=== PATIENT | male | born 1935 | race Caucasian/White ===

== ENCOUNTER → 2017-11-09 12:07 | Outpatient (CLI) | payer MEDICARE, OTHER, SELFPAY ==
[2017-11-09 13:39] LABS: Absolute Lymphocyte Count 1.45 X10^3/ul (0.83-4.51); Absolute Neutrophil Count 3.1 X10^3/uL (2.0-7.7); Basophil# 0.09 X10^3/uL; Basophil% 1.6 % (0-1); Eosinophil# 0.41 X10^3/uL; Eosinophils% 7.3 % (0-5); Hematocrit 37.6 % (40-54); Hemoglobin 11.5 g/dl (13.0-16.5); Lymphocyte # 1.45 X10^3/ul (4.0); Lymphocyte % 25.7 % (19-41); Mean Corp Hgb Conc 30.6 g/gl (32-36); Mean Corpuscular Hgb 25.8 pg (27.0-32.0); Mean Corpuscular Volume 84.5 fL (80-94); Mean Platelet Vol. 10.2 fl (6.2-12.0); Monocyte# 0.58 X10^3/uL; Monocyte% 10.3 % (0-10); Neutrophil % 54.9 % (47-70); Platelet Count 220 K/mm3 (150-450); RBC Distribution Width CV 13.7 % (11.6-14.6); RBC Distribution Width SD 42.2 fl (35.1-43.9); Red Blood Count 4.45 M/mm3 (4.6-6.2); White Blood Count 5.6 K/mm3 (4.4-11.0)
[2017-11-09 13:40] LABS: POSITIVE COUNT NO; POSITIVE DIFFERENTIAL NO; POSITIVE MORPHOLOGY NO
[2017-11-09 14:05] LABS: Hemoglobin A1c 6.4 % (4.2-6.3)
[2017-11-09 14:10] LABS: AST(SGOT) 19 U/L (15-37); Alanine Aminotransfer ALT/SGPT 25 U/L (16-61); Albumin, Serum 3.5 g/dL (3.2-5.0); Alkaline Phosphatase 42 U/L (45-117); Bilirubin, Direct 0.22 mg/dL (0.00-0.30); Cholesterol 164 mg/dL (200); Ferritin 14 ng/mL (26-388); Globulin 3.9 g/dL (2.2-4.2); High Density Lipoprotein 36 mg/dL; Protein, Total 7.4 g/dL (6.4-8.2); Triglycerides 113 mg/dL; Very Low Density Lipoprotein 23 mg/dL (5-40)
== END ==
PROVIDERS: Family Provider Family Medicine; PCP Family Medicine; Visit Provider Physician Assistant Medical
DX: E11.59 Type 2 diabetes mellitus with other circulatory complications (principal); D64.9 Anemia, unspecified; I10 Essential (primary) hypertension; E78.5 Hyperlipidemia, unspecified; Z79.899 Other long term (current) drug therapy
CPT/HCPCS: 80061; 80076; 82728; 83036; 85025

== ENCOUNTER 2017-12-15 15:30 | Outpatient (RCR) | payer MEDICARE, OTHER, SELFPAY ==
--- NOTE | 2017-11-29 19:17 | HP.PTEVAL_ITS ---
Patient's Visit Information AALIYAH HOLM is a 82 year old M referred to Physical Therapy by David Gustafson DO with a diagnosis of Spondylosis/R knee pain.. Date of Evaluation: 11/21/17 Physical Therapist: Dylan Mas DPT, OC - Visit Plan Frequency: 2x /Week Duration: 4 Weeks Plan: Cont w/POC. - Subjective Subjective: Sent over as he had the flu in June and was down for a long time. R knee hurts and limits him descending steps. Balance is not good anymore. No falls. No cane or walker needed. Very little LBP lately, not an issue. Hasn't had it in a week and it was 10. Sleep is OK except when nauseated on pill for that day. No dizzyness. Retired for 20 years. Basic ADLs are OK. He put in a garden and manages it himself without unsteadyiness. He enjoys playing musical instruments. Bedroom is upstairs which he climbs needing rail. He needs to be still when standing for balance. His goal is to get a HEP for balance and strength. - Pain R knee Pain Intensity (Out of 10): 5 Comment: w/ certain mvmts only LB Pain Intensity (Out of 10): 0 Pain Intensity Range: 0, 4 Comment: depends on the day - Objective Strength LE 4-/5, Knee aROM to 110 R and 115 L. LB AROM moderately limited in ext and SB, minimally limited in flexion.No pain. reflexes 2/3 patella and achilles. Sensation WNL to gross light touch in LE. Coordination to reciprocal tapping is OK. Kiki servin walks well but is hunched over in his posture. - Balance Scores Functional Gait Assessment Score: 24 % Disability: 20.0000 CATSIB Score (Max score 120 seconds): 105 - Goals Goal 1:: Up and down steps without R knee pain Goal Time Frame: 2-4 Weeks Goal 2:: abolish LBP Goal Time Frame: 2-4 Weeks Goal 3:: FGA 25/30 and feel 50% improved balance. Goal Time Frame: 2-4 Weeks Goal 4:: I approp HEP to minimize future problems. Goal Time Frame: 2-4 Weeks - Rehabilitation Potential Physical Therapy Diagnosis: R knee degeneration and gait abnormalities. Rehabilitation Potential: Fair - Anticipated Interventions Patient/Client Instruction: Educate patient on: Condition, Plan of Care For the Purpose of:: To decrease pain, To increase ROM, To improve ability of physical actions for home/community/work/leisure Therapeutic Exercise to Include: Strength training, Balance training, Passive ROM, Active ROM For the Purpose of:: To improve ability of physical actions for home/community/ work/leisure, To improve safety Thank you for the opportunity to evaluate your patient. For Medicare and Medicare HMO plans, please review the plan of care and approve it. It will need to be FAXED BACK to us at [phone] for Medicare purposes. Please let me know if there are questions or concerns regarding this plan of care. Physician Signature: Date:
--- NOTE | 2017-12-15 16:23 | HP.PTREVAL_ITS ---
David Gustafson, DO, It has been my pleasure to treat AALIYAH HOLM over the last 7 visits for Spondylosis/R knee pain.. Please see the progress note below for an update on the physical therapy plan of care! Subjective: Better. Then about the same LB is sore in am then it goes away. Knee doing OK but still doing one step neal time. Getting around better. Worked out in yard yesterday alot and stiff this morning. No f/u with doctor. On the right track, but will take a while. Has home ex sheet and doesn't do them as often as he should. Wants to continue at home. Wants to Objective/Function: Pt doing OK without much functional difference but wants to continue with HEP instead of more therapy. Plan Plan: f/u in 3 weeks to ensure progress and check balance and progress ex if needed. Goals Goal 1:: Up and down steps without R knee pain Goal Time Frame: 2-4 Weeks Goal Progress: Not Progressing Goal 2:: abolish LBP Goal Time Frame: 2-4 Weeks Goal Progress: hurts in am. Goal 3:: FGA 25/30 and feel 50% improved balance. Goal Time Frame: 2-4 Weeks Goal Progress: FGA met Goal 4:: I approp HEP to minimize future problems. Goal Time Frame: 2-4 Weeks Goal Progress: Goal Met Anticipated Interventions Patient/Client Instruction: Educate patient on: Condition, Plan of Care For the Purpose of:: To decrease pain, To increase ROM, To improve ability of physical actions for home/community/work/leisure Therapeutic Exercise to Include: Strength training, Balance training, Passive ROM, Active ROM For the Purpose of:: To improve ability of physical actions for home/community/ work/leisure, To improve safety Please do not hesitate to contact me at [phone] by phone or Fax: if you have questions or concerns regarding this new plan of care! Sincerely, Dylan Mas, JOANT, OC
--- NOTE | 2018-03-14 10:46 | HP.PT.NRP ---
HP - Discharge Summary (1) - Patient Information AALIYAH HOLM was seen in my office for initial evaluation on 11/21/17. The following Plan of Care was established for this patient: Initial Frequency: 2x /Week Initial Duration: 4 Weeks - Anticipated Interventions Patient/Client Instruction: Educate patient on: Condition, Plan of Care For the Purpose of:: To decrease pain, To increase ROM, To improve ability of physical actions for home/community/work/leisure Therapeutic Exercise to Include: Strength training, Balance training, Passive ROM, Active ROM For the Purpose of:: To improve ability of physical actions for home/community/work/leisure, To improve safety This patient was last seen in our office . Pertinent comments regarding their Physical therapy will appear below: Patient has not attended physical therapy in over 8 weeks. At this time patient is appropriate for d/c and return to MD as needed. At this point I will be discontinuing this patient from physical therapy. I would be happy to see this patient again in the future if found appropriate by the physician. Thank you! Areli Vogt
== END 2017-12-15 19:00 | disposition home or self-care (01) ==
LOC: PT 15:30
PROVIDERS: Family Provider Family Medicine; PCP Family Medicine; Visit Provider Family Medicine
DX: M25.561 Pain in right knee (principal); M47.896 Other spondylosis, lumbar region; R26.89 Other abnormalities of gait and mobility
CPT/HCPCS: 97110; 97162; 97530; G8978; G8979

== ENCOUNTER → 2018-05-02 12:15 | Outpatient (CLI) | payer MEDICARE, OTHER, SELFPAY ==
[2018-05-02 13:37] LABS: Absolute Lymphocyte Count 1.32 X10^3/ul (0.83-4.51); Absolute Neutrophil Count 2.6 X10^3/uL (2.0-7.7); Basophil# 0.07 X10^3/uL; Basophil% 1.5 % (0-1); Eosinophil# 0.29 X10^3/uL; Hematocrit 39.1 % (40-54); Hemoglobin 11.9 g/dl (13.0-16.5); Lymphocyte # 1.32 X10^3/ul (4.0); Lymphocyte % 27.5 % (19-41); Mean Corp Hgb Conc 30.4 g/gl (32-36); Mean Corpuscular Hgb 26.7 pg (27.0-32.0); Mean Corpuscular Volume 87.9 fL (80-94); Mean Platelet Vol. 10.7 fl (6.2-12.0); Monocyte# 0.51 X10^3/uL; Monocyte% 10.6 % (0-10); Neutrophil % 54.2 % (47-70); POSITIVE COUNT NO; POSITIVE DIFFERENTIAL NO; POSITIVE MORPHOLOGY NO; Platelet Count 209 K/mm3 (150-450); RBC Distribution Width CV 14.5 % (11.6-14.6); RBC Distribution Width SD 46.4 fl (35.1-43.9); Red Blood Count 4.45 M/mm3 (4.6-6.2); White Blood Count 4.8 K/mm3 (4.4-11.0)
[2018-05-02 13:55] LABS: Hemoglobin A1c 6.4 % (4.2-6.3)
[2018-05-02 14:12] LABS: Amylase 86 U/L (25-115); Anion Gap 8 (5-15); BUN 20 mg/dL (7-18); BUN/Creat Ratio 18.3 RATIO (10-20); Calcium,Total 8.8 mg/dL (8.5-10.1); Chloride 104 mmol/L (98-107); Creatinine, Serum 1.09 mg/dL (0.70-1.30); EST Glomerular Filtration Rate 69 mL/min (>60); Est Glom Filt Rate - Afr Amer 83 mL/min (>60); Ferritin 12 ng/mL (26-388); Glucose 110 mg/dL (74-106); Iron 71 ug/dL (65-175); Lipase 154 U/L (73-393); Potassium 3.9 mmol/L (3.5-5.1); Sodium Level 142 mmol/L (136-145)
== END ==
PROVIDERS: Family Provider Family Medicine; PCP Family Medicine; Referring Provider Family Medicine; Visit Provider Family Medicine
DX: R10.9 Unspecified abdominal pain (principal); E11.59 Type 2 diabetes mellitus with other circulatory complications; I10 Essential (primary) hypertension; D50.9 Iron deficiency anemia, unspecified
CPT/HCPCS: 36415; 80048; 82150; 82728; 83036; 83540; 83690; 85025

== ENCOUNTER 2018-08-24 12:23 | Emergency (ER) | payer MEDICARE, OTHER, SELFPAY ==
[2018-08-24 12:24] VITALS: BP 165/104; PULSE 60; RESP 16; TEMP 36.1; O2SAT 96; BMI 29.5
--- NOTE | 2018-08-24 13:50 | CT_ITS ---
STUDY: CT ABDOMEN AND PELVIS WITHOUT CONTRAST REASON FOR EXAM: Male, 83 years old. Bilateral upper abdominal pain. RADIATION DOSAGE (If Supplied By Facility): CTDIvol = ( 8.20 ) mGy, DLP = ( 368.74 ) mGycm TECHNIQUE: Transaxial images were obtained from the dome of the diaphragm to the symphysis pubis without oral contrast, and without intravenous contrast. Sagittal and coronal images were reconstructed. Individualized dose optimization techniques were used for this CT. COMPARISON: None. FINDINGS: Mild degree of increased linear markings in the posterior lateral aspect of the right lower lobe suggestive of scarring. Focal pleural thickening at that site. Mild degree of increased linear markings extending to the pleural surface in the lateral aspect of the lingular segment of the left upper lobe suggestive of scarring. Coronary artery calcification. Normal liver. Normal gallbladder and extrahepatic biliary system. Normal spleen. Normal pancreas. Normal bilateral adrenal glands. Normal right kidney. There is a 3.3 cm x 2.4 cm cyst in the anterior midportion of the left kidney. This extends into the parapelvic region. Normal visualized stomach. Normal small intestine. There are multiple colonic diverticula consistent with diverticulosis. The appendix is visualized and appears normal. There is diffuse atherosclerotic calcification of the abdominal aorta and the major visceral branches, without a demonstrated aneurysm. Normal inferior vena cava. Normal retroperitoneum. The bladder is empty. There is diffuse thickening of the bladder wall. There is enlargement of the prostate gland. It measures 4.6 cm x 4.6 cm. This causes indentation at the bladder base. Central prostatic calcification. Small bilateral inguinal hernias containing fat. There are degenerative changes of the visualized lumbar spine. CT/Abdomen/Pelvis without Cont IMPRESSION: Findings suggestive of scarring in the lower lobes bilaterally. Left renal cyst. Sigmoid diverticular disease. Bladder wall thickening. Electronically Signed: Scar Peña, at 15:39 EST , Service support ,
--- NOTE | 2018-08-24 13:50 | RAD_ITS ---
STUDY: X-RAY CHEST REASON FOR EXAM: Male, 83 years old. Chest pain. TECHNIQUE: Single AP portable view of the chest. COMPARISON: Comparison is made with prior study dated December 17, 2016. FINDINGS: Stable mild increased markings at the lung bases suggestive of bibasilar scarring. There is blunting of the right costophrenic angle. Sternal cerclage wires and vascular clips are present from a prior sternotomy and coronary artery bypass graft procedure (CABG). Normal mediastinum and sen. Normal visualized pulmonary arteries. There is atherosclerotic calcification of the aortic arch with tortuosity. There are diffuse degenerative changes of the visualized thoracic spine. Normal visualized ribs, clavicles, and shoulders. There is no demonstrated abnormality of the visualized soft tissue structures of the upper abdomen. RAD/Chest 1 View (Portable) IMPRESSION: Stable mild increased markings at the lung bases suggestive of scarring. Electronically Signed: Scar Peña, at 14:36 EST , Service support ,
--- NOTE | 2018-08-24 13:50 | EKG12_ITS ---
Test Reason : EPIGASTRIC PAIN Blood Pressure : / mmHG Vent. Rate : 057 BPM Atrial Rate : 057 BPM P-R Int : 234 ms QRS Dur : 096 ms QT Int : 416 ms P-R-T Axes : 108 005 022 degrees QTc Int : 404 ms Sinus bradycardia with 1st degree A-V block Otherwise normal ECG Confirmed by NILES PEARCE, OMAR ([id number]), department editor UVALDO MENDOSA ([id number]) on 08/29/2018 9:08:16 AM Referred By: BARTOLO Confirmed By:OMAR CAGE MD
[2018-08-24 14:18] VITALS: BP 176/76; PULSE 57; RESP 17; O2SAT 95
[2018-08-24 14:28] LABS: Absolute Lymphocyte Count 1.45 X10^3/ul (0.83-4.51); Absolute Neutrophil Count 3.3 X10^3/uL (2.0-7.7); Basophil# 0.05 X10^3/uL; Basophil% 0.9 % (0-1); Eosinophil# 0.26 X10^3/uL; Eosinophils% 4.8 % (0-5); Hematocrit 42.6 % (40-54); Lymphocyte # 1.45 X10^3/ul (4.0); Lymphocyte % 26.7 % (19-41); Mean Corp Hgb Conc 30.5 g/gl (32-36); Mean Corpuscular Hgb 26.6 pg (27.0-32.0); Mean Corpuscular Volume 87.1 fL (80-94); Mean Platelet Vol. 10.2 fl (6.2-12.0); Monocyte# 0.36 X10^3/uL; Monocyte% 6.6 % (0-10); Neutrophil # 3.31 X10^3/uL (2.7-7.7); Neutrophil % 60.8 % (47-70); Platelet Count 217 K/mm3 (150-450); RBC Distribution Width CV 14.8 % (11.6-14.6); RBC Distribution Width SD 47.4 fl (35.1-43.9); Red Blood Count 4.89 M/mm3 (4.6-6.2); White Blood Count 5.4 K/mm3 (4.4-11.0)
[2018-08-24 14:33] LABS: POSITIVE COUNT NO; POSITIVE DIFFERENTIAL NO; POSITIVE MORPHOLOGY NO
[2018-08-24 14:40] LABS: ALB/GLOB Ratio 0.9 RATIO (0.9-2.4); AST(SGOT) 22 U/L (15-37); Alanine Aminotransfer ALT/SGPT 34 U/L (16-61); Albumin, Serum 3.8 g/dL (3.2-5.0); Alkaline Phosphatase 50 U/L (45-117); Anion Gap 6 (5-15); BUN 19 mg/dL (7-18); BUN/Creat Ratio 18.6 RATIO (10-20); Calcium,Total 9.3 mg/dL (8.5-10.1); Chloride 100 mmol/L (98-107); Creatinine, Serum 1.02 mg/dL (0.70-1.30); EST Glomerular Filtration Rate 74 mL/min (>60); Est Glom Filt Rate - Afr Amer 89 mL/min (>60); Estimated Creatinine Clearance 43.39 ml/min; Globulin 4.1 g/dL (2.2-4.2); Glucose 112 mg/dL (74-106); Lipase 164 U/L (73-393); Potassium 3.9 mmol/L (3.5-5.1); Protein, Total 7.9 g/dL (6.4-8.2); Sodium Level 136 mmol/L (136-145)
[2018-08-24 16:04] VITALS: BP 136/72; PULSE 57; RESP 18; O2SAT 94
--- NOTE | 2018-08-24 16:04 | ED.VISSUMM ---
- ER Visit Summary Date of Service: 08/24/18 Chief Complaint: Abdominal pain History of Present Illness: The patient is a [address] Gustafson and Dr. Cardoso. He reports that he was pulling on his support hose last night when he got a cramp in the upper left abdomen. States that he continues to have that pain. He reports it was sharp at worst and is crampy now. 7 out of 10 worsened through 10 currently. Is worsened by nothing relieved by nothing. He had nausea without vomiting. No diarrhea. Last bowel was yesterday. No melena hematochezia. No dysuria frequency. Review of systems patient reports that he has chest pain just above this area. He describes this as a tightness. States that it comes and goes ever since last night. His last minute at a time. Is 2 out of 10 currently. Is 4-10 at worst. This is unchanged with exertion or ambulation. He does report that he feels mildly short of breath. Patient does report he has had similar abdominal pain in the past after eating cheese. He denies any specific fatty food intolerance however. Physical Examination: Vitals: Stable. Afebrile. General: Well-nourished and well-developed. Head: Normocephalic atraumatic. Neck: Supple, no lymphadenopathy. No JVD. Nontender. Cardiovascular: Regular rate and rhythm. 2 out of 6 systolic murmur. Respiratory: No respiratory distress. Clear to auscultation bilaterally. Abdominal: Soft, nontender, nondistended, normal bowel sounds. No guarding, rebound, or peritoneal signs. Back: Nontender. Extremities: Nontender, no edema. Skin: Normal color, no rash. Neurologic: Alert and oriented ?3. Cranial nerves II through XII are intact. Normal strength and sensation. Psych: Normal affect. Test Results: EKG sinus bradycardia with first-degree AV block rate of [address] changes. Unchanged from February 2015. CBC is normal. Chem-7 shows a glucose 112 and BUN of 19. LFTs normal. Lipase normal. Troponin is 0.023. Reviewed his prior labs. From 07/2014 his troponin was 0.02-0.05. Chest x-ray shows chronic changes. Clinical Impression(s) from Imaging Studies Abdomen/Pelvis CT 08/24/18 13:50 IMPRESSION: Findings suggestive of scarring in the lower lobes bilaterally. Left renal cyst. Sigmoid diverticular disease. Bladder wall thickening. Electronically Signed: Scar Peña, at 15:39 EST , Service support , Chest X-Ray 08/24/18 13:50 IMPRESSION: Stable mild increased markings at the lung bases suggestive of scarring. Electronically Signed: Scar Peña, at 14:36 EST , Service support , Emergency Department Course and Treatment: Patient refused pain or nausea medications. He is resting comfortably. I reviewed his records. He had a stress test in June 2017 that was normal. His ejection fraction was 74%. His chest pain is very atypical at this time. I do not feel that he needs to be hospitalized for this. Treatment Plan: Discussed the patient that I suspect that his abdominal pain is from a abdominal wall strain while putting on his support hose last night. However, I also discussed them that I cannot rule out that he has biliary disease. He is instructed to follow-up Dr. Gustafson in 1 day for another exam. Return to the emergency department for any worsening symptoms. Disposition: To home in improved and stable condition. Impression: 1. Abdominal pain, uncertain cause. This note was generated with [employer] dictation software. It may contain incorrect words, spelling, and punctuation that were not noted in review of the chart prior to signing ED Disposition - Plan for ED Patient: Disposition: Home or Assisted Living Instructions: ED Abdominal Pain Unkn Cause Prescriptions: Ondansetron [Zofran Odt] 4 mg PO Q8H PRN PRN #10 tablet PRN Reason: Nausea Referrals: David Gustafson DO [Primary Care Provider] - 1 Day for another exam
[2018-08-24 16:12] VITALS: BP 136/72; PULSE 57; O2SAT 95
== END 2018-08-24 16:17 | disposition home or self-care (01) ==
LOC: ED 14:40
PROVIDERS: Emergency Provider Emergency Medicine; Family Provider Family Medicine; PCP Family Medicine
DX: R10.9 Unspecified abdominal pain (principal); R07.89 Other chest pain; R11.0 Nausea; I25.10 Atherosclerotic heart disease of native coronary artery without angina pectoris; I44.0 Atrioventricular block, first degree; R00.1 Bradycardia, unspecified; I10 Essential (primary) hypertension; R73.03 Prediabetes; Z79.01 Long term (current) use of anticoagulants; Z86.711 Personal history of pulmonary embolism; Z86.73 Personal history of transient ischemic attack (TIA), and cerebral infarction without residual deficits; Z79.82 Long term (current) use of aspirin; Z79.899 Other long term (current) drug therapy
CPT/HCPCS: 71045; 74176; 80053; 83690; 84484; 85025; 93005; 99284; A4216

== ENCOUNTER → 2018-11-01 11:14 | Outpatient (CLI) | payer MEDICARE, OTHER, SELFPAY ==
[2018-11-01 12:48] LABS: Absolute Lymphocyte Count 1.65 X10^3/ul (0.83-4.51); Absolute Neutrophil Count 2.8 X10^3/uL (2.0-7.7); Basophil# 0.09 X10^3/uL; Basophil% 1.6 % (0-1); Eosinophil# 0.42 X10^3/uL; Eosinophils% 7.6 % (0-5); Hematocrit 40.4 % (40-54); Hemoglobin 12.8 g/dl (13.0-16.5); Lymphocyte # 1.65 X10^3/ul (4.0); Lymphocyte % 29.9 % (19-41); Mean Corp Hgb Conc 31.7 g/gl (32-36); Mean Corpuscular Hgb 27.6 pg (27.0-32.0); Mean Corpuscular Volume 87.1 fL (80-94); Mean Platelet Vol. 10.6 fl (6.2-12.0); Monocyte# 0.54 X10^3/uL; Monocyte% 9.8 % (0-10); Neutrophil % 50.7 % (47-70); Platelet Count 204 K/mm3 (150-450); RBC Distribution Width CV 14.3 % (11.6-14.6); RBC Distribution Width SD 44.8 fl (35.1-43.9); Red Blood Count 4.64 M/mm3 (4.6-6.2); White Blood Count 5.5 K/mm3 (4.4-11.0)
[2018-11-01 12:49] LABS: POSITIVE COUNT NO; POSITIVE DIFFERENTIAL NO; POSITIVE MORPHOLOGY NO
[2018-11-01 13:04] LABS: Hemoglobin A1c 6.5 % (4.2-6.3)
[2018-11-01 13:12] LABS: ALB/GLOB Ratio 0.9 RATIO (0.9-2.4); AST(SGOT) 22 U/L (15-37); Alanine Aminotransfer ALT/SGPT 33 U/L (16-61); Albumin, Serum 3.5 g/dL (3.2-5.0); Alkaline Phosphatase 40 U/L (45-117); Anion Gap 7 (5-15); BUN 25 mg/dL (7-18); BUN/Creat Ratio 23.1 RATIO (10-20); Bilirubin, Direct 0.17 mg/dL (0.00-0.30); Chloride 103 mmol/L (98-107); Cholesterol 182 mg/dL (200); Creatinine, Serum 1.08 mg/dL (0.70-1.30); EST Glomerular Filtration Rate 69 mL/min (>60); Est Glom Filt Rate - Afr Amer 84 mL/min (>60); Ferritin 26 ng/mL (26-388); Globulin 3.7 g/dL (2.2-4.2); Glucose 114 mg/dL (74-106); High Density Lipoprotein 38 mg/dL; Potassium 3.5 mmol/L (3.5-5.1); Protein, Total 7.2 g/dL (6.4-8.2); Sodium Level 142 mmol/L (136-145); Triglycerides 131 mg/dL; Uric Acid 7.7 mg/dL (3.5-7.2); Very Low Density Lipoprotein 26 mg/dL (5-40)
[2018-11-01 13:15] LABS: Microalbumin,Random Urine 11.5 mg/L (NO RANGE EST.)
== END ==
PROVIDERS: Physician Assistant Medical; Family Provider Family Medicine; PCP Family Medicine; Referring Provider Family Medicine; Visit Provider Family Medicine
DX: E11.59 Type 2 diabetes mellitus with other circulatory complications (principal); I10 Essential (primary) hypertension; D50.9 Iron deficiency anemia, unspecified; E78.5 Hyperlipidemia, unspecified; M10.9 Gout, unspecified
CPT/HCPCS: 36415; 80053; 80061; 82043; 82248; 82570; 82728; 83036; 84550; 85025

== ENCOUNTER → 2018-12-20 10:52 | Outpatient (CLI) | payer MEDICARE, OTHER, SELFPAY ==
[2018-12-11 14:30] VITALS: BMI 29.0
== END ==
PROVIDERS: Family Provider Family Medicine; PCP Family Medicine; Referring Provider Internal Medicine Cardiovascular Disease; Visit Provider Internal Medicine Cardiovascular Disease
DX: R00.2 Palpitations (principal)
CPT/HCPCS: 93225; 93226

== ENCOUNTER → 2018-12-22 12:40 | Outpatient (CLI) | payer MEDICARE, OTHER, SELFPAY ==
[2018-12-11 14:30] VITALS: BMI 29.0
--- NOTE | 2018-12-22 12:42 | ECHOD_ITS ---
Reason For Study: Valve Replacement Eval Procedure This was a 2D Doppler, Color Flow transthoracic echocardiogram. Exam performed in department. Left Ventricle Normal LV size. Left ventricular systolic function is normal. The estimated ejection fraction is 60 %. There is evidence of diastolic dysfunction. No regional wall motion abnormalities noted. Right Ventricle Normal RV size. Normal systolic function. Atria The left atrium is mildly enlarged. Normal right atrium. No doppler evidence for ASD. Bubble contrast study negative for right to left interatrial shunt. 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 Trivial transvalvular insufficiency of the mitral valve. Tricuspid Valve Normal tricuspid valve. Mild to moderate (1-2+) tricuspid valve insufficiency. Right ventricular systolic pressure estimated to be 39 mmHg. Aortic Valve Trisinus/trileaflet aortic valve. Mild diffuse aortic valve thickening. Mild focal aortic valve calcification. Aortic sclerosis, no stenosis. Trivial aortic valve insufficiency. Pulmonic Valve The pulmonic valve is not well visualized. Mild (1+) pulmonic valve insufficiency. Great Vessels Normal sized aortic root. Pericardium/Pleural No pericardial effusion. Medication Performed a rapid injection of agitated mix of 9 cc saline and 1cc air to assess for atrial septal defect. MMode/2D Measurements & Calculations LVIDd: 4.1 cm IVSd: 1.2 cm Ao root diam: 3.3 cm LVIDs: 2.9 cm LVPWd: 1.2 cm RVDd: 4.4 cm FS: 29.6 % LAV(MOD-bp): 51.6 ml LVAd ap4: 24.5 cm2 SV(MOD-sp4): 40.0 ml LAV(MOD-bp) Indexed: 29.0 ml/m2 EDV(MOD-sp4): 67.4 ml LAV(MOD-sp2): 39.9 ml EDV(sp4-el): 71.4 ml LAV(MOD-sp4): 61.1 ml LVAs ap4: 13.8 cm2 ESV(MOD-sp4): 27.5 ml ESV(sp4-el): 28.5 ml EF(MOD-sp4): 59.3 % EF(sp4-el): 60.0 % SV(sp4-el): 42.9 ml LA A4 area: 20.3 cm2 LA dimension(2D): 4.7 cm RA A4 area: 19.3 cm2 Time Measurements MV dec time: 0.10 sec Doppler Measurements & Calculations MV E max tan: 115.9 cm/sec Lat Peak E' Tan: 5.4 cm/sec Med Peak E' Tan: 6.3 cm/sec MV A max tan: 125.3 cm/sec E/E' lat: 21.4 E/E' med: 18.3 MV E/A: 0.92 MV V2 max: 144.1 cm/sec MV P1/2t max tan: 116.5 cm/sec Ao V2 max: 174.5 cm/sec MV max P.3 mmHg MV P1/2t: 77.4 msec Ao max P.2 mmHg MV V2 mean: 71.1 cm/sec MV dec slope: 440.8 cm/sec2 Ao V2 mean: 117.9 cm/sec MV mean P.5 mmHg MVA(P1/2t): 2.8 cm2 Ao mean P.2 mmHg MV V2 VTI: 40.7 cm Ao V2 VTI: 35.6 cm LV V1 max: 109.5 cm/sec PA V2 max: 111.7 cm/sec PI end-d tan: 114.6 cm/sec LV V1 max P.8 mmHg TR max tan: 301.2 cm/sec TR max P.3 mmHg Interpretation Summary Left ventricular systolic function is normal. The estimated ejection fraction is 60 %. The left atrium is mildly enlarged. 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 Trivial transvalvular insufficiency of the mitral valve. Mild to moderate (1-2+) tricuspid valve insufficiency. Aortic sclerosis, no stenosis. Trivial aortic valve insufficiency. Mild (1+) pulmonic valve insufficiency. Right ventricular systolic pressure estimated to be 39 mmHg. There is evidence of diastolic dysfunction. Ordering Physician: Pierre Cardoso Referring Physician: David Gustafson Performed By: Shaila Camacho, ELVISCS, RVT
== END ==
PROVIDERS: Family Provider Family Medicine; PCP Family Medicine; Referring Provider Internal Medicine Cardiovascular Disease; Visit Provider Internal Medicine Cardiovascular Disease
DX: Z98.890 Other specified postprocedural states (principal)
CPT/HCPCS: 93306; A4216

== ENCOUNTER 2019-04-06 13:34 | Emergency (ER) | payer MEDICARE, OTHER, SELFPAY ==
[2018-12-11 14:30] VITALS: BMI 29.0
[2019-04-06 13:36] VITALS: BP 156/88; PULSE 66; RESP 16; TEMP 36.7; O2SAT 98; BMI 28.8
--- NOTE | 2019-04-06 13:42 | VDLE_ITS ---
Reason For Study: PAIN RIGHT LEFT CFV is compressible, spontaneous, phasic, CFV is compressible, spontaneous, phasic, competent and demonstrates normal competent, and demonstrates normal augmentation. augmentation. FV is compressible, spontaneous, phasic, competent and demonstrates normal augmentation. POP V is compressible, spontaneous, phasic, competent and demonstrates normal augmentation. T/P Trunk is compressible. PTV is compressible. RT PerV is compressible. RT ASV is NONCOMPRESSIBLE from mid-thigh to just above knee. RT GSV is NONCOMPRESSIBLE from mid-calf to distal calf. Procedure Exam performed portable in ED. A preliminary report was called and/or faxed to ED. Interpretation Summary Deep veins of the right lower extremity are patent and compressible segmentally. There is no evidence of right lower extremity deep vein thrombosis. Valvular competence appears intact within the proximal deep venous system on the right . Acute superficial thrombophlebitis is noted in the right great saphenous vein from the mid- to distal calf, and in the right accessory saphenous vein from the mid-thigh to just above the knee. Ordering Physician: Anthony Hedrick Referring Physician: MONTY GREENE Performed By: Minerva Oropeza, BETH, RVT
--- NOTE | 2019-04-06 13:53 | ED.DCSUM_ITS ---
- ER Visit Summary Date of Service: 04/06/19 Chief Complaint: Right lower extremity pain History of Present Illness: The patient is a 83 M with a history of DVT. He stopped taking Xarelto about 10 days ago under his doctor's care secondary to multiple medication reactions. He was not having any bleeding. He is having increasing redness and pain to his right medial thigh and right medial richter. Denies any other associated symptoms. He does not have an IVC filter. Physical Examination: Afebrile and vital signs unremarkable. Heart regular. Lungs clear. Patient has erythema and mild tenderness to his right medial mid thigh and right medial richter with palpable cords. Otherwise compartments soft and exam unremarkable. He is neurovascular intact distally. Test Results: Duplex ultrasound pending. Emergency Department Course and Treatment: Patient requests Tylenol for pain. We will check an ultrasound. Ultrasound shows superficial clots, no deep venous clots. Patient was educated to use warm compresses, anti-inflammatories, and elevation. Follow-up with primary care. Treatment Plan: As above Disposition: Discharge Impression: 1. Superficial venous thrombophlebitis This note was generated with [employer] dictation software. It may contain incorrect words, spelling, and punctuation that were not noted in review of the chart prior to signing ED Disposition - Plan for ED Patient: Referrals: David Gustafson DO [Primary Care Provider] -
--- NOTE | 2019-04-06 14:42 | ED.DEP ---
ED Disposition - Plan for ED Patient: Instructions: THROMBOPHLEBITIS, Superficial Referrals: David Gustafson DO [Primary Care Provider] -
[2019-04-06 14:48] VITALS: BP 144/74; PULSE 77; RESP 18; O2SAT 96
== END 2019-04-06 14:49 | disposition home or self-care (01) ==
LOC: ED 13:52
PROVIDERS: Emergency Provider Emergency Medicine; Family Provider Family Medicine; PCP Family Medicine
DX: I80.01 Phlebitis and thrombophlebitis of superficial vessels of right lower extremity (principal); I25.10 Atherosclerotic heart disease of native coronary artery without angina pectoris; E11.9 Type 2 diabetes mellitus without complications; I10 Essential (primary) hypertension; Z79.01 Long term (current) use of anticoagulants; Z79.82 Long term (current) use of aspirin; Z79.899 Other long term (current) drug therapy; Z86.718 Personal history of other venous thrombosis and embolism; Z95.1 Presence of aortocoronary bypass graft; Z95.5 Presence of coronary angioplasty implant and graft
CPT/HCPCS: 93971; 99282

== ENCOUNTER 2019-04-14 06:43 | Observation (INO) | payer MEDICARE, OTHER, SELFPAY ==
[2019-04-14] VITALS (16 sets, daily range): BP systolic 114–181; BP diastolic 56–91; PULSE 63–76; RESP 14–22; TEMP 36.5–36.8; O2SAT 94–100; BMI 29.0; BMI 28.9
--- NOTE | 2019-04-14 06:56 | CT_ITS ---
STUDY: CT BRAIN WITHOUT CONTRAST REASON FOR EXAM: Male, 83 years old. Confusion. RADIATION DOSAGE (If Supplied By Facility): CTDIvol = ( 44.99 ) mGy, DLP = ( 779.24 ) mGycm TECHNIQUE: Transaxial CT imaging of the brain was performed without administration of intravenous contrast material. Individualized dose optimization techniques were used for this CT. COMPARISON: No relevant priors. FINDINGS: There is no scalp hematoma. There are no calvarial fractures. A cavum septum pellucidum at verge is in place. The ventricles are otherwise normal with no midline shift. The cortical sulci and basal cisterns are normal. There is no acute hemorrhage or acute infarction and no intra or extra-axial tumor mass. The orbits, paranasal sinuses and mastoid air cells are normal.. CT/Brain/Head without Contrast IMPRESSION: No acute findings in the brain Electronically Signed: Sha Whitt MD at 7:48 EDT Tel , Service support ,
--- NOTE | 2019-04-14 06:56 | EKG12_ITS ---
Test Reason : Blood Pressure : / mmHG Vent. Rate : 065 BPM Atrial Rate : 065 BPM P-R Int : 220 ms QRS Dur : 094 ms QT Int : 416 ms P-R-T Axes : 190 -06 019 degrees QTc Int : 432 ms Unusual P axis, possible ectopic atrial rhythm Abnormal ECG Confirmed by NILES PEARCE, OMAR ([id number]), non linear editor TYLER PEÑA ([id number]) on 04/17/2019 10:47:55 AM Referred By: Manohar Martin Confirmed By:OMAR CAGE MD
--- NOTE | 2019-04-14 06:57 | RAD_ITS ---
STUDY: X-RAY CHEST REASON FOR EXAM: Male, 83 years old. Cough. TECHNIQUE: Single AP portable view of the chest. COMPARISON: 08/24/2018. FINDINGS: The lungs are slightly underexpanded with mild vascular crowding. There is mild right basilar atelectasis, stable. Remainder of the lung torres are clear. There is no demonstrated pleural abnormality. Sternal cerclage wires are present from a prior sternotomy. Heart maintains normal size. Normal mediastinum and sen. Normal visualized pulmonary arteries. There is atherosclerotic tortuosity of the aortic arch and descending thoracic aorta. There are diffuse degenerative changes of the visualized thoracic spine. There is degenerative osteoarthritis of the bilateral shoulders. There is no demonstrated abnormality of the visualized soft tissue structures of the upper abdomen. RAD/Chest 1 View (Portable) IMPRESSION: Right lower lobe atelectasis, stable study in the interval. No acute process identified. Electronically Signed: Casandra Hernandez MD at 8:01 EDT , Service support ,
--- NOTE | 2019-04-14 06:58 | ED.VIS.GEN ---
History of Present Illness Chief Complaint: General Illness Narrative: Patient is an 83-year-old male who presents with altered mental status. He is unable to provide any clear history and unfortunately is a very poor informant. Patient states his called the ambulance due to nausea. The patient denies any pain. He was unable to provide any history beyond this. Initially had stated that symptoms have been going on for a couple of weeks and discusses that he had an ultrasound of his legs for clot and that he is seen a marketing reporting analyst for a rash. However she then goes on to explain that the patient was confused this morning. He seemed disoriented. He asked her to turn off the radio when he was wrapped raising the television which she states scared her so she called EMS. She states he has not had recent illness otherwise as far as fevers vomiting diarrhea. He is not mention any chest pain abdominal pain or difficulty breathing. On record review he does have a history of DVT and was previously anticoagulated and recently taken off of anticoagulation. Past Medical History - Allergies and Home Meds Allergies/Adverse Reactions: Allergies amlodipine Adverse Reaction (Severe, Verified 04/14/19 06:52) Swelling of feet isosorbide Adverse Reaction (Severe, Verified 04/14/19 06:52) Swelling of feet losartan Adverse Reaction (Severe, Verified 04/14/19 06:52) Loss of Appetite Wnxfolw-Alk-Ciz Reductase Inhibitor Adverse Reaction (Verified 04/14/19 06:52) Upset Stomach Primary Care Physician: David Gustafson DO [Primary Care Provider] - Past Medical History: - - Hypertension, coronary artery disease, history of stroke Surgical History: angioplasty, coronary bypass surgery, - Smoking Status: Unknown if ever smoked - Family History Maternal Family History: Family History (Last Reviewed 01/23/18 @ 14:18 by Renetta Caldera) Father CVA (cerebral vascular accident) Mother No problems noted. Family History: Reports: No pertinent history Paternal Family History: Family History (Last Reviewed 01/23/18 @ 14:18 by Renetta Caldera) Father CVA (cerebral vascular accident) Mother No problems noted. Family History: Reports: Stroke Sibling Family History: Family History (Last Reviewed 01/23/18 @ 14:18 by Renetta Caldera) Father CVA (cerebral vascular accident) Mother No problems noted. Family History: Reports: Heart Disease - Congenital heart abnormality believed to be a coarctation of the aorta Review of Systems ROS: Unable to Obtain Physical Exam Vital Signs/Narrative: Vital Signs Temp Pulse Resp BP Pulse Ox 04/14/19 06:52 65 20 H 180/84 H 95 04/14/19 06:45 97.9 F 65 22 H 181/91 H 95 Inital Vital Signs reviewed: Yes General: No Acute Distress Head: Normocephalic, Atraumatic Eyes: EOMI ENT: Moist mucous membranes Neck: Supple Cardiovascular: - - Heart is regular rate Respiratory: No distress, CTA bilaterally Abdomen: Soft, Nontender Neurological: - - Confused, slow to respond however he does answer month age place birthday all appropriately he is moving all 4 extremities no facial droop, NIHSS is two, 1 for LOC and 1 for dysarthria although I believe his dysarthria is more related to his altered mental status and drowsiness Diagnostic/Tx/Re-eval - Medical Decision Making Unfortunately the duration of the patient's symptoms is unclear from the patient and from family. Work-up has been ordered including EKG chest x-ray laboratory studies urinalysis CT of the head ABG. Workup is pending at the time of this dictation. Patient signed out to the oncoming physician for further management and to follow-up on results. ED Disposition - Plan for ED Patient: Diagnosis: Altered mental status Referrals: David Gustafson DO [Primary Care Provider] -
[2019-04-14 07:12] LABS: Absolute Lymphocyte Count 1.35 X10^3/uL (0.83-4.51); Absolute Neutrophil Count 5.3 X10^3/uL (2.0-7.7); Basophil# 0.06 X10^3/uL; Basophil% 0.8 % (0-1); Eosinophil# 0.21 X10^3/uL; Eosinophils% 2.7 % (0-5); Hematocrit 43.8 % (40-54); Lymphocyte # 1.35 X10^3/ul (4.0); Lymphocyte % 17.5 % (19-41); Mean Corpuscular Hgb 28.8 pg (27.0-32.0); Mean Corpuscular Volume 90.1 fL (80-94); Mean Platelet Vol. 10.5 fl (6.2-12.0); Monocyte# 0.79 X10^3/uL; Monocyte% 10.2 % (0-10); NRBC Flagged by Analyzer 0 % (0-5); Neutrophil # 5.27 X10^3/uL (2.7-7.7); Neutrophil % 68.2 % (47-70); Platelet Count 204 K/mm3 (150-450); RBC Distribution Width CV 12.8 % (11.6-14.6); RBC Distribution Width SD 42.3 fl (35.1-43.9); Red Blood Count 4.86 M/mm3 (4.6-6.2); White Blood Count 7.7 K/mm3 (4.4-11.0)
[2019-04-14 07:16] LABS: Prothrombin Time (Protime)PT. 12.9 SECONDS (11.7-14.9)
[2019-04-14 07:25] LABS: Allen Test POS; Base Excess 7 mmol/L (-2 to +2); Bicarbonate 31.1 mmol/L (22-26); Blood Gas Specimen Type ART; O2 Delivery Device Room Air; PO2 69 mmHG (75-100); SITE R Radial; SO2 94 % (95-99); Time Given 712; Total Carbon Dioxide 32 mmol/L; pCO2 45.4 mmHg (35-45); pH 7.44 (7.35-7.45)
[2019-04-14 07:32] LABS: Mucous, Urine 0 SEEN /hpf (<or=2+); Red Blood Cells-Urine 0 SEEN /hpf (0-5); Squamous Epithelial Cells - UA 0 SEEN /hpf (0-5); White Blood Cells 0 SEEN /hpf (0-5)
[2019-04-14 07:33] LABS: Anion Gap 6 (5-15); BUN 22 mg/dL (7-18); BUN/Creat Ratio 20.2 RATIO (10-20); Calcium,Total 9.1 mg/dL (8.5-10.1); Chloride 100 mmol/L (98-107); Creatinine, Serum 1.09 mg/dL (0.70-1.30); EST Glomerular Filtration Rate 68 mL/min (>60); Est Glom Filt Rate - Afr Amer 83 mL/min (>60); Glucose 139 mg/dL (74-106); Potassium 3.6 mmol/L (3.5-5.1); Sodium Level 137 mmol/L (136-145)
[2019-04-14 07:36] LABS: Color, Urine Yellow (Yellow); Glucose, Dipstick Normal (Normal); Ketone-Dipstick 5 mg/dl (Negative); Leukocyte Esterase-Dipstick Negative /ul (Negative); Nitrite-Dipstick Negative (Negative); Occult Blood-Urine Negative /ul (Negative); Protein-Dipstick 15 mg/dl (Negative); Urine Bilirubin Dipstick Negative (Negative); Urine Clarity Sl. Cloudy (Clear); Urine Urobilinogen Normal (Normal)
[2019-04-14 07:47] LABS: Bacteria RARE /hpf (None Seen)
[2019-04-14] MEDS: Ondansetron 4 MG/2 ML Vial IV ×2 (07:49→19:01)
--- NOTE | 2019-04-14 07:57 | CT_ITS ---
STUDY: CTA HEAD AND NECK WITH CONTRAST REASON FOR EXAM: Male, 83 years old. Confusion. Nausea. RADIATION DOSAGE (If Supplied By Facility): CTDIvol = ( 23.83 ) mGy, DLP = ( 677.06 ) mGycm TECHNIQUE: CT angiography was performed with a multi-detector CT scanner. Data acquisition was obtained from the skull base through the vertex following intravenous administration of IV Isovue 370 100CC. MIP images were reconstructed from the axial data set. Post-processing of the angiographic images was performed, with multiplanar reformation and 3D reconstruction. Individualized dose optimization techniques were used for this CT. COMPARISON: No relevant priors. FINDINGS: Normal bilateral petrous carotid arteries. There is calcified plaque formation of the right cavernous carotid artery, without a cross-sectional luminal stenosis. There is calcified plaque formation of the left cavernous carotid artery, without a cross-sectional luminal stenosis. Normal right A1 segments of the anterior cerebral artery. Normal left A1 segments of the anterior cerebral artery. Normal intact anterior communicating artery (ACOM). Normal bilateral A2 segments of the anterior cerebral arteries. Normal right M1 and M2 segments of the middle cerebral arteries, with a normal M1 bifurcation. Normal left M1 and M2 segments of the middle cerebral arteries, with a normal M1 bifurcation. Normal right posterior communicating artery (PCOM). Normal left posterior communicating artery (PCOM). Normal bilateral vertebral arteries. Normal basilar artery with a normal basilar bifurcation. The visualized bilateral superior cerebellar (SCA) arteries are normal. Normal bilateral P1, P2 and visualized P3 segments of the posterior cerebral arteries. There is no demonstrated aneurysm of the ig[place] of [place]. There is no demonstrated abnormality of the visualized brain. AORTIC ARCH: Normal visualized aortic arch. Normal origins of the brachiocephalic, left common carotid, and left subclavian arteries. RIGHT CAROTID ARTERIES: Normal right common carotid artery (CCA). There is mild atherosclerotic plaque formation with minimal narrowing of the right carotid bulb. There is mild atherosclerotic plaque formation of the origin of the right internal carotid artery with less than 50% cross sectional diameter stenosis. There is atherosclerotic tortuous elongation of the cervical portion of the right internal carotid artery. Normal origin of the right external carotid artery (ECA). LEFT CAROTID ARTERIES: Normal left common carotid artery (CCA). There is mild atherosclerotic plaque formation with minimal narrowing of the left carotid bulb. There is mild atherosclerotic plaque formation of the origin of the left internal carotid artery with less than 50% cross sectional diameter stenosis. Normal visualized cervical portion of the left internal carotid artery. Normal origin of the left external carotid artery (ECA). VERTEBRAL ARTERIES: Normal bilateral vertebral arteries. CT/CTA Head AND Neck W/ Contrast IMPRESSION: Atherosclerotic plaque. No high-grade stenosis or occlusion. Electronically Signed: Néstor Molina MD at 9:28 EDT , Service support ,
[2019-04-14] MEDS: Metoclopramide 10 MG/2 ML Vial 5 MG IV (09:12)
[2019-04-14] MEDS: Acetaminophen 325 MG Tablet 650 MG PO ×2 (09:14→17:35)
--- NOTE | 2019-04-14 10:01 | NURSING ---
DR EDSON NIX
--- NOTE | 2019-04-14 10:03 | NURSING ---
PCU OBS KITTOE DELIRIUM, ACCELERATED HTN
--- NOTE | 2019-04-14 10:08 | PCM.HP.STD ---
Problem List (1) Accelerated hypertension Status: Acute (2) Altered mental status Status: Acute (3) History of mitral valve repair Status: Chronic Comment: annuloplasty 31mm Mildred Austin ring 12/05/96 (4) Presence of stent in coronary artery Status: Chronic Comment: PTCA/JODY PDA and PTCA/JODY in distal RCA to prox Rt posterior atrioventricular artery 09/03/14 (5) Pure hypercholesterolemia Status: Chronic (6) Essential hypertension Status: Chronic (7) Non-rheumatic mitral regurgitation Status: Chronic (8) Atherosclerotic heart disease of [place] coronary artery without angina pectoris Status: Chronic Qualifiers: [place] vs. transplanted heart: [place] heart Qualified Code(s): I25.10 - Atherosclerotic heart disease of [place] coronary artery without angina pectoris (9) Encounter for long-term current use of high risk medication Status: Chronic (10) Carotid bruit Status: Chronic (11) Palpitations Status: Chronic (12) Chest pressure Status: Acute (13) S/P CABG x 1 Status: Chronic Comment: CABG X1- MELENDEZ graft to LAD and Mitral annuloplasty using #31 MM ring November 1996 (14) 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 (15) Chest pain Status: Resolved History of Present Illness Date of Admission: 04/14/19 Chief Complaint: Confusion and elevated blood pressure The patient is a 83 year old M with multiple comorbidities including CAD status post CABG with subsequent stent placement, hypertension, who presented with confusion. Much of the history was provided by the . Per patient's patient was apparently restless throughout the whole night. Patient finally reported not feeling right on the morning of his presentation. The EMS squad was called who found patient to have markedly elevated blood pressure. Patient was subsequently sent to the ED. Work-up in the ED was unremarkable for elevated systolic blood pressure of 184. Subsequently admitted to monitored bed for further evaluation and management. Past Medical History Past Medical History (Chronic Problems): Chronic Problems (Last Reviewed 04/14/19 @ 10:43 by Manohar Martin MD) History of mitral valve repair (Chronic ~12/05/96) annuloplasty 31mm Mildred Austin ring 12/05/96 Presence of stent in coronary artery (Chronic ~09/03/14) PTCA/JODY PDA and PTCA/JODY in distal RCA to prox Rt posterior atrioventricular artery 09/03/14 Pure hypercholesterolemia (Chronic) Essential hypertension (Chronic) Non-rheumatic mitral regurgitation (Chronic) Atherosclerotic heart disease of [place] coronary artery without angina pectoris (Chronic) Encounter for long-term current use of high risk medication (Chronic) Carotid bruit (Chronic) Palpitations (Chronic) S/P CABG x 1 (Chronic ~12/05/96) CABG X1- MELENDEZ graft to LAD and Mitral annuloplasty using #31 MM ring November 1996 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) Medical History: Medical History (Last Reviewed 04/14/19 @ 10:43 by Manohar Martin MD) Presence of stent in coronary artery (Chronic) Onset Date: ~09/03/14 Z95.5 PTCA/JODY PDA and PTCA/JODY in distal RCA to prox Rt posterior atrioventricular artery 09/03/14 Pure hypercholesterolemia (Chronic) E78.00 Essential hypertension (Chronic) I10 Non-rheumatic mitral regurgitation (Chronic) I34.0 Atherosclerotic heart disease of [place] coronary artery without angina pectoris (Chronic) I25.10 Palpitations (Chronic) R00.2 Arthritis M19.90 Bloody stool K92.1 Difficulty balancing R29.818 Knee pain M25.569 SOB (shortness of breath) R06.02 Stroke I63.9 CAD (coronary artery disease) (Inactive) I25.10 CABG MELENDEZ graft to LAD and Mitral annuloplasty using #31 MM ring November 1996, JODY to PDA 2014 Hyperlipidemia (Inactive) E78.5 Hypertension (Inactive) I10 Mitral valve regurgitation (Inactive) I34.0 annuloplasty ring #31 mm ring 1996 Allergies amlodipine Adverse Reaction (Severe, Verified 04/14/19 06:52) Swelling of feet isosorbide Adverse Reaction (Severe, Verified 04/14/19 06:52) Swelling of feet losartan Adverse Reaction (Severe, Verified 04/14/19 06:52) Loss of Appetite Lkqnefq-Hul-Cvx Reductase Inhibitor Adverse Reaction (Verified 04/14/19 06:52) Upset Stomach Home Medications: Ambulatory Orders Medication Instructions Recorded Aspirin [Aspirin, Baby] 81 mg PO DAILY 08/25/14 proMETHazine tablet [Phenergan] 25 mg PO Q6H PRN PRN 02/28/15 rivaroxaban 20 mg tablet 20 mg PO DAILY 11/15/17 Acetaminophen [Tylenol Extra 500 mg PO PRN PRN 08/24/18 Strength] Allopurinol 100 mg PO DAILY 08/24/18 Enalapril Maleate [Vasotec] 40 mg PO BID 08/24/18 Fexofenadine HCl [Martha Allergy] 180 mg PO DAILY 08/24/18 Fluticasone 0.05% [Flonase Nasal 2 spray NASAL DAILY 08/24/18 [place]] Hydrochlorothiazide [Hctz] 25 mg PO DAILY 08/24/18 Metoprolol Tartrate [Lopressor 12.5 mg PO BID 08/24/18 (beta jenni)] Pantoprazole Sodium [Protonix] 40 mg PO DAILY 08/24/18 nitroglycerin 0.4 mg sublingual 0.4 mg SUBLINGUAL Q5-15M 12/11/18 tablet Surgical History: Surgical History (Last Updated 12/05/18 @ 14:49 by Sherry Stanford) History of mitral valve repair (Chronic) Onset Date: ~12/05/96 Z98.890 annuloplasty 31mm Mildred Austin ring 12/05/96 S/P CABG x 1 (Chronic) Onset Date: ~12/05/96 Z95.1 CABG X1- MELENDEZ graft to LAD and Mitral annuloplasty using #31 MM ring November 1996 Presence of coronary angioplasty implant and graft Onset Date: ~09/03/14 Z95.5 PTCA/JODY PDA and PTCA/JODY in distal RCA to prox Rt posterior atrioventricular artery 09/03/14 S/P PTCA (percutaneous transluminal coronary angioplasty) (Inactive) Z98.61 PTCA with JODY to PDA 09/01 S/P mitral valve repair (Inactive) Z98.890 annuloplasty ring #31 mm ring 1996 Surgical History: angioplasty, coronary bypass surgery, - Psychiatric History: No pertinent psych hx Smoking Status: Unknown if ever smoked - *Family History Maternal Family History: Family History (Last Reviewed 04/14/19 @ 10:43 by Manohar Martin MD) Father CVA (cerebral vascular accident) Mother No problems noted. History Items: No pertinent history Paternal Family History: Family History (Last Reviewed 04/14/19 @ 10:43 by Manohar Martin MD) Father CVA (cerebral vascular accident) Mother No problems noted. History Items: Stroke Sibling Family History: Family History (Last Reviewed 04/14/19 @ 10:43 by Manohar Martin MD) Father CVA (cerebral vascular accident) Mother No problems noted. History Items: Heart Disease - Congenital heart abnormality believed to be a coarctation of the aorta Review of Systems Unable to obtain accurate/complete ROS d/t: Unreliability as a result of patient being confused VTE Information - Inpt Only VTE Present on Admission: No VTE Mechan Device Prophylaxis: None VTE Pharm Prophylaxis ordered?: Yes Patient Problems: Active and Suspected Problems (Last Reviewed 04/14/19 @ 10:43 by Manohar Martin MD) Altered mental status (Acute) Accelerated hypertension (Acute) Objective: GENERAL: Resting comfortably in no apparent distress HEENT: Atraumatic; EYES; Anicteric, Normal Conjunctiva NECK; supple, normal thyroid, RESPIRATORY: Diminished to auscultation CARDIOVASCULAR: Regular S1 S2, GI: soft, normoactive bowel sounds, : No Renal angle tenderness; EXTREMITIES: No edema, no clubbing, MUSCULOSKELETAL: no muscle waisting NEURO: Sleeping but easily arousable no lateralizing signs. SKIN: No Rash PSYCH; Flat affect - Physical Exam Vitals/I&O's: Vital Signs Temp Pulse Resp BP Pulse Ox 97.9 F 76 16 157/71 H 96 04/14/19 06:45 04/14/19 09:17 04/14/19 09:17 04/14/19 09:17 04/14/19 09:17 Oxygen Delivery Method Room Air Weight: 74.5 kg Body Mass Index (BMI) 29.0 Laboratory Results 04/14/19 06:50: WBC 7.7, RBC 4.86, Hgb 14.0, Hct 43.8, MCV 90.1, MCH 28.8, MCHC 32.0, RDW Std Deviation 42.3, RDW Coeff of Dinesh 12.8, Plt Count 204, MPV 10.5, Immature Gran % (Auto) 0.600, Neut % (Auto) 68.2, Lymph % (Auto) 17.5 L, [place] % (Auto) 10.2 H, Eos % (Auto) 2.7, Baso % (Auto) 0.8, Absolute Neuts (auto) 5.3, Absolute Lymphs (auto) 1.35, Nucleated RBC % 0 04/14/19 06:50: PT 12.9, INR 1.0 04/14/19 06:50: Sodium 137, Potassium 3.6, Chloride 100, Carbon Dioxide 31.0, Anion Gap 6, BUN 22 H, Creatinine 1.09, Estim Creat Clear Calc 40.60, Est GFR (MDRD) Af Amer 83, Est GFR (MDRD) Non-Af 68, BUN/Creatinine Ratio 20.2 H, Glucose 139 H, Calcium 9.1, Troponin I 0.025 04/14/19 07:18: Specimen Type ART, Sample Site R Radial, pH 7.44, Bicarbonate Actual 31.1 H, POC Total CO2 32, Base Excess 7 H, O2 Saturation 94 L, ABG pCO2 45.4 H, ABG pO2 69 L, Van Test POS, O2 Delivery Device Room Air, Blood Gas Notified Whom ED MD, Blood Gas Notified Time 712 04/14/19 07:24: Urine Color Yellow, Urine Clarity Sl. Cloudy, Urine pH 7.0, Ur Specific [place] 1.010, Urine Protein 15 H, Urine Glucose (UA) Normal, Urine Ketones 5 H, Urine Occult Blood Negative, Urine Nitrite Negative, Urine Bilirubin Negative, Urine Urobilinogen Normal, Ur Leukocyte Esterase Negative, Urine RBC 0 SEEN, Urine WBC 0 SEEN, Ur Squamous Epith Cells 0 SEEN, Urine Bacteria RARE, Urine Mucus 0 SEEN Current Medications Sodium Chloride 1,000 ml/ N/A 1,000 mls @ 74.5 mls/hr IV .[id number] [facility] Stop: 04/15/19 08:01 Last Admin: 04/14/19 09:11 Dose: 1 ml/kg/hr, 74.5 mls/hr Documented by: Assessment/Plan All Active Problems (Last Reviewed 04/14/19 @ 10:43 by Manohar Martin MD) Altered mental status (Acute) Accelerated hypertension (Acute) Chest pressure (Acute) Chest pain (Resolved) Patient is an 83-year-old gentleman who presented with markedly elevated blood pressure and confusion 1. Acute encephalopathy do suspect hypertensive encephalopathy ~Admitted to monitored bed, plan is to treat patient medically elevated blood pressure. Also did order MRI of the brain to rule out acute CVA 2. Accelerated hypertension ~ Possibly contributing to above plan is to treat systolic blood pressure to keep SBP less than 150 3. Coronary artery disease ~ status post CABG and subsequent PTCA/JODY PDA and PTCA/JODY in distal RCA to prox Rt posterior atrioventricular artery 09/03/14 4. History of mitral valve repair ~ annuloplasty 31mm Mildred Austin ring 12/05/96 5. History of previous DVT ~patient was on rivaroxaban which was discontinued 2 weeks prior to his admission as a result of reported side effect 6. 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 DVT prophylaxis SC Lovenox Advance planning; did discuss with the patient and family regarding advanced directives as well as CODE STATUS. Did explain the various scenarios involved ( FULL CODE, DNR CCA, DNR CCA with no intubation, and DNR CC and what each meant) patient elected to be DNR CCA no intubation. Order was placed. Time spent on discussion 18 minutes. Code Visit OBSV E&M: 38564 Initial observation care L3 Procedures: 58280 Advncd Care Plan 30 Min
--- NOTE | 2019-04-14 10:12 | NURSING ---
DR SANDHU IN ROOM
--- NOTE | 2019-04-14 10:54 | MRI_ITS ---
STUDY: MRI BRAIN WITHOUT CONTRAST REASON FOR EXAM: Male, 83 years old. Nausea. Vomiting. Altered mental status. TECHNIQUE: Standardized multiplanar fat and water weighted pulse sequences were obtained. COMPARISON: CT FINDINGS: There is mild cerebral atrophy with widening of the extra-axial spaces and ventricular dilatation. There is cavum septum pellucidum. There are multiple white matter hyperintensities, distributed throughout the deep white matter tracts of the cerebral hemispheres, consistent with moderate chronic white matter ischemic changes. There is no evidence for recent intracranial ischemia or other cause of cytotoxic edema on diffusion weighted imaging (DWI). Normal T2* images of the brain without demonstrated susceptibility artifact. There is no demonstrated hemosiderin stain. Normal bilateral basal ganglia. Normal thalami. There is no extra-axial fluid accumulation. Normal flow voids within the major intracranial circulation suggesting patency by spin echo criteria. Normal sella turcica, pituitary gland, infundibular stalk, optic chiasm and hypothalamus. Normal tectal plate and pineal gland. Normal midbrain, lauryn and medulla. Normal cerebellum. Normal basal cisterns. Normal bilateral temporal bones. Normal bilateral internal auditory canals. No demonstrated orbital abnormality, within the constraints of a routine brain study. Normal visualized paranasal sinuses. Normal calvarium and skull base. Normal visualized soft tissue structures. Normal visualized upper cervical spine. MRI/Brain without Contrast IMPRESSION: Involutional changes of the brain, as described above. Electronically Signed: Néstor Molina MD at 12:39 EDT , Service support ,
[2019-04-14] MEDS: Loratadine 10 MG Tablet PO (12:44)
[2019-04-14] MEDS: Lisinopril 20 MG Tablet PO (12:44)
[2019-04-14] MEDS: Aspirin 81 MG TAB.CHEW PO (12:44)
[2019-04-14] MEDS: Pantoprazole Sodium 40 MG Tablet PO (12:44)
[2019-04-14] MEDS: hydroCHLOROthiazide 25 MG Tablet PO (12:44)
[2019-04-14] MEDS: Metoprolol Tartrate 25 MG Tablet 12.5 MG PO ×2 (12:44→22:30)
[2019-04-14] MEDS: Fluticasone 0.05% 1 SPRAY NASAL.SRY 2 SPRAY NASAL (12:45)
[2019-04-14] MEDS: Enoxaparin 40 MG/0.4 ML Syringe SC (12:45)
[2019-04-14] MEDS: Allopurinol 100 MG Tablet PO (12:45)
--- NOTE | 2019-04-14 17:58 | CPS ---
Pts. home CPAP unit setup at bedside. Water chamber filled and machine checked for proper function. Pt. understands to let RN know when he would like to go,so [employer] can help him. No oxygen is bled in at home per family.
[2019-04-15] VITALS (8 sets, daily range): BP systolic 115–138; BP diastolic 61–65; PULSE 67–74; RESP 16–18; TEMP 36.6–37; O2SAT 94–95
[2019-04-15] MEDS: Acetaminophen 325 MG Tablet 650 MG PO (02:39)
[2019-04-15] MEDS: Enoxaparin 40 MG/0.4 ML Syringe SC (05:32)
[2019-04-15 07:32] LABS: Absolute Lymphocyte Count 1.83 X10^3/uL (0.83-4.51); Absolute Neutrophil Count 4.6 X10^3/uL (2.0-7.7); Basophil# 0.05 X10^3/uL; Basophil% 0.7 % (0-1); Eosinophils% 2.7 % (0-5); Hemoglobin 12.9 g/dL (13.0-16.5); Lymphocyte # 1.83 X10^3/ul (4.0); Lymphocyte % 24.5 % (19-41); Mean Corp Hgb Conc 31.5 g/dL (32-36); Mean Corpuscular Hgb 28.2 pg (27.0-32.0); Mean Corpuscular Volume 89.7 fL (80-94); Mean Platelet Vol. 10.1 fl (6.2-12.0); Monocyte% 10.7 % (0-10); NRBC Flagged by Analyzer 0 % (0-5); Neutrophil # 4.57 X10^3/uL (2.7-7.7); Neutrophil % 61.1 % (47-70); Platelet Count 196 K/mm3 (150-450); RBC Distribution Width SD 42.6 fl (35.1-43.9); Red Blood Count 4.57 M/mm3 (4.6-6.2); White Blood Count 7.5 K/mm3 (4.4-11.0)
[2019-04-15 07:57] LABS: Anion Gap 5 (5-15); BUN 18 mg/dL (7-18); BUN/Creat Ratio 16.1 RATIO (10-20); Calcium,Total 8.9 mg/dL (8.5-10.1); Chloride 99 mmol/L (98-107); Cholesterol 159 mg/dL (200); Creatinine, Serum 1.12 mg/dL (0.70-1.30); EST Glomerular Filtration Rate 66 mL/min (>60); Est Glom Filt Rate - Afr Amer 80 mL/min (>60); Estimated Creatinine Clearance 37.92 ml/min; Glucose 118 mg/dL (74-106); High Density Lipoprotein 38 mg/dL; Potassium 3.5 mmol/L (3.5-5.1); Sodium Level 135 mmol/L (136-145); Triglycerides 82 mg/dL; Very Low Density Lipoprotein 16 mg/dL (5-40)
[2019-04-15] MEDS: Fluticasone 0.05% 1 SPRAY NASAL.SRY 2 SPRAY NASAL (09:13)
[2019-04-15] MEDS: Loratadine 10 MG Tablet PO (09:13)
[2019-04-15] MEDS: Aspirin 81 MG TAB.CHEW PO (09:13)
[2019-04-15] MEDS: Allopurinol 100 MG Tablet PO (09:13)
[2019-04-15] MEDS: hydroCHLOROthiazide 25 MG Tablet PO (09:14)
[2019-04-15] MEDS: Metoprolol Tartrate 25 MG Tablet 12.5 MG PO (09:14)
[2019-04-15] MEDS: Pantoprazole Sodium 40 MG Tablet PO (09:17)
[2019-04-15] MEDS: Lisinopril 20 MG Tablet PO (09:17)
--- NOTE | 2019-04-15 09:55 | PCM.DC ---
- Discharge Diagnoses Current Active Problems: Current Active and Chronic Problems (Last Reviewed 04/14/19 @ 10:43 by Manohar Martin MD) Altered mental status (Acute) Accelerated hypertension (Acute) You will use the following diet at home:: No restrictions Discharge Activity: Return to Normal Activity Allergies/Adverse Reactions: Allergies amlodipine Adverse Reaction (Severe, Verified 04/14/19 06:52) Swelling of feet isosorbide Adverse Reaction (Severe, Verified 04/14/19 06:52) Swelling of feet losartan Adverse Reaction (Severe, Verified 04/14/19 06:52) Loss of Appetite Ywjqphl-Emi-Qpi Reductase Inhibitor Adverse Reaction (Verified 04/14/19 06:52) Upset Stomach Medications to take at Discharge Aspirin [Aspirin, Baby] 81 mg PO QHS 08/25/14 proMETHazine tablet [Phenergan tablet] 25 mg PO Q6H PRN PRN 02/28/15 Acetaminophen [Tylenol] 500 mg PO PRN PRN 08/24/18 Allopurinol 100 mg PO DAILY 08/24/18 Enalapril Maleate [Vasotec] 20 mg PO DAILY 08/24/18 Fexofenadine HCl [Martha Allergy] 180 mg PO DAILY 08/24/18 Fluticasone 0.05% [Flonase Nasal [place]] 2 spray NASAL DAILY 08/24/18 Hydrochlorothiazide [Hctz] 25 mg PO DAILY 08/24/18 Metoprolol Tartrate [Lopressor (beta jenni)] 12.5 mg PO BID 08/24/18 Pantoprazole Sodium [Protonix] 40 mg PO DAILY 08/24/18 nitroglycerin 0.4 mg sublingual tablet 0.4 mg SUBLINGUAL Q5-15M 12/11/18 Diazepam [Valium] 5 mg PO DAILY PRN 04/14/19 Primary Care Physician: David Gustafson DO [Primary Care Provider] - Please follow up with your Primary Care Physician in: in 3-5 days Test Results: Test results from this visit will be discussed in further detail at your follow-up appointment, if applicable. Proposed Discharge Date: 04/15/19
--- NOTE | 2019-04-15 09:57 | DS.PCM_ITS ---
Discharge Date and Diagnosis - Problem List Patient Problems: Active and Suspected Problems (Last Reviewed 04/14/19 @ 10:43 by Manohar Martin MD) Altered mental status (Acute) Accelerated hypertension (Acute) Date of Admission: 04/14/19 Date of Discharge: 04/15/19 - Primary Discharge Diagnosis Active and Suspected Problems (Last Reviewed 04/14/19 @ 10:43 by Manohar Martin MD) Altered mental status (Acute) Accelerated hypertension (Acute) - Secondary Discharge Diagnosis Chronic Problems (Last Reviewed 04/14/19 @ 10:43 by Manohar Martin MD) History of mitral valve repair (Chronic ~12/05/96) annuloplasty 31mm Mildred Austin ring 12/05/96 Presence of stent in coronary artery (Chronic ~09/03/14) PTCA/JODY PDA and PTCA/JODY in distal RCA to prox Rt posterior atrioventricular artery 09/03/14 Pure hypercholesterolemia (Chronic) Essential hypertension (Chronic) Non-rheumatic mitral regurgitation (Chronic) 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) Encounter for long-term current use of high risk medication (Chronic) Carotid bruit (Chronic) Palpitations (Chronic) S/P CABG x 1 (Chronic ~12/05/96) CABG X1- MELENDEZ graft to LAD and Mitral annuloplasty using #31 MM ring November 1996 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 No acute process identified. Electronically Signed: Casandra Hernandez MD at 8:01 EDT , Service support , Head/Neck CTA 04/14/19 07:57 IMPRESSION: Atherosclerotic plaque. No high-grade stenosis or occlusion. Electronically Signed: Néstor Molina MD at 9:28 EDT , Service support , Brain MRI 04/14/19 10:54 IMPRESSION: Involutional changes of the brain, as described above. Electronically Signed: Néstor Molina MD at 12:39 EDT , Service support , Operations: None Summary of Care Provided: Patient is an 83-year-old gentleman who presented with markedly elevated blood pressure and confusion 1. Acute encephalopathy do suspect hypertensive encephalopathy ~Admitted to monitored bed, plan is to treat patient medically elevated blood pressure. Also did order MRI of the brain to rule out acute CVA MRI came back negative. 2. Accelerated hypertension ~ Possibly contributing to above plan is to treat systolic blood pressure to keep SBP less than 150 Patient blood pressure had stabilized at the time of discharge. 3. Coronary artery disease ~ status post CABG and subsequent PTCA/JODY PDA and PTCA/JODY in distal RCA to prox Rt posterior atrioventricular artery 09/03/14 4. History of mitral valve repair ~ annuloplasty 31mm Mildred Austin ring 12/05/96 5. History of previous DVT ~patient was on rivaroxaban which was discontinued 2 weeks prior to his admission as a result of reported side effect 6. 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 DVT prophylaxis SC Lovenox Patient Problems: Active and Suspected Problems (Last Reviewed 04/14/19 @ 10:43 by Manohar Martin MD) Altered mental status (Acute) Accelerated hypertension (Acute) Objective: GENERAL: cooperative HEENT: Atraumatic; EYES; Anicteric, Normal Conjunctiva NECK; supple, normal thyroid, RESPIRATORY: Diminished to auscultation CARDIOVASCULAR: Regular S1 S2, GI: soft, normoactive bowel sounds, : No Renal angle tenderness; EXTREMITIES: No edema, no clubbing, MUSCULOSKELETAL: no muscle waisting NEURO: Sleeping but easily arousable no lateralizing signs. SKIN: oily PSYCH; Flat affect - Physical Exam Vitals/I&O's: Vital Signs Temp Pulse Resp BP Pulse Ox 98.6 F 72 16 115/61 94 04/15/19 09:02 04/15/19 09:14 04/15/19 09:02 04/15/19 09:02 04/15/19 09:37 Oxygen Delivery Method Room Air Weight: 71.8 kg Body Mass Index (BMI) 28.9 Intake and Output for Last 24 Hours 04/13/19 04/14/19 04/15/19 23:59 23:59 23:59 Intake Total 375.34 / 375.34 Output Total 150 / 150 Balance 375.34 / 375.34 -150 / -150 Laboratory Results 04/14/19 11:14: Troponin I 0.034 04/14/19 14:08: Troponin I 0.035 04/15/19 07:20: WBC 7.5, RBC 4.57 L, Hgb 12.9 L, Hct 41.0, MCV 89.7, MCH 28.2, MCHC 31.5 L, RDW Std Deviation 42.6, RDW Coeff of Dinesh 13.0, Plt Count 196, MPV 10.1, Immature Gran % (Auto) 0.300, Neut % (Auto) 61.1, Lymph % (Auto) 24.5, Saline % (Auto) 10.7 H, Eos % (Auto) 2.7, Baso % (Auto) 0.7, Absolute Neuts (auto) 4.6, Absolute Lymphs (auto) 1.83, Nucleated RBC % 0 04/15/19 07:20: Sodium 135 L, Potassium 3.5, Chloride 99, Carbon Dioxide 31.0, Anion Gap 5, BUN 18, Creatinine 1.12, Estim Creat Clear Calc 37.92, Est GFR (MDRD) Af Amer 80, Est GFR (MDRD) Non-Af 66, BUN/Creatinine Ratio 16.1, Glucose 118 H, Calcium 8.9, Triglycerides 82, Cholesterol 159, LDL Cholesterol 105, VLDL Cholesterol 16, HDL Cholesterol 38 L Current Medications Acetaminophen (Tylenol) 650 mg PO Q6H PRN PRN PRN Reason: Pain Score 1-3/Temp > 100.7 F Last Admin: 04/15/19 02:39 Dose: 650 mg Documented by: Al Hydroxide/Mg Hydroxide (Mylanta Ii) 30 ml PO Q6H PRN PRN PRN Reason: Gastric Burning Albuterol Sulfate (Ventolin Aerosols) 2.5 mg INHALATION Q2H PRN PRN PRN Reason: SOB/Wheezing [facility]oprim) [facility] Last Admin: 04/15/19 09:13 Dose: 100 mg Documented by: Aspirin (Aspirin, Baby) [facility] Last Admin: 04/15/19 09:13 Dose: 81 mg Documented by: Enoxaparin Sodium (Lovenox) 40 mg SC DAILY@0600 [facility] Last Admin: 04/15/19 05:32 Dose: 40 mg Documented by: Fluticasone Propionate (Flonase Nasal [place]) 2 spray NASAL DAILY [facility] Last Admin: 04/15/19 09:13 Dose: 2 spray Documented by: Hydrochlorothiazide (Hctz) 25 mg PO DAILY [facility] Last Admin: 04/15/19 09:14 Dose: 25 mg Documented by: Lisinopril (Zestril) 20 mg PO DAILY [facility] Last Admin: 04/15/19 09:17 Dose: 20 mg Documented by: Loratadine (Claritin) 10 mg PO DAILY [facility] Last Admin: 04/15/19 09:13 Dose: 10 mg Documented by: Magnesium Hydroxide (Milk Of Magnesia) 30 ml PO DAILY PRN PRN PRN Reason: Constipation Melatonin (Melatonin) 3 mg PO QHS PRN PRN PRN Reason: INSOMNIA Metoprolol Tartrate (Lopressor (Beta Leonid)) 12.5 mg PO BID [facility] Last Admin: 04/15/19 09:14 Dose: 12.5 mg Documented by: Morphine Sulfate () 4 mg IV Q3H PRN PRN PRN Reason: Pain Score 6-10/10 Nitroglycerin (Nitrostat) 0.4 mg SUBLINGUAL Q5M PRN PRN Reason: .CHEST PAIN Ondansetron HCl (Zofran) 4 mg IV Q8H PRN PRN PRN Reason: NAUSEA/VOMITING Last Admin: 04/14/19 19:01 Dose: 4 mg Documented by: Oxycodone HCl (Oxyir) 5 mg PO Q4H PRN PRN PRN Reason: Pain Score 4-5/10 Pantoprazole Sodium (Protonix) 40 mg PO DAILY [facility] Last Admin: 04/15/19 09:17 Dose: 40 mg Documented by: Promethazine HCl (Phenergan Tablet) 25 mg PO Q6H PRN PRN PRN Reason: NAUSEA Sodium Chloride () 10 - 40 ml IV UD PRN PRN Reason: SALINE FLUSH Discharge Diet: No Restrictions Discharge Activity: Return to Normal Activity Home Medications: Medications to take at Discharge Aspirin [Aspirin, Baby] 81 mg PO QHS 08/25/14 proMETHazine tablet [Phenergan tablet] 25 mg PO Q6H PRN PRN 02/28/15 Acetaminophen [Tylenol] 500 mg PO PRN PRN 08/24/18 Allopurinol 100 mg PO DAILY 08/24/18 Enalapril Maleate [Vasotec] 20 mg PO DAILY 08/24/18 Fexofenadine HCl [Amrtha Allergy] 180 mg PO DAILY 08/24/18 Fluticasone 0.05% [Flonase Nasal [place]] 2 spray NASAL DAILY 08/24/18 Hydrochlorothiazide [Hctz] 25 mg PO DAILY 08/24/18 Metoprolol Tartrate [Lopressor (beta leonid)] 12.5 mg PO BID 08/24/18 Pantoprazole Sodium [Protonix] 40 mg PO DAILY 08/24/18 nitroglycerin 0.4 mg sublingual tablet 0.4 mg SUBLINGUAL Q5-15M 12/11/18 Diazepam [Valium] 5 mg PO DAILY PRN 04/14/19 Primary Care Physician: David Gustafson DO [Primary Care Provider] - Please follow up with your Primary Care Physician in: in 3-5 days Disposition: Home Minutes spent on discharge:: 35 Patient Condition:: Stable Medical Necessity - Tobacco Use Smoking Status: Never smoker Meaningful Use Info Meaningful Use Diagnoses (Choose all that apply): None applicable Code Visit OBSV E&M: 43225 Observation care discharge
[2019-04-15] MEDS: proMETHazine 25 MG Tablet PO (12:26)
== END 2019-04-15 09:56 | disposition home or self-care (01) ==
LOC: ED 07:22 → PCU 10:13
PROVIDERS: Admitting Provider Internal Medicine; Emergency Provider Emergency Medicine; Family Provider Family Medicine; PCP Family Medicine; Referring Provider Internal Medicine; Visit Provider Internal Medicine
DX: G93.40 Encephalopathy, unspecified (principal); I10 Essential (primary) hypertension; E11.9 Type 2 diabetes mellitus without complications; I25.10 Atherosclerotic heart disease of native coronary artery without angina pectoris; R21 Rash and other nonspecific skin eruption; R11.2 Nausea with vomiting, unspecified; E78.00 Pure hypercholesterolemia, unspecified; M19.90 Unspecified osteoarthritis, unspecified site; R94.31 Abnormal electrocardiogram [ECG] [EKG]; Z79.899 Other long term (current) drug therapy; Z79.82 Long term (current) use of aspirin; Z86.718 Personal history of other venous thrombosis and embolism; Z95.1 Presence of aortocoronary bypass graft; Z86.73 Personal history of transient ischemic attack (TIA), and cerebral infarction without residual deficits; Z79.51 Long term (current) use of inhaled steroids
CPT/HCPCS: 36415; 36600; 70450; 70496; 70498; 70551; 71045; 80048; 80061; 81001; 82803; 84484; 85025; 85610; 93005; 94762; 96372; 96374; 96375; 96376; 97161; 97165; 99218; 99285; J7030; Q9967; A4216; G0378; J2405

== ENCOUNTER → 2019-05-09 13:36 | Outpatient (CLI) | payer MEDICARE, OTHER, SELFPAY ==
[2019-04-14 13:13] VITALS: BMI 28.9
[2019-05-09 14:30] LABS: Absolute Lymphocyte Count 1.38 X10^3/uL (0.83-4.51); Absolute Neutrophil Count 2.9 X10^3/uL (2.0-7.7); Basophil# 0.07 X10^3/uL; Basophil% 1.4 % (0-1); Eosinophil# 0.19 X10^3/uL; Eosinophils% 3.7 % (0-5); Hematocrit 40.8 % (40-54); Hemoglobin 12.9 g/dL (13.0-16.5); Lymphocyte # 1.38 X10^3/ul (4.0); Lymphocyte % 26.9 % (19-41); Mean Corp Hgb Conc 31.6 g/dL (32-36); Mean Corpuscular Hgb 28.9 pg (27.0-32.0); Mean Corpuscular Volume 91.3 fL (80-94); Mean Platelet Vol. 10.4 fl (6.2-12.0); Monocyte# 0.59 X10^3/uL; Monocyte% 11.5 % (0-10); NRBC Flagged by Analyzer 0 % (0-5); Neutrophil # 2.88 X10^3/uL (2.7-7.7); Neutrophil % 56.1 % (47-70); Platelet Count 192 K/mm3 (150-450); RBC Distribution Width CV 13.2 % (11.6-14.6); RBC Distribution Width SD 43.7 fl (35.1-43.9); Red Blood Count 4.47 M/mm3 (4.6-6.2); White Blood Count 5.1 K/mm3 (4.4-11.0)
[2019-05-09 14:46] LABS: Hemoglobin A1c 6.1 % (4.2-6.3)
[2019-05-09 14:55] LABS: ALB/GLOB Ratio 0.9 RATIO (0.9-2.4); AST(SGOT) 21 U/L (15-37); Alanine Aminotransfer ALT/SGPT 29 U/L (16-61); Albumin, Serum 3.5 g/dL (3.2-5.0); Alkaline Phosphatase 40 U/L (45-117); Anion Gap 5 (5-15); BUN 26 mg/dL (7-18); BUN/Creat Ratio 24.1 RATIO (10-20); Calcium,Total 9.3 mg/dL (8.5-10.1); Chloride 104 mmol/L (98-107); Cholesterol 178 mg/dL (200); Creatinine, Serum 1.08 mg/dL (0.70-1.30); EST Glomerular Filtration Rate 69 mL/min (>60); Est Glom Filt Rate - Afr Amer 84 mL/min (>60); Ferritin 57 ng/mL (26-388); Globulin 3.7 g/dL (2.2-4.2); Glucose 110 mg/dL (74-106); High Density Lipoprotein 40 mg/dL; Iron 101 ug/dL (65-175); Potassium 3.8 mmol/L (3.5-5.1); Protein, Total 7.2 g/dL (6.4-8.2); Sodium Level 140 mmol/L (136-145); Triglycerides 92 mg/dL; Uric Acid 7.2 mg/dL (3.5-7.2); Very Low Density Lipoprotein 18 mg/dL (5-40)
== END ==
PROVIDERS: Family Provider Family Medicine; PCP Family Medicine; Referring Provider Family Medicine; Visit Provider Family Medicine
DX: E11.59 Type 2 diabetes mellitus with other circulatory complications (principal); I10 Essential (primary) hypertension; D64.9 Anemia, unspecified; I25.10 Atherosclerotic heart disease of native coronary artery without angina pectoris; M10.9 Gout, unspecified
CPT/HCPCS: 36415; 80053; 80061; 82728; 83036; 83540; 84550; 85025

== ENCOUNTER → 2019-05-11 13:33 | Outpatient (CLI) | payer MEDICARE, OTHER, SELFPAY ==
[2019-04-14 13:13] VITALS: BMI 28.9
[2019-05-11 15:53] LABS: Insulin 12.5 mU/L (2.6-37.6)
== END ==
PROVIDERS: Family Provider Family Medicine; PCP Family Medicine; Referring Provider Family Medicine; Visit Provider Family Medicine
DX: E11.59 Type 2 diabetes mellitus with other circulatory complications (principal); R21 Rash and other nonspecific skin eruption
CPT/HCPCS: 36415; 83525

== ENCOUNTER → 2019-05-25 13:28 | Outpatient (CLI) | payer MEDICARE, OTHER, SELFPAY ==
[2019-04-14 13:13] VITALS: BMI 28.9
== END ==
LOC: LAB.FUTURE 06-06 09:43 → BFHLAB 12-04 13:05
PROVIDERS: Family Provider Family Medicine; PCP Family Medicine; Referring Provider Family Medicine; Visit Provider Family Medicine
DX: E11.59 Type 2 diabetes mellitus with other circulatory complications (principal); R21 Rash and other nonspecific skin eruption

== ENCOUNTER → 2019-12-20 16:07 | Outpatient (CLI) | payer MEDICARE, OTHER, SELFPAY ==
[2019-05-31 14:40] VITALS: BMI 28.0
[2019-12-20 17:55] LABS: Absolute Lymphocyte Count 1.15 X10^3/uL (0.83-4.51); Absolute Neutrophil Count 4.2 X10^3/uL (2.0-7.7); Basophil# 0.06 X10^3/uL; Basophil% 0.9 % (0-1); Eosinophil# 0.31 X10^3/uL; Eosinophils% 4.8 % (0-5); Hematocrit 41.2 % (40-54); Hemoglobin 12.7 g/dL (13.0-16.5); Lymphocyte # 1.15 X10^3/ul (4.0); Lymphocyte % 17.9 % (19-41); Mean Corp Hgb Conc 30.8 g/dL (32-36); Mean Corpuscular Hgb 27.3 pg (27.0-32.0); Mean Corpuscular Volume 88.6 fL (80-94); Monocyte% 10.9 % (0-10); NRBC Flagged by Analyzer 0 % (0-5); Neutrophil # 4.17 X10^3/uL (2.7-7.7); Platelet Count 210 K/mm3 (150-450); RBC Distribution Width CV 13.7 % (11.6-14.6); RBC Distribution Width SD 44.1 fl (35.1-43.9); Red Blood Count 4.65 M/mm3 (4.6-6.2); White Blood Count 6.4 K/mm3 (4.4-11.0)
[2019-12-20 18:54] LABS: Vitamin D,25 Hydroxy 20.5 ng/mL
[2019-12-20 19:02] LABS: ALB/GLOB Ratio 0.8 RATIO (0.9-2.4); AST(SGOT) 15 U/L (15-37); Alanine Aminotransfer ALT/SGPT 22 U/L (16-61); Albumin, Serum 3.3 g/dL (3.2-5.0); Alkaline Phosphatase 47 U/L (45-117); Anion Gap 7 (5-15); BUN 18 mg/dL (7-18); BUN/Creat Ratio 19.7 RATIO (10-20); Chloride 98 mmol/L (98-107); Cholesterol 182 mg/dL (200); Creatinine, Serum 0.91 mg/dL (0.70-1.30); EST Glomerular Filtration Rate 84 mL/min (>60); Est Glom Filt Rate - Afr Amer 101 mL/min (>60); Globulin 3.9 g/dL (2.2-4.2); Glucose 94 mg/dL (74-106); High Density Lipoprotein 38 mg/dL; Potassium 3.4 mmol/L (3.5-5.1); Protein, Total 7.2 g/dL (6.4-8.2); Sodium Level 138 mmol/L (136-145); Thyroid Stim Hormone (TSH) 1.35 uIU/mL (0.358-3.74); Triglycerides 155 mg/dL; Very Low Density Lipoprotein 31 mg/dL (5-40)
== END ==
PROVIDERS: Visit Provider Family Medicine Geriatric Medicine
DX: E55.9 Vitamin D deficiency, unspecified (principal); E78.5 Hyperlipidemia, unspecified; I10 Essential (primary) hypertension
CPT/HCPCS: 36415; 80053; 80061; 82306; 84443; 85025

== ENCOUNTER → 2020-01-07 14:26 | Outpatient (CLI) | payer MEDICARE, OTHER, SELFPAY ==
[2019-05-31 14:40] VITALS: BMI 28.0
[2020-01-07 17:18] LABS: Anion Gap 5 (5-15); BUN 20 mg/dL (7-18); BUN/Creat Ratio 22.7 RATIO (10-20); Chloride 105 mmol/L (98-107); Creatinine, Serum 0.88 mg/dL (0.70-1.30); EST Glomerular Filtration Rate 87 mL/min (>60); Est Glom Filt Rate - Afr Amer 105 mL/min (>60); Glucose 126 mg/dL (74-106); Potassium 3.8 mmol/L (3.5-5.1); Sodium Level 142 mmol/L (136-145)
== END ==
PROVIDERS: Visit Provider Family Medicine Geriatric Medicine
DX: E87.6 Hypokalemia (principal)
CPT/HCPCS: 36415; 80048

== ENCOUNTER → 2020-03-25 15:54 | Outpatient (CLI) | payer MEDICARE, OTHER, SELFPAY ==
[2020-03-03 15:06] VITALS: BMI 27.5
[2020-03-25 16:37] LABS: Absolute Lymphocyte Count 1.33 X10^3/uL (0.83-4.51); Absolute Neutrophil Count 5.6 X10^3/uL (2.0-7.7); Basophil# 0.08 X10^3/uL; Basophil% 0.9 % (0-1); Eosinophil# 0.63 X10^3/uL; Eosinophils% 7.3 % (0-5); Hematocrit 43.7 % (40-54); Hemoglobin 13.9 g/dL (13.0-16.5); Lymphocyte # 1.33 X10^3/ul (4.0); Lymphocyte % 15.4 % (19-41); Mean Corp Hgb Conc 31.8 g/dL (32-36); Mean Corpuscular Hgb 27.7 pg (27.0-32.0); Mean Corpuscular Volume 87.2 fL (80-94); Mean Platelet Vol. 10.1 fl (6.2-12.0); Monocyte# 0.88 X10^3/uL; Monocyte% 10.2 % (0-10); NRBC Flagged by Analyzer 0 % (0-5); Neutrophil # 5.61 X10^3/uL (2.7-7.7); Neutrophil % 65.2 % (47-70); Platelet Count 217 K/mm3 (150-450); RBC Distribution Width CV 13.3 % (11.6-14.6); RBC Distribution Width SD 42.3 fl (35.1-43.9); Red Blood Count 5.01 M/mm3 (4.6-6.2); White Blood Count 8.6 K/mm3 (4.4-11.0)
[2020-03-25 17:03] LABS: ALB/GLOB Ratio 0.8 RATIO (0.9-2.4); AST(SGOT) 17 U/L (15-37); Alanine Aminotransfer ALT/SGPT 17 U/L (16-61); Albumin, Serum 3.5 g/dL (3.2-5.0); Alkaline Phosphatase 48 U/L (45-117); Anion Gap 5 (5-15); BUN 14 mg/dL (7-18); BUN/Creat Ratio 15.1 RATIO (10-20); Calcium,Total 9.1 mg/dL (8.5-10.1); Chloride 92 mmol/L (98-107); Creatinine, Serum 0.93 mg/dL (0.70-1.30); EST Glomerular Filtration Rate 82 mL/min (>60); Est Glom Filt Rate - Afr Amer 99 mL/min (>60); Globulin 4.3 g/dL (2.2-4.2); Glucose 142 mg/dL (74-106); Potassium 3.4 mmol/L (3.5-5.1); Protein, Total 7.8 g/dL (6.4-8.2); Sodium Level 129 mmol/L (136-145)
[2020-03-26 08:22] LABS: Vitamin D,25 Hydroxy 16.3 ng/mL
== END ==
PROVIDERS: Visit Provider Family Medicine Geriatric Medicine
DX: E55.9 Vitamin D deficiency, unspecified (principal); I10 Essential (primary) hypertension
CPT/HCPCS: 36415; 80053; 82306; 84443; 85025

== ENCOUNTER → 2020-04-02 10:30 | Outpatient (CLI) | payer MEDICARE, OTHER, SELFPAY ==
[2020-03-03 15:06] VITALS: BMI 27.5
--- NOTE | 2020-04-02 10:33 | US_ITS ---
STUDY: ABDOMINAL ULTRASOUND - RIGHT UPPER QUADRANT REASON FOR VISIT: Male, 84 years old ABD PAIN TECHNIQUE: Ultrasound evaluation of the right upper quadrant was performed with real-time and static valencia-scale imaging. TECHNICAL QUALITY: Adequate. COMPARISON: 07/09/2015 FINDINGS: Liver: The liver measures 14.8 cm. There is increased echogenicity consistent with fatty infiltration. The bile ducts are within normal limits. There is hepatic color flow. The direction of portal flow is hepatopetal. There is no demonstrated mass lesion. Gallbladder: Normal distended gallbladder. The gallbladder wall measures 2 mm. There is a negative sonographic Potter''s sign. There is no pericholecystic fluid. There are gallbladder polyps. Common Bile Duct (C.B.D.): The common bile duct measures 5 mm. Pancreas: There is nonvisualization of the pancreas.. Right Kidney: Normal size of the right kidney. The right kidney measures 10.6 cm. Normal renal cortex. The right cortex measures 1.6 cm. There is no demonstrated renal mass or cyst. There is no right hydronephrosis. US/Abdomen Limited IMPRESSION: 1. Cholesterolosis. 2. Fatty infiltration liver. Electronically Signed: Ivan Hu MD at 15:02 EDT Tel , Service support ,
[2020-04-02 15:14] LABS: Urine Sodium 73 mmol/L (Not Establ.)
[2020-04-02 15:31] LABS: Anion Gap 6 (5-15); BUN 19 mg/dL (7-18); BUN/Creat Ratio 19.3 RATIO (10-20); Chloride 94 mmol/L (98-107); Creatinine, Serum 0.99 mg/dL (0.70-1.30); EST Glomerular Filtration Rate 77 mL/min (>60); Est Glom Filt Rate - Afr Amer 93 mL/min (>60); Glucose 177 mg/dL (74-106); Potassium 3.9 mmol/L (3.5-5.1); Sodium Level 130 mmol/L (136-145)
[2020-04-02 20:53] LABS: Osmolality, Serum 290 mOsm/KG (280-301)
[2020-04-02 20:54] LABS: Osmolality, Urine 298 mOsm/KG
== END ==
PROVIDERS: PCP Family Medicine Geriatric Medicine; Referring Provider Family Medicine Geriatric Medicine; Visit Provider Family Medicine Geriatric Medicine
DX: R10.9 Unspecified abdominal pain (principal)
CPT/HCPCS: 36415; 76705; 80048; 83930; 83935; 84300

== ENCOUNTER → 2020-04-21 07:52 | Outpatient (CLI) | payer MEDICARE, OTHER, SELFPAY ==
[2020-03-03 15:06] VITALS: BMI 27.5
--- NOTE | 2020-04-21 07:55 | US_ITS ---
INDICATION: Fatty infiltration of the liver. COMPARISON: None. TECHNIQUE: Grayscale imaging was performed of the right upper abdominal quadrant. Hepatic elastography was then performed. Liver stiffness was sampled and shear wave measurements were obtained utilizing a [employer] RS 85 ultrasound machine using a CA 1-7 probe following the U guidelines. 3000 measurements were obtained. The IQR/M. was 8% suggesting a quality data set. METAVIR score was calculated. FINDINGS: ELASTOGRAPHY: Mean: 1.5 m/s Median: 1.5 m/s Standard Deviation: kPa: 6.3 US/Elastography Parenchyma/Organ IMPRESSION: 1. Increased hepatic echotexture in keeping with steatosis vs diffuse liver disease. 2. METAVIR score is 6.3, in keeping with liver fibrosis stage of F2-F 3. Electronically Signed: Scar Peña, at 12:33 EST , Service support ,
== END ==
PROVIDERS: PCP Family Medicine Geriatric Medicine; Referring Provider Family Medicine Geriatric Medicine; Visit Provider Family Medicine Geriatric Medicine
DX: K76.0 Fatty (change of) liver, not elsewhere classified (principal)
CPT/HCPCS: 76981

== ENCOUNTER → 2020-06-06 12:40 | Outpatient (CLI) | payer MEDICARE, OTHER, SELFPAY ==
[2020-03-03 15:06] VITALS: BMI 27.5
--- NOTE | 2020-06-06 13:00 | RAD_ITS ---
STUDY: X-RAY - LEFT FOOT CLINICAL: Male, 84 years old. left foot pain, edema TECHNIQUE: 3 view(s) of the foot. COMPARISON: None. FINDINGS: Normal talus, calcaneus, and tarsal bones. 1 cm type II accessory navicular bone. Small plantar posterior calcaneal enthesophytes. Normal visualized subtalar, talonavicular, calcaneocuboid, tarsal and tarsometatarsal articulations. Normal metatarsi. Normal metatarsophalangeal joint of the great toe. Normal tibial and fibular sesamoid bones. Normal interphalangeal joint of the great toe. Normal phalanges of the great toe. Normal second through fifth metatarsophalangeal joints. Normal interphalangeal joints and phalanges of the lesser toes. The soft tissue structures are unremarkable. RAD/Foot min 3 Views IMPRESSION: Normal x-ray examination of the foot. Electronically Signed: Ivan Hu MD at 16:55 EST Tel , Service support ,
--- NOTE | 2020-06-06 13:00 | VDLE_ITS ---
Reason For Study: Edema Procedure LEFT This is a venous duplex using B-mode, color GSV is normal. flow and spectral Doppler. CFV is compressible, spontaneous, phasic, Exam performed in department. competent, and demonstrates normal A preliminary report was called and/or faxed augmentation. to [place]. FV is compressible, spontaneous, phasic, competent and demonstrates normal augmentation. POP V is compressible, spontaneous, phasic, competent and demonstrates normal augmentation. T/P Trunk is compressible. PTV is compressible. LT PerV is compressible. Interpretation Summary Deep veins of the left lower extremity are patent and compressible segmentally. There is no evidence of left lower extremity deep vein thrombosis. Valvular competence appears intact within the proximal deep venous system on the left . The left great saphenous vein appears patent and compressible segmentally. Ordering Physician: Johnson Tavarez Referring Physician: Johnson Tavarez Chi Performed By: Pattie Oreilly RVT and Student
[2020-06-06 13:22] LABS: Absolute Lymphocyte Count 1.29 X10^3/uL (0.83-4.51); Absolute Neutrophil Count 4.9 X10^3/uL (2.0-7.7); Basophil% 1.3 % (0-1); Hematocrit 43.4 % (40-54); Hemoglobin 13.2 g/dL (13.0-16.5); Lymphocyte # 1.29 X10^3/ul (4.0); Lymphocyte % 16.1 % (19-41); Mean Corp Hgb Conc 30.4 g/dL (32-36); Mean Corpuscular Hgb 26.8 pg (27.0-32.0); Mean Corpuscular Volume 88.2 fL (80-94); Mean Platelet Vol. 9.7 fl (6.2-12.0); Monocyte# 0.87 X10^3/uL; Monocyte% 10.9 % (0-10); NRBC Flagged by Analyzer 0 % (0-5); Neutrophil # 4.88 X10^3/uL (2.7-7.7); Neutrophil % 60.9 % (47-70); Platelet Count 244 K/mm3 (150-450); RBC Distribution Width CV 12.8 % (11.6-14.6); RBC Distribution Width SD 41.9 fl (35.1-43.9); Red Blood Count 4.92 M/mm3 (4.6-6.2)
[2020-06-06 13:27] LABS: Erythrocyte Sedimentation Rate 55 mm/hr (0-20)
[2020-06-06 13:37] LABS: Anion Gap 4 (5-15); BUN 16 mg/dL (7-18); BUN/Creat Ratio 16.3 RATIO (10-20); Calcium,Total 9.3 mg/dL (8.5-10.1); Chloride 99 mmol/L (98-107); Creatinine, Serum 0.98 mg/dL (0.70-1.30); EST Glomerular Filtration Rate 77 mL/min (>60); Est Glom Filt Rate - Afr Amer 93 mL/min (>60); Glucose 145 mg/dL (74-106); Potassium 3.3 mmol/L (3.5-5.1); Sodium Level 135 mmol/L (136-145); Uric Acid 8.4 mg/dL (3.5-7.2)
== END ==
PROVIDERS: PCP Family Medicine Geriatric Medicine; Referring Provider Family Medicine Geriatric Medicine; Visit Provider Family Medicine Geriatric Medicine
DX: M10.9 Gout, unspecified (principal); R60.0 Localized edema; M79.672 Pain in left foot
CPT/HCPCS: 36415; 73630; 80048; 84550; 85025; 85652; 86140; 93971

== ENCOUNTER → 2020-06-18 14:28 | Outpatient (CLI) | payer MEDICARE, OTHER, SELFPAY ==
[2020-03-03 15:06] VITALS: BMI 27.5
[2020-06-18 15:45] LABS: Anion Gap 4 (5-15); BUN 24 mg/dL (7-18); BUN/Creat Ratio 22.4 RATIO (10-20); Calcium,Total 9.1 mg/dL (8.5-10.1); Chloride 101 mmol/L (98-107); Creatinine, Serum 1.07 mg/dL (0.70-1.30); EST Glomerular Filtration Rate 70 mL/min (>60); Est Glom Filt Rate - Afr Amer 84 mL/min (>60); Glucose 210 mg/dL (74-106); Potassium 3.7 mmol/L (3.5-5.1); Sodium Level 136 mmol/L (136-145)
== END ==
PROVIDERS: PCP Family Medicine Geriatric Medicine; Visit Provider Family Medicine Geriatric Medicine
DX: E87.6 Hypokalemia (principal)
CPT/HCPCS: 36415; 80048

== ENCOUNTER → 2020-06-23 13:46 | Outpatient (CLI) | payer MEDICARE, OTHER, SELFPAY ==
[2020-03-03 15:06] VITALS: BMI 27.5
--- NOTE | 2020-06-23 14:35 | RAD_ITS ---
STUDY: X-RAY - RIGHT KNEE REASON FOR EXAM: Male, 85 years old. PAIN, NO INJURY TECHNIQUE: 4 view(s) of the knee. COMPARISON: None. FINDINGS: Normal visualized distal femur. Normal visualized proximal tibia and fibula. Normal proximal tibiofibular articulation. There is severe degenerative arthrosis of the medial femorotibial compartment with severe joint space narrowing. There is mild degenerative arthrosis of the lateral femorotibial compartment. There is mild degenerative arthrosis of the patellofemoral articulation. 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 The soft tissue structures are unremarkable. RAD/Knee 4 or More Views IMPRESSION: CPPD with severe arthrosis. Electronically Signed: Ivan Hu MD at 15:02 EST Tel , Service support ,
[2020-06-23 16:38] LABS: Absolute Lymphocyte Count 2.01 X10^3/uL (0.83-4.51); Absolute Neutrophil Count 8.3 X10^3/uL (2.0-7.7); Basophil# 0.11 X10^3/uL; Basophil% 0.9 % (0-1); Eosinophil# 0.83 X10^3/uL; Eosinophils% 6.7 % (0-5); Hematocrit 42.3 % (40-54); Hemoglobin 13.5 g/dL (13.0-16.5); Lymphocyte # 2.01 X10^3/ul (4.0); Lymphocyte % 16.2 % (19-41); Mean Corp Hgb Conc 31.9 g/dL (32-36); Mean Corpuscular Volume 90.8 fL (80-94); Mean Platelet Vol. 11.2 fl (6.2-12.0); Monocyte# 1.01 X10^3/uL; Monocyte% 8.1 % (0-10); NRBC Flagged by Analyzer 0 % (0-5); Platelet Count 161 K/mm3 (150-450); RBC Distribution Width CV 14.6 % (11.6-14.6); RBC Distribution Width SD 45.1 fl (35.1-43.9); Red Blood Count 4.66 M/mm3 (4.6-6.2); White Blood Count 12.4 K/mm3 (4.4-11.0)
[2020-06-23 16:56] LABS: Vitamin D,25 Hydroxy 11.5 ng/mL
[2020-06-23 17:04] LABS: ALB/GLOB Ratio 0.9 RATIO (0.9-2.4); AST(SGOT) 9 U/L (15-37); Alanine Aminotransfer ALT/SGPT 14 U/L (16-61); Albumin, Serum 3.4 g/dL (3.2-5.0); Alkaline Phosphatase 49 U/L (45-117); Anion Gap 5 (5-15); BUN 24 mg/dL (7-18); BUN/Creat Ratio 20.7 RATIO (10-20); Chloride 101 mmol/L (98-107); Creatinine, Serum 1.16 mg/dL (0.70-1.30); EST Glomerular Filtration Rate 63 mL/min (>60); Est Glom Filt Rate - Afr Amer 77 mL/min (>60); Globulin 3.8 g/dL (2.2-4.2); Glucose 161 mg/dL (74-106); Protein, Total 7.2 g/dL (6.4-8.2); Sodium Level 138 mmol/L (136-145); Thyroid Stim Hormone (TSH) 1.45 uIU/mL (0.358-3.74)
== END ==
LOC: POLAB3 13:49 → RAD 14:34
PROVIDERS: PCP Family Medicine Geriatric Medicine; Referring Provider Family Medicine Geriatric Medicine; Visit Provider Family Medicine Geriatric Medicine
DX: M17.11 Unilateral primary osteoarthritis, right knee (principal); I10 Essential (primary) hypertension; M10.9 Gout, unspecified; E55.9 Vitamin D deficiency, unspecified
CPT/HCPCS: 36415; 73564; 80053; 82306; 84443; 84550; 85025

== ENCOUNTER 2020-08-03 17:33 | Inpatient (IN) | payer MEDICARE, OTHER, SELFPAY ==
[2020-03-03 15:06] VITALS: BMI 27.5
[2020-08-03] VITALS (9 sets, daily range): BP systolic 120–141; BP diastolic 59–71; PULSE 69–89; RESP 16–28; TEMP 36.3–36.8; O2SAT 91–100; BMI 28.3; BMI 27.5
--- NOTE | 2020-08-03 17:44 | EKG12_ITS ---
Test Reason : CP Blood Pressure : / mmHG Vent. Rate : 074 BPM Atrial Rate : 074 BPM P-R Int : 194 ms QRS Dur : 094 ms QT Int : 410 ms P-R-T Axes : 064 -12 015 degrees QTc Int : 455 ms Sinus rhythm with occasional Premature ventricular complexes Inferior infarct , age undetermined Abnormal ECG When compared with ECG of 03-AUG-2020 17:36, MANUAL COMPARISON REQUIRED, DATA IS UNCONFIRMED Confirmed by NILES PEARCE, OMAR ([id number]), associate editor TYLER PEÑA ([id number]) on 08/05/2020 10:57:01 AM Referred By: LEONILA Confirmed By:OMAR CAGE MD
--- NOTE | 2020-08-03 17:45 | ED.VIS.GEN ---
History of Present Illness Chief Complaint: Chest Pain Informant: Patient Onset: Days Context: Gradual Onset Timing: Intermittent Current Severity: Mild Maximum Severity: Moderate Narrative: Patient presents secondary to shortness of breath and chest pain. He states symptoms been ongoing for the last week or so. He describes shortness of breath with any exertion for the past week and will also get some chest pressure with exertion for the past couple of days. He does note that when he noted the shortness of breath he noted increased swelling in his legs. He has been able to lay down flat to sleep without difficulty. He states he does have a water pill that he takes every day but does not know of a history of CHF. - Past Medical History (1) 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 (2) Essential hypertension Status: Chronic (3) History of mitral valve repair Status: Chronic Comment: annuloplasty 31mm Mildred Austin ring 12/05/96 (4) Presence of stent in coronary artery Status: Chronic Comment: PTCA/JODY PDA and PTCA/JODY in distal RCA to prox Rt posterior atrioventricular artery 09/03/14 (5) Pure hypercholesterolemia Status: Chronic (6) S/P CABG x 1 Status: Chronic Comment: CABG X1- MELENDEZ graft to LAD and Mitral annuloplasty using #31 MM ring November 1996 Past Medical History - Allergies and Home Meds Allergies/Adverse Reactions: Allergies amlodipine Adverse Reaction (Severe, Verified 08/03/20 17:38) Swelling of feet isosorbide Adverse Reaction (Severe, Verified 08/03/20 17:38) Swelling of feet losartan Adverse Reaction (Severe, Verified 08/03/20 17:38) Loss of Appetite Pqfexto-Pnn-Jdx Reductase Inhibitor Adverse Reaction (Verified 08/03/20 17:38) Upset Stomach Prior records reviewed: Yes Surgical History: angioplasty, coronary bypass surgery, - Smoking Status: Never smoker - Family History Maternal Family History: Family History (Last Reviewed 03/03/20 @ 15:13 by Sherry Stanford) Father CVA (cerebral vascular accident) Mother No problems noted. Family History: Reports: No pertinent history Paternal Family History: Family History (Last Reviewed 03/03/20 @ 15:13 by Sherry Stanford) Father CVA (cerebral vascular accident) Mother No problems noted. Family History: Reports: Stroke Sibling Family History: Family History (Last Reviewed 03/03/20 @ 15:13 by Sherry Stanford) Father CVA (cerebral vascular accident) Mother No problems noted. Family History: Reports: Heart Disease - Congenital heart abnormality believed to be a coarctation of the aorta Review of Systems General: Denies: Chills, Fever Eyes: Denies: Visual changes - bilaterally ENT: Denies: Bilateral ear pain Cardiovascular: Reports: Chest pain Respiratory: Reports: Dyspnea. Denies: Cough Gastrointestinal: Denies: Abdominal pain, Vomiting, Diarrhea Genitourinary: Denies: Dysuria Musculoskeletal: Reports: Swelling Skin: Denies: Rash Neurological: Denies: Headache Hematologic: Denies: Easy bruising, Easy bleeding Allergy: Denies: Uticaria Physical Exam Vital Signs/Narrative: Vital Signs Temp Pulse Resp BP Pulse Ox 08/03/20 17:33 97.7 F L 89 25 H 138/65 H 91 Inital Vital Signs reviewed: Yes General: Well nourished, Well developed Head: Normocephalic Neck: Supple Cardiovascular: Regular rate, Regular rhythm, Murmur Respiratory: No distress, CTA bilaterally Abdomen: Soft, Nontender Extremities: Edema - 3+ pitting edema bilateral lower extremities. Skin: Normal color Neurological: Alert, Oriented x3 Psychological: - - Flat affect Diagnostic/Tx/Re-eval Chest X-Ray - ED: 1 View, Read by ED Physician, Chronic Changes, - - Right lung mass Impressions Chest X-Ray 08/03/20 17:55 IMPRESSION: Right lung 3 cm masslike lesion. Unclear etiology refer to CT chest with IV contrast for more definitive evaluation. Chest wall or pleural disease is also in the differential diagnosis. Electronically Signed: Timothy Desai MD at 18:11 EST Tel , Service support , Chest CTA 08/03/20 18:54 IMPRESSION: 1. Acute moderate extent pulmonary embolism. 2. Acute right heart strain. 3. Occlusive index at 45%. 4. 5 cm right lower lobe lesion, probably lung cancer. However, an unusual appearing pneumonia is possible and short-term reevaluation with CT chest with IV contrast is advised. N.B. : The above information has been verbally conveyed by Timothy Desai MD to Crystal Brooks MD, on 08/03/2020 19:35:44 (ET). Electronically Signed: Timothy Desai MD at 19:41 EST Tel , Service support , 08/03/20 17:55 Chest 1 View (Portable) [RAD] Stat 08/03/20 18:54 CTA Chest W/WO Contrast [CT] Stat 08/03/20 17:49 Mucosa - Nose SARS-CoV-2 Antigen (Rapid) - Final Laboratory Results 08/03/20 08/03/20 08/03/20 17:38 17:38 17:38 WBC 13.9 H RBC 4.61 Hgb 12.5 L Hct 40.1 MCV 87.0 MCH 27.1 MCHC 31.2 L RDW Std Deviation 43.4 RDW Coeff of Dinesh 13.7 Plt Count 263 MPV 9.6 Immature Gran % (Auto) 1.700 H Neut % (Auto) 71.7 H Lymph % (Auto) 9.2 L [place] % (Auto) 6.8 Eos % (Auto) 10.0 H Baso % (Auto) 0.6 Absolute Neuts (auto) 10.0 H Absolute Lymphs (auto) 1.28 Nucleated RBC % 0 D-Dimer Quant (PE/DVT) > 20.00 H* Sodium 134 L Potassium 3.3 L Chloride 98 Carbon Dioxide 29.0 Anion Gap 7 BUN 23 H Creatinine 1.24 Estim Creat Clear Calc 34.42 Est GFR (MDRD) Af Amer 71 Est GFR (MDRD) Non-Af 59 L BUN/Creatinine Ratio 18.5 Glucose 227 H Calcium 9.0 Troponin I 0.076 H B-Natriuretic Peptide 08/03/20 17:38 WBC RBC Hgb Hct MCV MCH MCHC RDW Std Deviation RDW Coeff of Dinesh Plt Count MPV Immature Gran % (Auto) Neut % (Auto) Lymph % (Auto) [place] % (Auto) Eos % (Auto) Baso % (Auto) Absolute Neuts (auto) Absolute Lymphs (auto) Nucleated RBC % D-Dimer Quant (PE/DVT) Sodium Potassium Chloride Carbon Dioxide Anion Gap BUN Creatinine Estim Creat Clear Calc Est GFR (MDRD) Af Amer Est GFR (MDRD) Non-Af BUN/Creatinine Ratio Glucose Calcium Troponin I B-Natriuretic Peptide 322.2 H - EKG Initial EKG Interpretation: Sinus Rhythm - Sinus [address] change. - Medical Decision Making Patient was placed on nasal cannulae nursing staff for comfort. Oxygen saturations are in the high 90s on 2 L. Patient has been hemodynamically stable while in the emergency room. Test results are discussed with patient and at bedside. Portable chest x-ray does show a new right lung mass. Troponin is slightly elevated but not consistent with UT. CTA of the chest reveals bilateral pulmonary emboli as well as a new right lower lobe lung mass. In light of these findings patient will be started on a heparin bolus and drip. I will speak with hospitalist regarding admission and further evaluation. - Critical Care Time Critical care time (excluding procedures): 30-74 minutes ED Disposition - Plan for ED Patient: Disposition: Acute Care Hospital [facility] Diagnosis: Bilateral pulmonary embolism, Right lower lobe lung mass
[2020-08-03] MEDS: Aspirin 81 MG TAB.CHEW 324 MG PO (17:53)
--- NOTE | 2020-08-03 17:55 | RAD_ITS ---
STUDY: X-RAY CHEST REASON FOR EXAM: Male, 85 years old. chest pain and sob on and off for 1 week. left sided chest pain radiates to left arm. worst with exertion TECHNIQUE: Frontal portable view of the chest COMPARISON: None. FINDINGS: Right lower lung contains a rounded 3 cm lesion. Remainder the lungs are clear. There is no pneumothorax, pulmonary edema or pleural effusions. Cardiac silhouette is mildly enlarged with prior sternotomy. RAD/Chest 1 View (Portable) IMPRESSION: Right lung 3 cm masslike lesion. Unclear etiology refer to CT chest with IV contrast for more definitive evaluation. Chest wall or pleural disease is also in the differential diagnosis. Electronically Signed: Timothy Desai MD at 18:11 EST Tel , Service support ,
[2020-08-03 18:02] LABS: Absolute Lymphocyte Count 1.28 X10^3/uL (0.83-4.51); Basophil# 0.09 X10^3/uL; Basophil% 0.6 % (0-1); Eosinophil# 1.39 X10^3/uL; Hematocrit 40.1 % (40-54); Hemoglobin 12.5 g/dL (13.0-16.5); Lymphocyte # 1.28 X10^3/ul (4.0); Lymphocyte % 9.2 % (19-41); Mean Corp Hgb Conc 31.2 g/dL (32-36); Mean Corpuscular Hgb 27.1 pg (27.0-32.0); Mean Platelet Vol. 9.6 fl (6.2-12.0); Monocyte# 0.95 X10^3/uL; Monocyte% 6.8 % (0-10); NRBC Flagged by Analyzer 0 % (0-5); Neutrophil # 9.96 X10^3/uL (2.7-7.7); Neutrophil % 71.7 % (47-70); Platelet Count 263 K/mm3 (150-450); RBC Distribution Width CV 13.7 % (11.6-14.6); RBC Distribution Width SD 43.4 fl (35.1-43.9); Red Blood Count 4.61 M/mm3 (4.6-6.2); White Blood Count 13.9 K/mm3 (4.4-11.0)
[2020-08-03 18:21] LABS: Anion Gap 7 (5-15); BUN 23 mg/dL (7-18); BUN/Creat Ratio 18.5 RATIO (10-20); Chloride 98 mmol/L (98-107); Creatinine, Serum 1.24 mg/dL (0.70-1.30); EST Glomerular Filtration Rate 59 mL/min (>60); Est Glom Filt Rate - Afr Amer 71 mL/min (>60); Estimated Creatinine Clearance 34.42 ml/min; Glucose 227 mg/dL (74-106); Potassium 3.3 mmol/L (3.5-5.1); Sodium Level 134 mmol/L (136-145)
[2020-08-03 18:26] LABS: BNP,B-Type NATRIURETIC PEPTIDE 322.2 pg/mL (0-100)
[2020-08-03 18:49] LABS: D-Dimer Quantitative (DVT/PE) > 20.00 FEU/ug/m (0.27-0.49)
--- NOTE | 2020-08-03 18:54 | CT_ITS ---
STUDY: CTA CHEST REASON FOR EXAM: Male, 85 years old. Chest pain shortness of breath one week left-sided chest pain with radiation to the left arm RADIATION DOSAGE (If Supplied By Facility): CTDIvol = ( 12.13 ) mGy, DLP = ( 415.21 ) mGycm TECHNIQUE: The examination was performed with the intravenous administration of IV 75mL Isovue-370. Post-processing of the angiographic images was performed, with multiplanar reformation and 3D reconstruction. Individualized dose optimization techniques were used for this CT. COMPARISON: None. FINDINGS: There is moderately extensive bilateral acute pulmonary embolism in the lower and upper lobes bilaterally. Occlusive index is visually estimated at 45%. Main pulmonary artery is normal. Right ventricle is mildly dilated with acute strain. There is a 5 cm right lower lobe superior segment rounded density, presumed mass. There is adjacent right perihilar density extending to the hilum with contact with mediastinum. However, this is imperfectly evaluated due to angiographic nature of the exam. There are mildly enlarged intestinal lymph nodes measuring up to 1.3 cm in the subcarinal and pretracheal stations. Aorta is normal. Coronary arteries are severely diseased. There is no pneumothorax, pulmonary edema or pleural effusions. Adrenal glands are normal. Osseous structures are intact. CT/CTA Chest W/WO Contrast IMPRESSION: 1. Acute moderate extent pulmonary embolism. 2. Acute right heart strain. 3. Occlusive index at 45%. 4. 5 cm right lower lobe lesion, probably lung cancer. However, an unusual appearing pneumonia is possible and short-term reevaluation with CT chest with IV contrast is advised. N.B. : The above information has been verbally conveyed by Timothy Desai MD to Crystal Brooks MD, on 08/03/2020 19:35:44 (ET). Electronically Signed: Timothy Desai MD at 19:41 EST Tel , Service support ,
[2020-08-03] MEDS: HEPARIN/D5w 25,000 UNITS 25,000 UNITS/250 ML IV.SOLN. 11 UNITS IV (19:47)
[2020-08-03] MEDS: Heparin Injection (Vial) 5,000 UNIT/ML VIAL 5000 UNIT IV (19:47)
[2020-08-03 19:54] LABS: Partial Thromboplast Time 33.7 Seconds (24.1-36.2)
--- NOTE | 2020-08-03 20:06 | HP.PCM_ITS ---
History of Present Illness Date of Admission: 08/03/20 Chief Complaint: shortness of breath The patient is a 85 year old M with a past medical history as outlined was admitted through the ED on 08/03/2020 with a complaint of shortness of breath. Shortness of breath had been going for several days and exacerbated by exertion and relieved by rest. He also has some chest pressure which was retrosternal, with no aggravating or relieving factors though he did try taking Tylenol for it but it did not help much. Symptoms were not improving so he decided coming to the ED today. He denied any weight loss, cough, fever or chills, nausea vomiting or diarrhea. Review systems otherwise negative. Denies any history of weight loss or any history of cancer. Vitals show temperature of 97.4 Fahrenheit with blood pressure of 120/60, pulse rate of 76 and respiratory rate of 28. He was saturating at 95% on 2 L of oxygen. Chemistry showed sodium of 134 and potassium of 3.3 as well as creatinine of 1.24. BNP was 322 and troponin was 0.076. CBC showed hemoglobin of 12.5 and WBC of 13.9 as well as platelets of 263. Chest x-ray showed a right lung 3 cm masslike lesion. Chest CT done showed moderately extensive bilateral acute pulmonary embolism in the lower and upper lobes bilaterally with right ventricle mildly dilated with acute strain and a 5 cm right lower lobe rounded density which is a presumed mass with adjacent right perihilar density extending to the hilum with contact with mediastinum and mildly enlarged intestinal lymph nodes measuring up to 1.3 cm in the subcarinal and pretracheal stations. He has been admitted to be managed for acute hypoxic respiratory insufficiency due to submassive bilateral PE and a right lung mass presumed to be cancer. 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) Encounter for long-term current use of high risk medication (Chronic) Carotid bruit (Chronic) Palpitations (Chronic) S/P CABG x 1 (Chronic ~12/05/96) CABG X1- MELENDEZ graft to LAD and Mitral annuloplasty using #31 MM ring November 1996 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) Medical History: Medical History (Last Updated 03/03/20 @ 15:13 by Sherry Stanford) Presence of stent in coronary artery (Chronic) Onset Date: ~09/03/14 Z95.5 PTCA/JODY PDA and PTCA/JODY in distal RCA to prox Rt posterior atrioventricular artery 09/03/14 Pure hypercholesterolemia (Chronic) E78.00 Essential hypertension (Chronic) I10 Non-rheumatic mitral regurgitation (Chronic) I34.0 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) I25.10 Palpitations (Chronic) R00.2 Arthritis M19.90 Bloody stool K92.1 Difficulty balancing R29.818 Knee pain M25.569 SOB (shortness of breath) R06.02 Stroke I63.9 Parkinsons disease G20 CAD (coronary artery disease) (Inactive) I25.10 CABG MELENDEZ graft to LAD and Mitral annuloplasty using #31 MM ring November 1996, JODY to PDA 2014 Hyperlipidemia (Inactive) E78.5 Hypertension (Inactive) I10 Mitral valve regurgitation (Inactive) I34.0 annuloplasty ring #31 mm ring 1996 Allergies amlodipine Adverse Reaction (Severe, Verified 08/03/20 17:38) Swelling of feet isosorbide Adverse Reaction (Severe, Verified 08/03/20 17:38) Swelling of feet losartan Adverse Reaction (Severe, Verified 08/03/20 17:38) Loss of Appetite [id number] Reductase Inhibitor Adverse Reaction (Verified 08/03/20 17:38) Upset Stomach Home Medications: Ambulatory Orders Medication Instructions Recorded Aspirin [Aspirin, Baby] 81 mg PO QHS 08/25/14 Acetaminophen [Tylenol] 500 mg PO PRN PRN 08/24/18 Fluticasone 0.05% [Flonase Nasal 2 spray NASAL DAILY 08/24/18 [place]] Hydrochlorothiazide [Hctz] 25 mg PO DAILY 08/24/18 Metoprolol Tartrate [Lopressor 12.5 mg PO BID 08/24/18 (beta jenni)] fexofenadine 180 mg tablet 180 mg PO DAILY 05/31/19 carbidopa 25 mg-levodopa 100 mg 1 tab PO TID 03/03/20 tablet enalapril maleate 20 mg tablet 10 mg PO DAILY tab 03/03/20 ketoconazole 2 % shampoo 1 applic TOPICAL 2XW 03/03/20 nitroglycerin 0.4 mg sublingual 0.4 mg SUBLINGUAL Q5-15M #25 tab 03/03/20 tablet triamcinolone acetonide 0.1 % 1 applic TOPICAL DAILY PRN 03/03/20 topical cream Amoxicillin [Amoxil] 500 mg PO DAILY PRN 08/03/20 Pantoprazole Sodium [Protonix] 40 mg PO DAILY 08/03/20 Potassium Chloride 20 meq PO DAILY 08/03/20 Surgical History: Surgical History (Last Reviewed 03/03/20 @ 15:13 by Sherry Stanford) History of mitral valve repair (Chronic) Onset Date: ~12/05/96 Z98.890 annuloplasty 31mm Mildred Austin ring 12/05/96 S/P CABG x 1 (Chronic) Onset Date: ~12/05/96 Z95.1 CABG X1- MELENDEZ graft to LAD and Mitral annuloplasty using #31 MM ring November 1996 Presence of coronary angioplasty implant and graft Onset Date: ~09/03/14 Z95.5 PTCA/JODY PDA and PTCA/JODY in distal RCA to prox Rt posterior atrioventricular artery 09/03/14 S/P PTCA (percutaneous transluminal coronary angioplasty) (Inactive) Z98.61 PTCA with JODY to PDA 09/01 S/P mitral valve repair (Inactive) Z98.890 annuloplasty ring #31 mm ring 1996 Surgical History: angioplasty, coronary bypass surgery, - Psychiatric History: No pertinent psych hx Smoking Status: Never smoker Tobacco Use: Non-smoker - *Family History Maternal Family History: Family History (Last Reviewed 03/03/20 @ 15:13 by Sherry Stanford) Father CVA (cerebral vascular accident) Mother No problems noted. History Items: No pertinent history Paternal Family History: Family History (Last Reviewed 03/03/20 @ 15:13 by Sherry Stanford) Father CVA (cerebral vascular accident) Mother No problems noted. History Items: Stroke Sibling Family History: Family History (Last Reviewed 03/03/20 @ 15:13 by Sherry Stanford) Father CVA (cerebral vascular accident) Mother No problems noted. History Items: Heart Disease - Congenital heart abnormality believed to be a coarctation of the aorta Review of Systems Constitutional: Denies: Chills, Fever, Malaise, Weakness, Weight Change HEENT: Denies: Head Aches, Sinus Congestion, Sinus Drainage Cardiovascular: Reports: Chest Pain, Chest Pressure. Denies: Heaviness, Light Headedness, Orthopnea, Palpitations Respiratory: Reports: Shortness of Breath, Shortness of breath upon exertion. Denies: Cough, Shortness of breath at rest, Sputum production Gastrointestinal: Denies: Abdominal Pain, Nausea, Vomiting Genitourinary: Denies: Dysuria Musculoskeletal: Denies: Joint Pain, Joint Tenderness Skin: Denies: Rash, Wounds Neurological: Denies: Numbness, Tingling, Focal weakness Psychiatric: Denies: Anxiety, Depression, Homicidal Ideations, Suicidal Ideations Hematologic/ Lymphatic: Denies: Easy Bruising, Easy Bleeding VTE Information - Inpt Only VTE Present on Admission: Yes Patient Problems: Active and Suspected Problems (Last Updated 03/03/20 @ 15:13 by Sherry Stanford) Bilateral pulmonary embolism (Acute) Right lower lobe lung mass (Acute) - Physical Exam Vitals/I&O's: Vital Signs Temp Pulse Resp BP Pulse Ox 97.7 F L 74 26 H 139/70 H 94 08/03/20 17:33 08/03/20 19:00 08/03/20 19:00 08/03/20 19:00 08/03/20 19:00 Oxygen Flow Rate (L/min) 2 Oxygen Delivery Method Nasal Cannula Weight: 160 lb 0.889 oz Body Mass Index (BMI) 28.3 General: Alert, Oriented x3, Cooperative, No apparent distress HEENT: Atraumatic, PERRLA, EOMI, Normocephalic Oral: Dry Mucosa Neck: Supple, No JVD, Negative Carotid Bruits Lungs: Tachypneic, - - mildly diminished breath sounds bibasally, no wheezes or crackles. on 2L of oxygen by nasal canula Cardiovascular: Regular rate, Regular Rhythm, Normal S1, Normal S2, No murmurs Abdomen: Bowel Sounds Present, Soft, Non Tender Extremities: No clubbing, No cyanosis, No edema, Capillary Refill Less than 3 Seconds Skin: No rashes, No breakdown Musculoskeletal: No Tenderness to Palpation of Joints or Extremities Lymphatic: No Cervical, Supraclavicular, or Inguinal Adenopathy Neurological: Cranial nerves II-XII grossly intact, Neuro grossly intact, Motor Exam 5/5 strength throughout Psych/Mental Status: Normal Affect, Appropriate, Alert and oriented to time, place, person, mood and affect Microbiology Past 72 Hours 08/03/20 17:49 Mucosa - Nose SARS-CoV-2 Antigen (Rapid) - Final Laboratory Results 08/03/20 17:38: WBC 13.9 H, RBC 4.61, Hgb 12.5 L, Hct 40.1, MCV 87.0, MCH 27.1, MCHC 31.2 L, RDW Std Deviation 43.4, RDW Coeff of Dinesh 13.7, Plt Count 263, MPV 9.6, Immature Gran % (Auto) 1.700 H, Neut % (Auto) 71.7 H, Lymph % (Auto) 9.2 L, Sunflower % (Auto) 6.8, Eos % (Auto) 10.0 H, Baso % (Auto) 0.6, Absolute Neuts (auto) 10.0 H, Absolute Lymphs (auto) 1.28, Nucleated RBC % 0 08/03/20 17:38: D-Dimer Quant (PE/DVT) > 20.00 H* 08/03/20 17:38: Sodium 134 L, Potassium 3.3 L, Chloride 98, Carbon Dioxide 29.0, Anion Gap 7, BUN 23 H, Creatinine 1.24, Estim Creat Clear Calc 34.42, Est GFR (MDRD) Af Amer 71, Est GFR (MDRD) Non-Af 59 L, BUN/Creatinine Ratio 18.5, Glucose 227 H, Calcium 9.0, Troponin I 0.076 H 08/03/20 17:38: B-Natriuretic Peptide 322.2 H 08/03/20 17:38: APTT 33.7 Diagnostic Data Chest X-Ray 08/03/20 17:55 IMPRESSION: Right lung 3 cm masslike lesion. Unclear etiology refer to CT chest with IV contrast for more definitive evaluation. Chest wall or pleural disease is also in the differential diagnosis. Electronically Signed: Timothy Desai MD at 18:11 EST Tel , Service support , Chest CTA 08/03/20 18:54 IMPRESSION: 1. Acute moderate extent pulmonary embolism. 2. Acute right heart strain. 3. Occlusive index at 45%. 4. 5 cm right lower lobe lesion, probably lung cancer. However, an unusual appearing pneumonia is possible and short-term reevaluation with CT chest with IV contrast is advised. N.B. : The above information has been verbally conveyed by Timothy Desai MD to Crystal Brooks MD, on 08/03/2020 19:35:44 (ET). Electronically Signed: Timothy Desai MD at 19:41 EST Tel , Service support , ADDENDUM: 08/03/20 194 IMPRESSION: 1. Acute moderate extent pulmonary embolism. 2. Acute right heart strain. 3. Occlusive index at 45%. 4. 5 cm right lower lobe lesion, probably lung cancer. However, an unusual appearing pneumonia is possible and short-term reevaluation with CT chest with IV contrast is advised. N.B. : The above information has been verbally conveyed by Timothy Desai MD to Crystal Brooks MD, on 08/03/2020 19:35:44 (ET). Electronically Signed: Timothy Desai MD at 19:41 EST Tel , Service support , Current Medications Heparin Sodium (Porcine) (Heparin Injection (Vial) 5,000 Unit/Ml Vial) 0 unit IV UD PRN; Protocol PRN Reason: dose adjustment Heparin Sodium/Dextrose () 25,000 units in 250 mls @ 11 mls/hr IV .[id number] MANI; Protocol Last Admin: 08/03/20 19:47 Dose: 1,100 units/hr, 11 mls/hr Documented by: Assessment/Plan All Active Problems (Last Updated 03/03/20 @ 15:13 by Sherry Stanford) Bilateral pulmonary embolism (Acute) Right lower lobe lung mass (Acute) Altered mental status (Acute) Accelerated hypertension (Acute) Chest pressure (Acute) Chest pain (Resolved) 85-year-old male admitted with a complaint of shortness of breath and chest pressure #Acute bilateral submassive PE * admit to PCU * likely precipitated by right lung mass which is presumed malignant * initial troponin is 0.076, and BNP was 322 * Chest CT showed bilateral lower lobe PE with mild right ventricular strain * on heparin drip, will continue * breathing treatment with bronchodilators * titrate oxygen to maintain sats .90% * consult pulmonology * 2D echo * cycle troponins * #Acute hypoxic respiratory insufficiency due to PE: as above #Right lung mass * CT shows a right lung ~ 5cm mass * this is presumed to be cancer * consult pulmonology * will need lung biopsy to confirm results, then oncology can be consulted. * #Hypokalemia: K is 3.3. Will replace adn monitor Tach elevated troponin: Initial troponin 0 0.076. This can explain by right ventricular strain. Will trend troponins. #History of CAD s/p CABG and stents #Hypertension: On enalapril and hydrochlorothiazide as well as metoprolol #Hyperlipidemia: stable. Not on statins due to allergy #Mitral valve regurgitation: S/p ring annuloplasty in 1996. Stable #Parkinson's disease: Stable. On carbidopa levodopa Code status: full code * Patient and counseled extensively about different types of CODE STATUS including full code, DNR CCA and DNR CCA. Patient elects to be full code. Total [id number] time 18 minutes. Inpatient E&M: 16003 Init Hosp L3 Procedures: 81811 Advncd Care Plan 30 Min
[2020-08-03] MEDS: Metoprolol Tartrate 25 MG Tablet 12.5 MG PO (22:51)
[2020-08-03] MEDS: Aspirin 81 MG TAB.CHEW PO (22:51)
[2020-08-03] MEDS: CARBIDOPA/LEVODOPA CR 50/200 Tablet PO (23:42)
[2020-08-03] MEDS: CLARIFY ORDER 1 EACH NOTE (23:49)
[2020-08-04] VITALS (18 sets, daily range): BP systolic 101–129; BP diastolic 52–79; PULSE 62–84; RESP 16–18; TEMP 36.7–37; O2SAT 92–100
[2020-08-04 02:10] LABS: Partial Thromboplast Time 120.9 Seconds (24.1-36.2)
[2020-08-04 04:56] LABS: Absolute Lymphocyte Count 1.62 X10^3/uL (0.83-4.51); Absolute Neutrophil Count 7.5 X10^3/uL (2.0-7.7); Basophil# 0.12 X10^3/uL; Eosinophil# 1.41 X10^3/uL; Eosinophils% 11.8 % (0-5); Hemoglobin 10.9 g/dL (13.0-16.5); Lymphocyte # 1.62 X10^3/ul (4.0); Lymphocyte % 13.6 % (19-41); Mean Corp Hgb Conc 31.1 g/dL (32-36); Mean Corpuscular Hgb 27.2 pg (27.0-32.0); Mean Corpuscular Volume 87.3 fL (80-94); Mean Platelet Vol. 9.3 fl (6.2-12.0); Monocyte# 1.08 X10^3/uL; Monocyte% 9.1 % (0-10); NRBC Flagged by Analyzer 0 % (0-5); Neutrophil # 7.49 X10^3/uL (2.7-7.7); Neutrophil % 62.7 % (47-70); Platelet Count 215 K/mm3 (150-450); RBC Distribution Width CV 13.6 % (11.6-14.6); RBC Distribution Width SD 43.8 fl (35.1-43.9); Red Blood Count 4.01 M/mm3 (4.6-6.2); White Blood Count 11.9 K/mm3 (4.4-11.0)
[2020-08-04 05:23] LABS: Anion Gap 5 (5-15); BUN 20 mg/dL (7-18); BUN/Creat Ratio 21.5 RATIO (10-20); Calcium,Total 8.8 mg/dL (8.5-10.1); Chloride 102 mmol/L (98-107); Creatinine, Serum 0.93 mg/dL (0.70-1.30); EST Glomerular Filtration Rate 82 mL/min (>60); Est Glom Filt Rate - Afr Amer 99 mL/min (>60); Estimated Creatinine Clearance 45.89 ml/min; Glucose 138 mg/dL (74-106); Potassium 3.6 mmol/L (3.5-5.1); Sodium Level 136 mmol/L (136-145)
--- NOTE | 2020-08-04 05:55 | ECHOD_ITS ---
Reason For Study: Dyspnea, SOB, Bilateral PEs Procedure This was a 2D Doppler, Color Flow transthoracic echocardiogram. Exam performed portable in patient room. Left Ventricle Normal LV size. Moderate concentric left ventricular hypertrophy. Left ventricular systolic function is normal. The estimated ejection fraction is 65 %. Stage 1 diastolic dysfunction. No regional wall motion abnormalities noted. Right Ventricle Normal RV size. Normal systolic function. Atria Normal left atrium. Normal right atrium. Mitral Valve Bileaflet diffuse mitral valve thickening. Bioprosthetic mitral valve. Tricuspid Valve Normal tricuspid valve. Moderate (2+) tricuspid valve insufficiency. Pulmonary artery systolic pressure is 68 mmHg. Moderate pulmonary hypertension. Aortic Valve Trisinus/trileaflet aortic valve. Mild focal aortic valve calcification. Mild (1+) aortic valve insufficiency. Pulmonic Valve Normal pulmonic valve. Mild (1+) pulmonic valve insufficiency. Great Vessels Normal aortic root. The pulmonary artery is normal size. Normal inferior vena cava. Pericardium/Pleural No pericardial effusion. MMode/2D Measurements & Calculations LVIDd: 4.1 cm IVSd: 1.5 cm LVOT diam: 2.1 cm LVIDs: 3.1 cm LVPWd: 1.3 cm LVOT area: 3.3 cm2 RVDd: 4.2 cm FS: 24.9 % Ao root diam: 3.0 cm LAV(MOD-bp): 40.5 ml LVAd ap4: 20.6 cm2 LAV(MOD-bp) Indexed: 23.4 ml/m2 EDV(MOD-sp4): 48.6 ml LAV(MOD-sp2): 34.5 ml EDV(sp4-el): 49.8 ml LAV(MOD-sp4): 46.3 ml LVAs ap4: 10.3 cm2 ESV(MOD-sp4): 15.4 ml ESV(sp4-el): 16.1 ml EF(MOD-sp4): 68.3 % EF(sp4-el): 67.6 % SV(MOD-sp4): 33.2 ml SV(sp4-el): 33.7 ml LA A4 area: 17.6 cm2 LA dimension(2D): 4.3 cm RA A4 area: 22.1 cm2 Time Measurements MV dec time: 0.25 sec Doppler Measurements & Calculations MV E max tan: 104.9 cm/sec Lat Peak E' Tan: 7.9 cm/sec Med Peak E' Tan: 5.5 cm/sec MV A max tan: 138.9 cm/sec E/E' lat: 13.3 E/E' med: 19.1 MV E/A: 0.76 MV V2 max: 153.6 cm/sec MV P1/2t max tan: 118.5 cm/sec Ao V2 max: 214.5 cm/sec MV max P.4 mmHg MV P1/2t: 111.3 msec Ao max P.4 mmHg MV V2 mean: 89.0 cm/sec Ao V2 mean: 138.9 cm/sec MV mean P.6 mmHg MV dec slope: 311.9 cm/sec2 Ao mean P.8 mmHg MV V2 VTI: 48.1 cm MVA(P1/2t): 2.0 cm2 Ao V2 VTI: 37.3 cm MVA(VTI): 1.8 cm2 KATHY(I,D): 2.4 cm2 KATHY(V,D): 2.1 cm2 LV V1 max: 136.6 cm/sec SV(LVOT): 88.2 ml PA V2 max: 107.9 cm/sec LV V1 max P.5 mmHg LV V1 mean P.6 mmHg LV V1 mean: 89.2 cm/sec LV V1 VTI: 26.6 cm PI end-d tan: 110.4 cm/sec TR max tan: 402.6 cm/sec TR max P.8 mmHg Interpretation Summary Normal LV size. Moderate concentric left ventricular hypertrophy. Left ventricular systolic function is normal. The estimated ejection fraction is 65 %. Pulmonary artery systolic pressure is 68 mmHg. Moderate pulmonary hypertension. Stage 1 diastolic dysfunction. Mild focal aortic valve calcification. Ordering Physician: Willow Buenrostro Referring Physician: Johnson Tavarez Chi Performed By: Shaila Camacho, BETH, RVT
[2020-08-04] MEDS: Carbidopa/Levodopa 25/100 Tablet PO ×3 (06:01→18:25)
--- NOTE | 2020-08-04 07:45 | CON.PCM_ITS ---
Problem List (1) Bilateral pulmonary embolism Status: Acute (2) Right lower lobe lung mass Status: Acute (3) Accelerated hypertension Status: Acute (4) History of mitral valve repair Status: Chronic Comment: annuloplasty 31mm Mildred Austin ring 12/05/96 (5) Presence of stent in coronary artery Status: Chronic Comment: PTCA/JODY PDA and PTCA/JODY in distal RCA to prox Rt posterior atrioventricular artery 09/03/14 (6) Pure hypercholesterolemia Status: Chronic (7) Essential hypertension Status: Chronic (8) 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 Reason for Consult Date of Consultation: 08/04/20 Reason for Consultation: PE and lung mass History of Present Illness: The patient is an 85 year old M, with past medical history listed below, who presented to [facility] on 08/03/2020 with a 1 week history of ongoing shortness of breath on exertion and chest pressure. Patient had initially noticed problems with walking up steps, but got to the point where he was short of breath at rest. Patient reportedly had also developed lower extremity swelling, but had no problems lying flat to sleep at night. Patient is on Lasix, but does not report any history of congestive heart failure. In the ER, patient was noted to require 2 L nasal cannula to maintain saturations. Laboratory work-up did show an elevated BNP of 322, creatinine of 1.2 and a leukocytosis of 13.9. Patient had a chest x-ray showing a possible lung mass, so a CTA was obtained. This showed a moderate bilateral PE with evidence of right heart strain and a 5 cm right lower lobe mass, so the patient was placed on anticoagulation and admitted to PCU for further evaluation. Patient reports she has started DVT and PE previously when he was 39 years old following a leg fracture. Patient also reports being placed on Xarelto more recent past, but is unclear on its indication or why it was discontinued. Patient has not reported any problems with GI bleed or extensive hematoma previously. Patient overall feels slightly improved compared to admission, but still feels vague left-sided chest pressure. No diaphoresis has been noted. Patient does have an extensive cardiac history, but denies any pulmonary history. Patient is reportedly a non-smoker. Patient does report a colonoscopy about 5 years ago that had polyps, but no cancer. Patient believes his routine screening for cancer is up-to-date. Patient did mention that he would want to pursue lung mass for possible cancer diagnosis as he is older, but still independent. Review of systems otherwise negative from a constitutional, HEENT, respiratory, cardiovascular, GI, genitourinary, musculoskeletal, skin, neurologic, psychiatric and hematologic system unless stated above. Past Medical History Past Medical History (Chronic Problems): Chronic Problems (Last Updated 03/03/20 @ 15:13 by Sherry Stanford) History of mitral valve repair (Chronic ~12/05/96) annuloplasty 31mm Mildred Austin ring 12/05/96 Presence of stent in coronary artery (Chronic ~09/03/14) PTCA/JODY PDA and PTCA/JODY in distal RCA to prox Rt posterior atrioventricular artery 09/03/14 Pure hypercholesterolemia (Chronic) Essential hypertension (Chronic) Non-rheumatic mitral regurgitation (Chronic) Atherosclerotic heart disease of [place] coronary artery without angina pectoris (Chronic) Encounter for long-term current use of high risk medication (Chronic) Carotid bruit (Chronic) Palpitations (Chronic) S/P CABG x 1 (Chronic ~12/05/96) CABG X1- MELENDEZ graft to LAD and Mitral annuloplasty using #31 MM ring November 1996 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) Medical History: Medical History (Last Updated 03/03/20 @ 15:13 by Sherry Stanford) Presence of stent in coronary artery (Chronic) Onset Date: ~09/03/14 Z95.5 PTCA/JODY PDA and PTCA/JODY in distal RCA to prox Rt posterior atrioventricular artery 09/03/14 Pure hypercholesterolemia (Chronic) E78.00 Essential hypertension (Chronic) I10 Non-rheumatic mitral regurgitation (Chronic) I34.0 Atherosclerotic heart disease of [place] coronary artery without angina pectoris (Chronic) I25.10 Palpitations (Chronic) R00.2 Arthritis M19.90 Bloody stool K92.1 Difficulty balancing R29.818 Knee pain M25.569 SOB (shortness of breath) R06.02 Stroke I63.9 Parkinsons disease G20 CAD (coronary artery disease) (Inactive) I25.10 CABG MELENDEZ graft to LAD and Mitral annuloplasty using #31 MM ring November 1996, JODY to PDA 2014 Hyperlipidemia (Inactive) E78.5 Hypertension (Inactive) I10 Mitral valve regurgitation (Inactive) I34.0 annuloplasty ring #31 mm ring 1996 Allergies amlodipine Adverse Reaction (Severe, Verified 08/03/20 17:38) Swelling of feet isosorbide Adverse Reaction (Severe, Verified 08/03/20 17:38) Swelling of feet losartan Adverse Reaction (Severe, Verified 08/03/20 17:38) Loss of Appetite Zybibmu-Pzm-Obs Reductase Inhibitor Adverse Reaction (Verified 08/03/20 17:38) Upset Stomach Home Medications: Ambulatory Orders Medication Instructions Recorded Aspirin [Aspirin, Baby] 81 mg PO QHS 08/25/14 Acetaminophen [Tylenol] 500 mg PO PRN PRN 08/24/18 Fluticasone 0.05% [Flonase Nasal 2 spray NASAL DAILY 08/24/18 [place]] Hydrochlorothiazide [Hctz] 25 mg PO DAILY 08/24/18 Metoprolol Tartrate [Lopressor 12.5 mg PO BID 08/24/18 (beta jenni)] fexofenadine 180 mg tablet 180 mg PO BID 05/31/19 carbidopa 25 mg-levodopa 100 mg 1 tab PO TID 03/03/20 tablet enalapril maleate 20 mg tablet 10 mg PO DAILY tab 03/03/20 ketoconazole 2 % shampoo 1 applic TOPICAL 2XW 03/03/20 nitroglycerin 0.4 mg sublingual 0.4 mg SUBLINGUAL Q5-15M #25 tab 03/03/20 tablet triamcinolone acetonide 0.1 % 1 applic TOPICAL DAILY PRN 03/03/20 topical cream Amoxicillin [Amoxil] 500 mg PO DAILY PRN 08/03/20 Carbidopa/Levodopa [Carbidopa-Levo 50 - 200 tab PO QHS 08/03/20 ER 50-200 Tab] Pantoprazole Sodium [Protonix] 40 mg PO DAILY 08/03/20 Potassium Chloride 20 meq PO DAILY 08/03/20 Surgical History: Surgical History (Last Reviewed 03/03/20 @ 15:13 by Sherry Stanford) History of mitral valve repair (Chronic) Onset Date: ~12/05/96 Z98.890 annuloplasty 31mm Mildred Austin ring 12/05/96 S/P CABG x 1 (Chronic) Onset Date: ~12/05/96 Z95.1 CABG X1- MELENDEZ graft to LAD and Mitral annuloplasty using #31 MM ring November 1996 Presence of coronary angioplasty implant and graft Onset Date: ~09/03/14 Z95.5 PTCA/JODY PDA and PTCA/JODY in distal RCA to prox Rt posterior atrioventricular artery 09/03/14 S/P PTCA (percutaneous transluminal coronary angioplasty) (Inactive) Z98.61 PTCA with JODY to PDA 09/01 S/P mitral valve repair (Inactive) Z98.890 annuloplasty ring #31 mm ring 1996 Surgical History: angioplasty, coronary bypass surgery, - Psychiatric History: No pertinent psych hx Smoking Status: Never smoker Tobacco Use: Non-smoker - *Family History Maternal Family History: Family History (Last Reviewed 03/03/20 @ 15:13 by Sherry Stanford) Father CVA (cerebral vascular accident) Mother No problems noted. History Items: No pertinent history Paternal Family History: Family History (Last Reviewed 03/03/20 @ 15:13 by Sherry Stanford) Father CVA (cerebral vascular accident) Mother No problems noted. History Items: Stroke Sibling Family History: Family History (Last Reviewed 03/03/20 @ 15:13 by Sherry Stanford) Father CVA (cerebral vascular accident) Mother No problems noted. 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 CTA of the chest does not show any emphysematous changes, but bilateral PEs are noted. Patient does have a right lower lobe peripherally based 5 cm mass with a positive airway sign in the posterior subsegment of the right lower lobe. There is some mild hilar adenopathy noted. Patient's last echocardiogram was in December 2018 showing an EF of 60% pulmonary artery pressure was elevated at 39 mmHg. Patient did have some aortic valve calcification and an annuloplasty ring. - Physical Exam Vitals/I&O's: Vital Signs Temp Pulse Resp BP Pulse Ox 36.9 C 74 18 129/56 H 97 08/04/20 04:15 08/04/20 04:15 08/04/20 04:15 08/04/20 04:15 08/04/20 04:15 Oxygen Flow Rate (L/min) 2 Oxygen Delivery Method Nasal Cannula Weight: 70.5 kg Body Mass Index (BMI) 27.5 Intake and Output for Last 24 Hours 08/02/20 08/03/20 08/04/20 23:59 23:59 23:59 Intake Total 555 / 555 550.95 / 550.95 Output Total 450 / 450 Balance 105 / 105 550.95 / 550.95 General: Alert, Oriented x3, Cooperative, No apparent distress, Well developed, Well nourished, - - No conversational dyspnea. HEENT: Atraumatic, PERRLA, EOMI, Normocephalic, - - No scleral icterus or injection noted Oral: Moist Mucosa, No Gingival or Mucosal Lesions/ Ulcerations Neck: Supple, No Nodes, Trachea Midline, JVD, Right Lungs: No rhonchi, No wheeze, No rales, Diminished, - - Symmetric expansion Cardiovascular: Regular rate, Regular Rhythm, Normal S1, Murmur - Grade 2 out of 6 systolic ejection murmur at the right sternal border., - - Accentuated S2 Abdomen: Bowel Sounds Present, Soft, Non Tender, Non-Distended Extremities: No clubbing, No cyanosis, Edema - Bilateral lower extremities Skin: No rashes, No breakdown Musculoskeletal: No Tenderness to Palpation of Joints or Extremities Lymphatic: No Cervical, Supraclavicular, or Inguinal Adenopathy Neurological: Cranial nerves II-XII grossly intact, Neuro grossly intact, Motor Exam 5/5 strength throughout Psych/Mental Status: Alert and oriented to time, place, person, mood and affect Microbiology Past 72 Hours 08/03/20 17:49 Mucosa - Nose SARS-CoV-2 Antigen (Rapid) - Final Laboratory Results 08/03/20 17:38: WBC 13.9 H, RBC 4.61, Hgb 12.5 L, Hct 40.1, MCV 87.0, MCH 27.1, MCHC 31.2 L, RDW Std Deviation 43.4, RDW Coeff of Dinesh 13.7, Plt Count 263, MPV 9.6, Immature Gran % (Auto) 1.700 H, Neut % (Auto) 71.7 H, Lymph % (Auto) 9.2 L, Drew % (Auto) 6.8, Eos % (Auto) 10.0 H, Baso % (Auto) 0.6, Absolute Neuts (auto) 10.0 H, Absolute Lymphs (auto) 1.28, Nucleated RBC % 0 08/03/20 17:38: D-Dimer Quant (PE/DVT) > 20.00 H* 08/03/20 17:38: Sodium 134 L, Potassium 3.3 L, Chloride 98, Carbon Dioxide 29.0, Anion Gap 7, BUN 23 H, Creatinine 1.24, Estim Creat Clear Calc 34.42, Est GFR (MDRD) Af Amer 71, Est GFR (MDRD) Non-Af 59 L, BUN/Creatinine Ratio 18.5, Glucose 227 H, Calcium 9.0, Troponin I 0.076 H 08/03/20 17:38: B-Natriuretic Peptide 322.2 H 08/03/20 17:38: APTT 33.7 08/03/20 22:09: Troponin I 0.075 H 08/04/20 01:40: Troponin I 0.064 H 08/04/20 01:40: APTT 120.9 H* 08/04/20 04:46: WBC 11.9 H, RBC 4.01 L, Hgb 10.9 L, Hct 35.0 L, MCV 87.3, MCH 27.2, MCHC 31.1 L, RDW Std Deviation 43.8, RDW Coeff of Dinesh 13.6, Plt Count 215, MPV 9.3, Immature Gran % (Auto) 1.800 H, Neut % (Auto) 62.7, Lymph % (Auto) 13.6 L, Drew % (Auto) 9.1, Eos % (Auto) 11.8 H, Baso % (Auto) 1.0, Absolute Neuts (auto) 7.5, Absolute Lymphs (auto) 1.62, Nucleated RBC % 0 08/04/20 04:46: Sodium 136, Potassium 3.6, Chloride 102, Carbon Dioxide 29.0, Anion Gap 5, BUN 20 H, Creatinine 0.93, Estim Creat Clear Calc 45.89, Est GFR (MDRD) Af Amer 99, Est GFR (MDRD) Non-Af 82, BUN/Creatinine Ratio 21.5 H, Glucose 138 H, Calcium 8.8 08/04/20 04:46: Troponin I 0.058 H Current Medications Acetaminophen (Acetaminophen 325 Mg Tablet) 650 mg PO Q6H PRN PRN PRN Reason: Pain 1-10 or Fever Aspirin (Aspirin 81 Mg Tab.Chew) 81 mg PO QHS [facility] Last Admin: 08/03/20 22:51 Dose: 81 mg Documented by: Carbidopa/Levodopa (Carbidopa/Levodopa 25/100 Tablet) 1 tablet PO TIDAC [facility] Last Admin: 08/04/20 06:01 Dose: 1 tablet Documented by: Carbidopa/Levodopa (Carbidopa/Levodopa Cr 50/200 Tablet) 1 tablet PO QHS [facility] Last Admin: 08/03/20 23:42 Dose: 1 tablet Documented by: Fluticasone Propionate (Fluticasone 0.05% 1 [place] Nasal.Sry) 2 spray NASAL DAILY [facility] Heparin Sodium (Porcine) (Heparin Injection (Vial) 5,000 Unit/Ml Vial) 0 unit IV UD PRN; Protocol PRN Reason: dose adjustment Hydrochlorothiazide (Hydrochlorothiazide 25 Mg Tablet) 25 mg PO DAILY [facility] Hydrocortisone (Hydrocortisone 2.5% Crm) 1 applic TOPICAL DAILY PRN PRN Reason: inflammation Heparin Sodium/Dextrose () 25,000 units in 250 mls @ 11 mls/hr IV .[id number] [facility]; Protocol Last Titration: 08/04/20 04:16 Dose: 800 units/hr, 8 mls/hr Documented by: Lisinopril (Lisinopril 10 Mg Tablet) 10 mg PO DAILY [facility] Loratadine (Loratadine 10 Mg Tablet) 10 mg PO DAILY [facility] Metoprolol Tartrate (Metoprolol Tartrate 25 Mg Tablet) 12.5 mg PO BID [facility] Last Admin: 08/03/20 22:51 Dose: 12.5 mg Documented by: Nitroglycerin (Nitroglycerin (Inpatient Use) 0.4 Mg Tab.Subl) 0.4 mg SUBLINGUAL Q5M PRN PRN Reason: CARDIAC/CHEST PAIN Non-Formulary Medication (Ketoconazole) 1 applic TOPICAL 2XW [facility] Nutritional Formula (Lactose Free) (Ensure Enlive 120 Ml Liquid) 120 ml PO 4X/DAY [facility] Ondansetron HCl (Ondansetron 4 Mg/2 Ml Vial) 4 mg IV Q8H PRN PRN PRN Reason: NAUSEA/VOMITING Oxycodone HCl (Oxycodone 5 Mg Tablet) 5 mg PO Q4H PRN PRN PRN Reason: Pain Score 4-10 Pantoprazole Sodium (Pantoprazole Sodium 40 Mg Tablet) 40 mg PO DAILY [facility]I Potassium Chloride (Potassium Chloride Oral Tablet 20 Meq) 20 meq PO DAILY [facility]I Sodium Chloride (0.9% Saline Lock 10 Ml Syringe) 10 - 40 ml IV UD PRN PRN Reason: SALINE FLUSH Clinical Impression(s) from Imaging Studies Chest X-Ray 08/03/20 17:55 IMPRESSION: Right lung 3 cm masslike lesion. Unclear etiology refer to CT chest with IV contrast for more definitive evaluation. Chest wall or pleural disease is also in the differential diagnosis. Electronically Signed: Timothy Desai MD at 18:11 EST Tel , Service support , Chest CTA 08/03/20 18:54 IMPRESSION: 1. Acute moderate extent pulmonary embolism. 2. Acute right heart strain. 3. Occlusive index at 45%. 4. 5 cm right lower lobe lesion, probably lung cancer. However, an unusual appearing pneumonia is possible and short-term reevaluation with CT chest with IV contrast is advised. N.B. : The above information has been verbally conveyed by Timothy Desai MD to Crystal Brooks MD, on 08/03/2020 19:35:44 (ET). Electronically Signed: Timothy Desai MD at 19:41 EST Tel , Service support , ADDENDUM: 08/03/20 194 IMPRESSION: 1. Acute moderate extent pulmonary embolism. 2. Acute right heart strain. 3. Occlusive index at 45%. 4. 5 cm right lower lobe lesion, probably lung cancer. However, an unusual appearing pneumonia is possible and short-term reevaluation with CT chest with IV contrast is advised. N.B. : The above information has been verbally conveyed by Timothy Desai MD to Crystal Brooks MD, on 08/03/2020 19:35:44 (ET). Electronically Signed: Timothy Desai MD at 19:41 EST Tel , Service support , Assessment/Plan All Active Problems (Last Updated 03/03/20 @ 15:13 by Sherry Stanford) Bilateral pulmonary embolism (Acute) Right lower lobe lung mass (Acute) Altered mental status (Acute) Accelerated hypertension (Acute) Chest pressure (Acute) Chest pain (Resolved) RECOMMENDATIONS: 1. Continue anticoagulation. Okay to transition to a 10 a inhibitor 2. Obtain echocardiogram. No indication for lower extremity Dopplers 3. Walking oximetry prior to discharge 4. Anticipate follow-up CT scan in 1 month with possible work-up as an outpatient 5. Okay to continue with baseline medications. IMPRESSIONS: 1. Acute hypoxic respiratory insufficiency secondary to submassive PE Patient with bilateral obstructive lesions in the setting of elevated chronic pulmonary artery pressures. Patient would qualify as a submassive PE secondary to elevated BNP with bilateral findings. Unclear if right lower lobe lesion is secondary to blood clots versus malignancy. Malignancy would increase the risk of PE. 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 Patient should have an echocardiogram. Wean oxygen as tolerated. Patient will need a walking oximetry prior to discharge. Anticipate discharge once patient can tolerate ambulation without supplemental oxygen. 2. Right lower lobe lung mass Patient with relatively low risk factors excluding age. Patient is a non- smoker. Positioning could be consistent with a metastatic lesion, but routine screening has been completed. Anticipate treatment of PE while in the hospital. Follow-up with a CT scan in a month. If still present, patient does have good functional status and is willing to be evaluated for advanced measures such as chemotherapy, surgery or radiation if indicated. 3. CAD status post CABG/hypertension/hyperlipidemia/history of mitral valve replacement/Parkinson's Complicates care, management, recovery and prognosis. Okay to continue with baseline medications from my perspective. Continue Parkinson's medications to avoid falls. Patient may benefit from PT/OT evaluation for falls as he will require anticoagulation on discharge and will be prone to falls. Inpatient E&M: 30349 Init Hosp L3
[2020-08-04] MEDS: Metoprolol Tartrate 25 MG Tablet 12.5 MG PO ×2 (10:18→22:55)
[2020-08-04] MEDS: Acetaminophen 325 MG Tablet 650 MG PO ×2 (10:18→22:57)
[2020-08-04] MEDS: Loratadine 10 MG Tablet PO (10:18)
[2020-08-04] MEDS: Pantoprazole Sodium 40 MG Tablet PO (10:19)
[2020-08-04] MEDS: Lisinopril 10 MG Tablet PO (10:19)
[2020-08-04] MEDS: hydroCHLOROthiazide 25 MG Tablet PO (10:19)
[2020-08-04] MEDS: Potassium Chloride Oral Tablet 20 MEQ PO (10:19)
[2020-08-04] MEDS: Fluticasone 0.05% 1 SPRAY NASAL.SRY 2 SPRAY NASAL (10:19)
[2020-08-04 10:38] LABS: Partial Thromboplast Time 56.5 Seconds (24.1-36.2)
--- NOTE | 2020-08-04 10:38 | EKG12_ITS ---
Test Reason : CP Blood Pressure : / mmHG Vent. Rate : 088 BPM Atrial Rate : 088 BPM P-R Int : 186 ms QRS Dur : 094 ms QT Int : 362 ms P-R-T Axes : 045 -14 013 degrees QTc Int : 438 ms Normal sinus rhythm Inferior infarct , age undetermined , cannot be excluded Abnormal ECG Confirmed by AARON PEARCE, DEVON ([id number]), news copy editor ROCKY PICHARDO ([id number]) on 08/07/2020 1:29:12 PM Referred By: ASHLEY Confirmed By:DEVON WALKER MD
[2020-08-04] MEDS: Nitroglycerin (INPATIENT USE) 0.4 MG TAB.SUBL SUBLINGUAL ×2 (10:45→10:54)
[2020-08-04] MEDS: 0.9% Saline Lock 10 ML Syringe IV ×2 (11:18→18:25)
[2020-08-04] MEDS: Ondansetron 4 MG/2 ML Vial IV (11:18)
[2020-08-04] MEDS: Calcium Carbonate 500 MG Tablet 1000 MG PO (11:40)
--- NOTE | 2020-08-04 12:03 | CASEMGMT ---
BRITANY MERCHANT assessment: Face to Face with patient for initial transition planning/care coordination assessment. BRITANY MERCHANT introduced self and role at [facility], pt voices understanding and consents to assessment at this time. Pt is sitting up in chair in no distress on 2L nc at this time. Pt is A/Ox4 at this time and answers questions appropriately at this time. Pt's is at bedside and assists with assessment as well. Care providers, pharmacy, and demographics verified at this time. Presentation: CP, SOB on and off for 1 week. Left sided CP radiates to left arm. Worse w/ exertion Admitting dx: Bilat PE PCP: Corby Specialists: Moodnikolai, cardio; Ralph, derm Preferred Pharmacy: [facility] Insurance: [facility] A/B, [employer] Prescription Benefit: [facility] D, pt to be placed on Xarelto at discharge. Pt states has been on this in the past and has a bottle at home but states it's . This BRITANY MERCHANT advised pt/ not to use those meds and provided with a Xarelto 30 day free coupon at this time, voice understanding. Living Will/HPOA: Pt states has LW/HPOA and is aware that they are on file at [facility] at this time. Pt states his , María Elena Dill, is HPOA. LNOK: María Elena Dill, /HPOA Living Arrangements: Pt states lives with in 2 story home with a couple steps in and states no concerns at home at this time. Pt states is independent with ADL's. Transportation: Pt states drives self and states no transportation concerns at this time. DME/HHC: Pt states has the following DME: cane, walker, and grab bars in tub and by toilet. Pt states no need for any further DME at this time. Pt provided with a list of local DME companies at this time. Pt states no hx of HHC or SNF in the past. Pt states no concerns with going home at time of discharge. Pt states is retired. Pt states does not smoke cigarettes or drink ETOH. Pt states no further concerns/needs at this time. CM to follow for any further discharge planning/needs. Advised pt to ask for CM if any further questions/concerns/needs arise, voices understanding. Pt Goal: Home Plan: [place] BRITANY MERCHANT
[2020-08-04] MEDS: Rivaroxaban 15 MG Tablet PO (18:25)
[2020-08-04] MEDS: Glucerna Shake 120 ML LIQUID PO (18:29)
--- NOTE | 2020-08-04 19:11 | PN_ITS ---
Patient Problems: Active and Suspected Problems (Last Updated 03/03/20 @ 15:13 by Sherry Stanford) Bilateral pulmonary embolism (Acute) Right lower lobe lung mass (Acute) Accelerated hypertension (Acute) Subjective: Patient was seen and examined today, I discussed his care with pulmonary medicine today, I stop the patient's IV heparin and placed him on Xarelto which she has been on before in the past. Patient remains on low-flow nasal cannula oxygen, patient's echocardiogram showed moderate pulmonary hypertension with a normal EF. - Physical Exam Vitals/I&O's: Vital Signs Temp Pulse Resp BP Pulse Ox 98.0 F 63 18 101/52 L 96 08/04/20 14:25 08/04/20 16:00 08/04/20 14:25 08/04/20 14:25 08/04/20 14:25 Oxygen Flow Rate (L/min) 2 Oxygen Delivery Method Nasal Cannula Weight: 70.5 kg Body Mass Index (BMI) 27.5 Intake and Output for Last 24 Hours 08/02/20 08/03/20 08/04/20 23:59 23:59 23:59 Intake Total 555 / 555 1144.28 / 1144.28 Output Total 450 / 450 Balance 105 / 105 1144.28 / 1144.28 General: Alert, Oriented x3, Cooperative, Well developed, Well nourished HEENT: Atraumatic, PERRLA, EOMI, Normocephalic Neck: Supple, No JVD, Trachea Midline, Thyroid Normal Size and Texture Lungs: Clear to auscultation, Normal air movement, No rhonchi, No wheeze, No rales Cardiovascular: Regular rate, Regular Rhythm, Normal S1, Normal S2, No murmurs, PMI Normal, No rub noted, No Gallop Abdomen: Bowel Sounds Present, Soft, Non Tender, Non-Distended Extremities: No clubbing, No cyanosis, No edema, Capillary Refill Less than 3 Seconds Skin: No rashes, No breakdown Musculoskeletal: No Tenderness to Palpation of Joints or Extremities Neurological: Cranial nerves II-XII grossly intact, Neuro grossly intact, Sensory exam intact to light touch and pain, Coordination normal Psych/Mental Status: Normal Affect, Appropriate, Alert and oriented to time, place, person, mood and affect Microbiology Past 72 Hours 08/03/20 17:49 Mucosa - Nose SARS-CoV-2 Antigen (Rapid) - Final Laboratory Results 08/03/20 17:38: APTT 33.7 08/03/20 22:09: Troponin I 0.075 H 08/04/20 01:40: Troponin I 0.064 H 08/04/20 01:40: APTT 120.9 H* 08/04/20 04:46: WBC 11.9 H, RBC 4.01 L, Hgb 10.9 L, Hct 35.0 L, MCV 87.3, MCH 27.2, MCHC 31.1 L, RDW Std Deviation 43.8, RDW Coeff of Dinesh 13.6, Plt Count 215, MPV 9.3, Immature Gran % (Auto) 1.800 H, Neut % (Auto) 62.7, Lymph % (Auto) 13.6 L, [place] % (Auto) 9.1, Eos % (Auto) 11.8 H, Baso % (Auto) 1.0, Absolute Neuts (auto) 7.5, Absolute Lymphs (auto) 1.62, Nucleated RBC % 0 08/04/20 04:46: Sodium 136, Potassium 3.6, Chloride 102, Carbon Dioxide 29.0, Anion Gap 5, BUN 20 H, Creatinine 0.93, Estim Creat Clear Calc 45.89, Est GFR (MDRD) Af Amer 99, Est GFR (MDRD) Non-Af 82, BUN/Creatinine Ratio 21.5 H, Glucose 138 H, Calcium 8.8 08/04/20 04:46: Troponin I 0.058 H 08/04/20 10:16: APTT 56.5 H Current Medications Acetaminophen (Acetaminophen 325 Mg Tablet) 650 mg PO Q6H PRN PRN PRN Reason: Pain 1-10 or Fever Last Admin: 08/04/20 10:18 Dose: 650 mg Documented by: Allopurinol (Allopurinol 100 Mg Tablet) 100 mg PO DAILYCM [facility] Aspirin (Aspirin 81 Mg Tab.Chew) 81 mg PO QHS [facility] Last Admin: 08/03/20 22:51 Dose: 81 mg Documented by: Calcium Carbonate (Calcium Carbonate 500 Mg Tablet) 1,000 mg PO Q4H PRN PRN PRN Reason: gas pressure/bloating Last Admin: 08/04/20 11:40 Dose: 1,000 mg Documented by: Carbidopa/Levodopa (Carbidopa/Levodopa 25/100 Tablet) 1 tablet PO TIDAC [facility] Last Admin: 08/04/20 18:25 Dose: 1 tablet Documented by: Carbidopa/Levodopa (Carbidopa/Levodopa Cr 50/200 Tablet) 1 tablet PO QHS [facility] Last Admin: 08/03/20 23:42 Dose: 1 tablet Documented by: Fluticasone Propionate (Fluticasone 0.05% 1 [place] Nasal.Sry) 2 spray NASAL DAILY [facility] Last Admin: 08/04/20 10:19 Dose: 2 spray Documented by: Hydrochlorothiazide (Hydrochlorothiazide 25 Mg Tablet) 25 mg PO DAILY [facility] Last Admin: 08/04/20 10:19 Dose: 25 mg Documented by: Hydrocortisone (Hydrocortisone 2.5% Crm) 1 applic TOPICAL DAILY PRN PRN Reason: inflammation Lisinopril (Lisinopril 10 Mg Tablet) 10 mg PO DAILY [facility] Last Admin: 08/04/20 10:19 Dose: 10 mg Documented by: Loratadine (Loratadine 10 Mg Tablet) 10 mg PO DAILY [facility] Last Admin: 08/04/20 10:18 Dose: 10 mg Documented by: Metoprolol Tartrate (Metoprolol Tartrate 25 Mg Tablet) 12.5 mg PO BID [facility] Last Admin: 08/04/20 10:18 Dose: 12.5 mg Documented by: Nitroglycerin (Nitroglycerin (Inpatient Use) 0.4 Mg Tab.Subl) 0.4 mg SUBLINGUAL Q5M PRN PRN Reason: CARDIAC/CHEST PAIN Last Admin: 08/04/20 10:54 Dose: 1 tab Documented by: Nutritional Formula (Lactose Free) (Glucerna Shake 120 Ml Liquid) 120 ml PO TIDCM [facility] Last Admin: 08/04/20 18:29 Dose: 120 ml Documented by: Ondansetron HCl (Ondansetron 4 Mg/2 Ml Vial) 4 mg IV Q8H PRN PRN PRN Reason: NAUSEA/VOMITING Last Admin: 08/04/20 11:18 Dose: 4 mg Documented by: Oxycodone HCl (Oxycodone 5 Mg Tablet) 5 mg PO Q4H PRN PRN PRN Reason: Pain Score 4-10 Pantoprazole Sodium (Pantoprazole Sodium 40 Mg Tablet) 40 mg PO DAILY [facility] Last Admin: 08/04/20 10:19 Dose: 40 mg Documented by: Potassium Chloride (Potassium Chloride Oral Tablet 20 Meq) 20 meq PO DAILY [facility] Last Admin: 08/04/20 10:19 Dose: 20 meq Documented by: Rivaroxaban (R[facility]aban 15 Mg Tablet) [facility] Last Admin: 08/04/20 18:25 Dose: 15 mg Documented by: Sodium Chloride (0.9% Saline Lock 10 Ml Syringe) 10 - 40 ml IV UD PRN PRN Reason: SALINE FLUSH Last Admin: 08/04/20 18:25 Dose: 10 ml Documented by: Medical Necessity - Tobacco Use Smoking Status: Never smoker Tobacco Use: Non-smoker Assessment/Plan All Active Problems (Last Updated 03/03/20 @ 15:13 by Sherry Stanford) Bilateral pulmonary embolism (Acute) Right lower lobe lung mass (Acute) Altered mental status (Acute) Accelerated hypertension (Acute) Chest pressure (Acute) Chest pain (Resolved) #1 bilateral pulmonary embolism-continue Xarelto #2 hypoxia secondary to #1 #3 5 cm right lower lobe rounded density presumed to be a mass-this will be worked up as an outpatient by pulmonary medicine. #4 moderate pulmonary hypertension #5 coronary artery disease #6 essential hypertension #7 Parkinson's disease Inpatient E&M: 39476 Subs Hosp L2
[2020-08-04] MEDS: Aspirin 81 MG TAB.CHEW PO (22:56)
[2020-08-04] MEDS: CARBIDOPA/LEVODOPA CR 50/200 Tablet PO (22:56)
[2020-08-05] VITALS (10 sets, daily range): BP systolic 104–123; BP diastolic 50–67; PULSE 59–72; RESP 16–18; TEMP 36.1–36.6; O2SAT 87–98
[2020-08-05] MEDS: Carbidopa/Levodopa 25/100 Tablet PO ×3 (06:36→16:41)
[2020-08-05 07:06] LABS: Hematocrit 35.8 % (40-54); Hemoglobin 10.9 g/dL (13.0-16.5); Mean Corp Hgb Conc 30.4 g/dL (32-36); Mean Corpuscular Volume 88.6 fL (80-94); Mean Platelet Vol. 9.3 fl (6.2-12.0); Platelet Count 251 K/mm3 (150-450); RBC Distribution Width CV 13.8 % (11.6-14.6); RBC Distribution Width SD 44.1 fl (35.1-43.9); Red Blood Count 4.04 M/mm3 (4.6-6.2); White Blood Count 9.3 K/mm3 (4.4-11.0)
--- NOTE | 2020-08-05 08:19 | PN_ITS ---
Patient Problems: Active and Suspected Problems (Last Updated 03/03/20 @ 15:13 by Sherry Stanford) Bilateral pulmonary embolism (Acute) Right lower lobe lung mass (Acute) Accelerated hypertension (Acute) Subjective: Patient did okay overnight. Patient feels subjectively improved compared to previous. Patient was kept on oxygen for comfort with sleep. No epistaxis has been reported. Patient has not had any other bleeding complications. Objective: Echocardiogram showed preserved ejection fraction of 65% with diastolic dysfunction. Patient did have moderate pulmonary hypertension with a PASP of 68 mmHg. - Physical Exam Vitals/I&O's: Vital Signs Temp Pulse Resp BP Pulse Ox 36.5 C L 62 18 104/50 L 97 08/05/20 02:00 08/05/20 07:28 08/05/20 02:00 08/05/20 02:00 08/05/20 02:00 Oxygen Flow Rate (L/min) 2 Oxygen Delivery Method Nasal Cannula Weight: 70.5 kg Body Mass Index (BMI) 27.5 Intake and Output for Last 24 Hours 08/03/20 08/04/20 08/05/20 23:59 23:59 23:59 Intake Total 555 / 555 1144.28 / 1144.28 Output Total 450 / 450 Balance 105 / 105 1144.28 / 1144.28 General: Alert, Oriented x3, Cooperative, No apparent distress HEENT: Atraumatic, PERRLA, EOMI, Normocephalic, - - No scleral icterus or injection noted Oral: Moist Mucosa, No Gingival or Mucosal Lesions/ Ulcerations Neck: Supple, No Nodes, Trachea Midline, JVD, Right Lungs: Clear to auscultation, No rhonchi, No wheeze, No rales, - - Symmetric expansion Cardiovascular: Regular rate, Regular Rhythm, Normal S1, No murmurs, - - Pronounced S2 Abdomen: Bowel Sounds Present, Soft, Non Tender, Non-Distended Extremities: No clubbing, No cyanosis, Edema - Improving lower extremities Skin: - - No change compared to previous Musculoskeletal: No Tenderness to Palpation of Joints or Extremities Lymphatic: No Cervical, Supraclavicular, or Inguinal Adenopathy Neurological: Cranial nerves II-XII grossly intact, Neuro grossly intact, Motor Exam 5/5 strength throughout Psych/Mental Status: Alert and oriented to time, place, person, mood and affect Microbiology Past 72 Hours 08/03/20 17:49 Mucosa - Nose SARS-CoV-2 Antigen (Rapid) - Final Laboratory Results 08/04/20 10:16: APTT 56.5 H 08/05/20 06:56: WBC 9.3, RBC 4.04 L, Hgb 10.9 L, Hct 35.8 L, MCV 88.6, MCH 27.0, MCHC 30.4 L, RDW Std Deviation 44.1 H, RDW Coeff of Dinesh 13.8, Plt Count 251, MPV 9.3 Current Medications Acetaminophen (Acetaminophen 325 Mg Tablet) 650 mg PO Q6H PRN PRN PRN Reason: Pain 1-10 or Fever Last Admin: 08/04/20 22:57 Dose: 650 mg Documented by: Allopurinol (Allopurinol 100 Mg Tablet) [facility] Aspirin (Aspirin 81 Mg Tab.Chew) 81 mg PO QHS [facility] Last Admin: 08/04/20 22:56 Dose: 81 mg Documented by: Calcium Carbonate (Calcium Carbonate 500 Mg Tablet) 1,000 mg PO Q4H PRN PRN PRN Reason: gas pressure/bloating Last Admin: 08/04/20 11:40 Dose: 1,000 mg Documented by: Carbidopa/Levodopa (Carbidopa/Levodopa 25/100 Tablet) 1 tablet PO TIDAC [facility] Last Admin: 08/05/20 06:36 Dose: 1 tablet Documented by: Carbidopa/Levodopa (Carbidopa/Levodopa Cr 50/200 Tablet) 1 tablet PO QHS [facility] Last Admin: 08/04/20 22:56 Dose: 1 tablet Documented by: Fluticasone Propionate (Fluticasone 0.05% 1 [place] Nasal.Sry) 2 spray NASAL DAILY [facility] Last Admin: 08/04/20 10:19 Dose: 2 spray Documented by: Hydrochlorothiazide (Hydrochlorothiazide 25 Mg Tablet) 25 mg PO DAILY [facility] Last Admin: 08/04/20 10:19 Dose: 25 mg Documented by: Hydrocortisone (Hydrocortisone 2.5% Crm) 1 applic TOPICAL DAILY PRN PRN Reason: inflammation Lisinopril (Lisinopril 10 Mg Tablet) 10 mg PO DAILY [facility] Last Admin: 08/04/20 10:19 Dose: 10 mg Documented by: Loratadine (Loratadine 10 Mg Tablet) 10 mg PO DAILY [facility] Last Admin: 08/04/20 10:18 Dose: 10 mg Documented by: Metoprolol Tartrate (Metoprolol Tartrate 25 Mg Tablet) 12.5 mg PO BID [facility] Last Admin: 08/04/20 22:55 Dose: 12.5 mg Documented by: Nitroglycerin (Nitroglycerin (Inpatient Use) 0.4 Mg Tab.Subl) 0.4 mg SUBLINGUAL Q5M PRN PRN Reason: CARDIAC/CHEST PAIN Last Admin: 08/04/20 10:54 Dose: 1 tab Documented by: Nutritional Formula (Lactose Free) (Glucerna Shake 120 Ml Liquid) 120 ml PO TIDCM [facility] Last Admin: 08/04/20 18:29 Dose: 120 ml Documented by: Ondansetron HCl (Ondansetron 4 Mg/2 Ml Vial) 4 mg IV Q8H PRN PRN PRN Reason: NAUSEA/VOMITING Last Admin: 08/04/20 11:18 Dose: 4 mg Documented by: Oxycodone HCl (Oxycodone 5 Mg Tablet) 5 mg PO Q4H PRN PRN PRN Reason: Pain Score 4-10 Pantoprazole Sodium (Pantoprazole Sodium 40 Mg Tablet) 40 mg PO DAILY [facility] Last Admin: 08/04/20 10:19 Dose: 40 mg Documented by: Potassium Chloride (Potassium Chloride Oral Tablet 20 Meq) 20 meq PO DAILY [facility] Last Admin: 08/04/20 10:19 Dose: 20 meq Documented by: Rivaroxaban (Rivaroxaban 15 Mg Tablet) 15 mg PO BIDCM [facility] Last Admin: 08/04/20 18:25 Dose: 15 mg Documented by: Sodium Chloride (0.9% Saline Lock 10 Ml Syringe) 10 - 40 ml IV UD PRN PRN Reason: SALINE FLUSH Last Admin: 08/04/20 18:25 Dose: 10 ml Documented by: Medical Necessity - Tobacco Use Smoking Status: Never smoker Tobacco Use: Non-smoker Assessment/Plan All Active Problems (Last Updated 03/03/20 @ 15:13 by Sherry Stanford) Bilateral pulmonary embolism (Acute) Right lower lobe lung mass (Acute) Altered mental status (Acute) Accelerated hypertension (Acute) Chest pressure (Acute) Chest pain (Resolved) RECOMMENDATIONS: 1. Continue anticoagulation with a 10 a inhibitor indefinitely 2. Repeat limited echocardiogram in 6 to 8 weeks for pulmonary artery pressure 3. Walking oximetry prior to discharge 4. Anticipate follow-up CT scan in 1 month with possible work-up as an outpatient 5. Okay to continue with baseline medications. 6. Possibly okay to discharge if able to tolerate ambulation on room air IMPRESSIONS: 1. Acute hypoxic respiratory insufficiency secondary to submassive PE Patient with bilateral obstructive lesions in the setting of elevated chronic pulmonary artery pressures. Patient would qualify as a submassive PE secondary to elevated BNP with bilateral findings. Unclear if right lower lobe lesion is secondary to blood clots versus malignancy. Malignancy would increase the risk of PE. 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 Echocardiogram shows significantly elevated pulmonary artery pressures. This will have to be reevaluated in 6 to 8 weeks to ensure normalization/improvement. Patient potentially could be discharged if able to tolerate ambulation on room air. 2. Right lower lobe lung mass Patient with relatively low risk factors excluding age. Patient is a non- smoker. Positioning could be consistent with a metastatic lesion, but routine screening has been completed. Anticipate treatment of PE while in the hospital. Follow-up with a CT scan in a month. If still present, patient does have good functional status and is willing to be evaluated for advanced measures such as chemotherapy, surgery or radiation if indicated. 3. CAD status post CABG/hypertension/hyperlipidemia/history of mitral valve replacement/Parkinson's Complicates care, management, recovery and prognosis. Okay to continue with baseline medications from my perspective. Continue Parkinson's medications to avoid falls. Patient may benefit from PT/OT evaluation for falls as he will require anticoagulation on discharge and will be prone to falls. Inpatient E&M: [id number] [facility] Hosp L2
[2020-08-05] MEDS: Rivaroxaban 15 MG Tablet PO (08:45)
[2020-08-05] MEDS: Glucerna Shake 120 ML LIQUID PO ×2 (08:45→11:25)
[2020-08-05] MEDS: Loratadine 10 MG Tablet PO (08:46)
[2020-08-05] MEDS: Potassium Chloride Oral Tablet 20 MEQ PO (08:46)
[2020-08-05] MEDS: Allopurinol 100 MG Tablet PO (08:46)
[2020-08-05] MEDS: Pantoprazole Sodium 40 MG Tablet PO (10:12)
[2020-08-05] MEDS: Fluticasone 0.05% 1 SPRAY NASAL.SRY 2 SPRAY NASAL (10:13)
[2020-08-05] MEDS: hydroCHLOROthiazide 25 MG Tablet PO (10:13)
[2020-08-05] MEDS: Lisinopril 10 MG Tablet PO (10:13)
[2020-08-05] MEDS: Metoprolol Tartrate 25 MG Tablet 12.5 MG PO (10:13)
--- NOTE | 2020-08-05 12:16 | DCINST_ITS ---
- Discharge Diagnoses Current Active Problems: Current Active and Chronic Problems (Last Updated 03/03/20 @ 15:13 by Sherry Stanford) Bilateral pulmonary embolism (Acute) Right lower lobe lung mass (Acute) Accelerated hypertension (Acute) History of mitral valve repair (Chronic ~12/05/96) annuloplasty 31mm Mildred Austin ring 12/05/96 Presence of stent in coronary artery (Chronic ~09/03/14) PTCA/JODY PDA and PTCA/JODY in distal RCA to prox Rt posterior atrioventricular artery 09/03/14 Pure hypercholesterolemia (Chronic) Essential hypertension (Chronic) S/P CABG x 1 (Chronic ~12/05/96) CABG X1- MELENDEZ graft to LAD and Mitral annuloplasty using #31 MM ring November 1996 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 Continue to use your oxygen all the time. Continue to use your incentive spirometer. Continue to remain active and eat healthy. Follow-up with your primary care doctor and also with pulmonology to have your continued oxygen use reevaluated. Be careful of going near open flames whilst on oxygen. Do not smoke whilst on oxygen. Allergies/Adverse Reactions: Allergies amlodipine Adverse Reaction (Severe, Verified 08/03/20 17:38) Swelling of feet isosorbide Adverse Reaction (Severe, Verified 08/03/20 17:38) Swelling of feet losartan Adverse Reaction (Severe, Verified 08/03/20 17:38) Loss of Appetite Wckwuyu-Kpz-Knh Reductase Inhibitor Adverse Reaction (Verified 08/03/20 17:38) Upset Stomach Medications to take at Discharge Aspirin [Aspirin, Baby] 81 mg PO QHS 08/25/14 Fluticasone 0.05% [Flonase Nasal [place]] 2 spray NASAL DAILY 08/24/18 Hydrochlorothiazide [Hctz] 25 mg PO DAILY 08/24/18 Metoprolol Tartrate [Lopressor (beta jenni)] 12.5 mg PO BID 08/24/18 fexofenadine 180 mg tablet 180 mg PO BID 05/31/19 carbidopa 25 mg-levodopa 100 mg tablet 1 tab PO TID 03/03/20 enalapril maleate 20 mg tablet 10 mg PO DAILY tab 03/03/20 ketoconazole 2 % shampoo 1 applic TOPICAL 2XW 03/03/20 nitroglycerin 0.4 mg sublingual tablet 0.4 mg SUBLINGUAL Q5-15M #25 tab 03/03/20 triamcinolone acetonide 0.1 % topical cream 1 applic TOPICAL DAILY PRN 03/03/20 Carbidopa/Levodopa [Carbidopa-Levo ER 50-200 Tab] 50 - 200 tab PO QHS 08/03/20 Pantoprazole Sodium [Protonix] 40 mg PO DAILY 08/03/20 Potassium Chloride 20 meq PO DAILY 08/03/20 Allopurinol 100 mg PO DAILY 08/04/20 Acetaminophen [Tylenol Tablet] 650 mg PO Q6H PRN PRN tablet 08/05/20 Glucerna Shake 120 ml PO TIDCM 30 Days #90 liquid 08/05/20 Rivaroxaban [Xarelto] 15 mg PO BIDCM 20 Days #40 tab 08/05/20 Rivaroxaban [Xarelto] 20 mg PO DAILY 30 Days #30 tab 08/05/20 The following prescriptions were given: Glucerna Shake 120 ml PO TIDCM 30 Days #90 liquid Transmission Status: Pending to [facility] #30 Rivaroxaban [Xarelto] 15 mg PO BIDCM 20 Days #40 tab Transmission Status: Pending to [facility] #30 Rivaroxaban [Xarelto] 20 mg PO DAILY 30 Days #30 tab Transmission Status: Pending to [facility]30 Primary Care Physician: Johnson Tavarez Chi, MD [Primary Care Provider] - Please follow up with your Primary Care Physician in: within 1-2 weeks Test Results: Test results from this visit will be discussed in further detail at your follow- up appointment, if applicable. Please Follow Up With: Mani Nguyen MD When: in 2-4 weeks Proposed Discharge Date: 08/05/20
--- NOTE | 2020-08-05 12:44 | PHA.DC.MC ---
Pharmacy Service has performed discharge medication reconciliation and counseling for this patient. 1. RIVAROXABAN 15MG PO BIDCM X 20 DAYS, THEN 20MG PO DAILYCM THEREAFTER The patient's discharge medication list was reviewed for discrepancies and discrepancies were resolved. Home Medications Aspirin [Aspirin, Baby] 81 mg PO QHS 08/25/14 Fluticasone 0.05% [Flonase Nasal [place]] 2 spray NASAL DAILY 08/24/18 Hydrochlorothiazide [Hctz] 25 mg PO DAILY 08/24/18 Metoprolol Tartrate [Lopressor (beta jenni)] 12.5 mg PO BID 08/24/18 fexofenadine 180 mg tablet 180 mg PO BID 05/31/19 carbidopa 25 mg-levodopa 100 mg tablet 1 tab PO TID 03/03/20 enalapril maleate 20 mg tablet 10 mg PO DAILY tab 03/03/20 ketoconazole 2 % shampoo 1 applic TOPICAL 2XW 03/03/20 nitroglycerin 0.4 mg sublingual tablet 0.4 mg SUBLINGUAL Q5-15M #25 tab 03/03/20 triamcinolone acetonide 0.1 % topical cream 1 applic TOPICAL DAILY PRN 03/03/20 Carbidopa/Levodopa [Carbidopa-Levo ER 50-200 Tab] 50 - 200 tab PO QHS 08/03/20 Pantoprazole Sodium [Protonix] 40 mg PO DAILY 08/03/20 Potassium Chloride 20 meq PO DAILY 08/03/20 Allopurinol 100 mg PO DAILY 08/04/20 Acetaminophen [Tylenol Tablet] 650 mg PO Q6H PRN PRN tab 08/05/20 Glucerna Shake 120 ml PO TIDCM 30 Days #90 liquid 08/05/20 Rivaroxaban [Xarelto] 15 mg PO BIDCM 20 Days #40 tab 08/05/20 Rivaroxaban [Xarelto] 20 mg PO DAILY 30 Days #30 tab 08/05/20 The patient was counseled on the following discharge medications and changes in medications for homegoing were reviewed. The Reason for Use, instructions for use, and potential side effects were reviewed for all new medications. The patient's questions regarding all of their medications were answered. The patient was able to verbally demonstrate an understanding of their discharge medications. Patient counseled by student services dean, Tammy.
--- NOTE | 2020-08-05 12:55 | CASEMGMT ---
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 Bernardo GARG CM Addendum entered by Pattie Franks 08/05/20 15:00: Macarena at [facility] previously notified to cancel oxygen referral for pt at this time, voices understanding. Bernardo GARG CM Addendum entered by Pattie Franks 08/05/20 14:07: Per Claudio, pharmacist at [facility], pt needs a prior auth for Xarelto twice daily script. He states insurance does not want to cover more than one daily. Pt was already provided a Xarelto coupon and this should cover this script for the twice daily and then the next script will be 20mg daily. This RN CM has been attempting to reach [facility] for the last 30-45 minutes in regards to referral without success. This RN CM did speak with Macarena at [facility] and she states she is unable to get through to the [place] office either. Pt is ready for discharge at this time and this RN CM is unable to speak with anybody to verify that order was received and that it will be delivered today so this RN CM back to room and pt chooses [employer] as his 2nd choice at this time. Referral faxed to [facility] at this time and call to Lucia to update, voices understanding. CM to follow. Bernardo GARG CM Original Note: Pt does qualify for 2Lnc continuous home oxygen at discharge and pt states he would like [facility] for home oxygen set up at this time. Referral faxed to [facility] at this time. Pt also to be sent home on Xarelto at discharge. Pt was already provided a Xarelto coupon and med was e-scribed to [facility] previously. This RN CM attempted to reach [facility] to clarify dose but unable to reach on their phones at this time, will attempt again later. Bernardo GARG CM
--- NOTE | 2020-08-05 13:20 | DS.PCM_ITS ---
Discharge Date and Diagnosis - Problem List Patient Problems: Active and Suspected Problems (Last Updated 03/03/20 @ 15:13 by Sherry Stanford) Bilateral pulmonary embolism (Acute) Right lower lobe lung mass (Acute) Accelerated hypertension (Acute) Date of Admission: 08/03/20 Date of Discharge: 08/05/20 - Primary Discharge Diagnosis Acute Problems: Active Problems (Last Updated 03/03/20 @ 15:13 by Sherry Stanford) Acute bilateral submassive PE with mild ventricular strain Acute right lower lobe lung mass, newly diagnosed, unclear etiology for now, likely malignant Hypoxia secondary to acute PE Hypokalemia Elevated troponins secondary to right ventricular strain - Secondary Discharge Diagnosis Chronic Problems: Chronic Problems (Last Updated 03/03/20 @ 15:13 by Sherry Stanford) History of mitral valve repair (Chronic ~12/05/96) annuloplasty 31mm Mildred Austin ring 12/05/96 Presence of stent in coronary artery (Chronic ~09/03/14) PTCA/JODY PDA and PTCA/JODY in distal RCA to prox Rt posterior atrioventricular artery 09/03/14 Pure hypercholesterolemia (Chronic) Essential hypertension (Chronic) Non-rheumatic mitral regurgitation (Chronic) Atherosclerotic heart disease of [place] coronary artery without angina pectoris (Chronic) Encounter for long-term current use of high risk medication (Chronic) Carotid bruit (Chronic) Palpitations (Chronic) S/P CABG x 1 (Chronic ~12/05/96) CABG X1- MELENDEZ graft to LAD and Mitral annuloplasty using #31 MM ring November 1996 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 Unclear etiology refer to CT chest with IV contrast for more definitive evaluation. Chest wall or pleural disease is also in the differential diagnosis. Electronically Signed: Timothy Desai MD at 18:11 EST Tel , Service support , Chest CTA 08/03/20 18:54 IMPRESSION: 1. Acute moderate extent pulmonary embolism. 2. Acute right heart strain. 3. Occlusive index at 45%. 4. 5 cm right lower lobe lesion, probably lung cancer. However, an unusual appearing pneumonia is possible and short-term reevaluation with CT chest with IV contrast is advised. N.B. : The above information has been verbally conveyed by Timothy Desai MD to Crystal Brooks MD, on 08/03/2020 19:35:44 (ET). Electronically Signed: Timothy Desai MD at 19:41 EST Tel , Service support , ADDENDUM: 08/03/201947 IMPRESSION: 1. Acute moderate extent pulmonary embolism. 2. Acute right heart strain. 3. Occlusive index at 45%. 4. 5 cm right lower lobe lesion, probably lung cancer. However, an unusual appearing pneumonia is possible and short-term reevaluation with CT chest with IV contrast is advised. N.B. : The above information has been verbally conveyed by Timothy Desai MD to Crystal Brooks MD, on 08/03/2020 19:35:44 (ET). Electronically Signed: Timothy Desai MD at 19:41 EST Tel , Service support , Pulmonology Operations: None Procedures: 2-D Echocardiogram Summary of Care Provided: The patient is a 85 year old M with multiple past medical history who comes in with shortness of breath ongoing for several days, worse with exertion, relieved by rest. He was associated with some chest pressure. Patient is not on oxygen at home. He was found to saturate 95% on 2 L of oxygen. He also had hypokalemia and elevated creatinine 1.24. CTA of the chest showed moderately extensive bilateral PE in the upper and lower lobes bilaterally with right ventricular strain and a 5 cm right lower lobe density which is thought to be due to a presumed mass. Chest x-ray showed a right lung 3 cm masslike lesion. Patient was started on heparin drip, pulmonology was consulted. He was also admitted with a potassium of 3.3 that was replaced. He had slight elevation in his troponins likely secondary to demand/biventricular strain. 2D echo done showed an EF of 65%, stage I diastolic dysfunction. Patient was transitioned to [facility]. He was evaluated for home oxygen and qualified for discharge with oxygen. He will follow-up with pulmonology with follow-up CT scan in 1 month. Patient Problems: Active and Suspected Problems (Last Updated 03/03/20 @ 15:13 by Sherry Stanford) Bilateral pulmonary embolism (Acute) Right lower lobe lung mass (Acute) Accelerated hypertension (Acute) Subjective: On the day of discharge, patient was seen and examined. He feels improved. He was evaluated for home oxygen and qualified to be discharged on oxygen with 2 L of oxygen. Objective: Physical exam: General: Alert, Oriented x3, Cooperative, Well developed, Well nourished, on 2 L oxygen HEENT: Atraumatic, PERRLA, EOMI, Normocephalic Neck: Supple, No JVD, Trachea Midline, Thyroid Normal Size and Texture Lungs: Diminished air entry, no added sounds Cardiovascular: Regular rate, Regular Rhythm, Normal S1, Normal S2, No murmurs, PMI Normal, No rub noted, No Gallop Abdomen: Bowel Sounds Present, Soft, Non Tender, Non-Distended Extremities: No bilateral leg edema Skin: No rashes, No breakdown Musculoskeletal: No Tenderness to Palpation of Joints or Extremities Neurological: Cranial nerves II-XII grossly intact, Neuro grossly intact, Sensory exam intact to light touch and pain, Coordination normal Psych/Mental Status: Normal Affect, Appropriate, Alert and oriented to time, place, person, mood and affect - Physical Exam Vitals/I&O's: Vital Signs Temp Pulse Resp BP Pulse Ox 97.0 F L 72 16 123/67 H 87 08/05/20 08:00 08/05/20 12:00 08/05/20 08:00 08/05/20 10:13 08/05/20 10:52 Oxygen Flow Rate (L/min) [ 2 AMBULATION with Oxygen] Oxygen Flow Rate (L/min) 2 Oxygen Delivery Method Room Air Weight: 70.5 kg Body Mass Index (BMI) 27.5 Intake and Output for Last 24 Hours 08/03/20 08/04/20 08/05/20 23:59 23:59 23:59 Intake Total 555 / 555 1144.28 / 1144.28 Output Total 450 / 450 Balance 105 / 105 1144.28 / 1144.28 Microbiology Past 72 Hours 08/03/20 17:49 Mucosa - Nose SARS-CoV-2 Antigen (Rapid) - Final Laboratory Results 08/05/20 06:56: WBC 9.3, RBC 4.04 L, Hgb 10.9 L, Hct 35.8 L, MCV 88.6, MCH 27.0, MCHC 30.4 L, RDW Std Deviation 44.1 H, RDW Coeff of Dinesh 13.8, Plt Count 251, MPV 9.3 Current Medications Acetaminophen (Acetaminophen 325 Mg Tablet) 650 mg PO Q6H PRN PRN PRN Reason: Pain 1-10 or Fever Last Admin: 08/04/20 22:57 Dose: 650 mg Documented by: Allopurinol (Allopurinol 100 Mg Tablet) [facility] Last Admin: 08/05/20 08:46 Dose: 100 mg Documented by: Aspirin (Aspirin 81 Mg Tab.Chew) 81 mg PO QHS [facility] Last Admin: 08/04/20 22:56 Dose: 81 mg Documented by: Calcium Carbonate (Calcium Carbonate 500 Mg Tablet) 1,000 mg PO Q4H PRN PRN PRN Reason: gas pressure/bloating Last Admin: 08/04/20 11:40 Dose: 1,000 mg Documented by: Carbidopa/Levodopa (Carbidopa/Levodopa 25/100 Tablet) 1 tablet PO TIDAC [facility] Last Admin: 08/05/20 11:25 Dose: 1 tablet Documented by: Carbidopa/Levodopa (Carbidopa/Levodopa Cr 50/200 Tablet) 1 tablet PO QHS [facility] Last Admin: 08/04/20 22:56 Dose: 1 tablet Documented by: Fluticasone Propionate (Fluticasone 0.05% 1 [place] Nasal.Sry) 2 spray NASAL DAILY [facility] Last Admin: 08/05/20 10:13 Dose: 2 spray Documented by: Hydrochlorothiazide (Hydrochlorothiazide 25 Mg Tablet) 25 mg PO DAILY [facility] Last Admin: 08/05/20 10:13 Dose: 25 mg Documented by: Hydrocortisone (Hydrocortisone 2.5% Crm) 1 applic TOPICAL DAILY PRN PRN Reason: inflammation Lisinopril (Lisinopril 10 Mg Tablet) 10 mg PO DAILY [facility] Last Admin: 08/05/20 10:13 Dose: 10 mg Documented by: Loratadine (Loratadine 10 Mg Tablet) 10 mg PO DAILY [facility] Last Admin: 08/05/20 08:46 Dose: 10 mg Documented by: Metoprolol Tartrate (Metoprolol Tartrate 25 Mg Tablet) 12.5 mg PO BID [facility] Last Admin: 08/05/20 10:13 Dose: 12.5 mg Documented by: Nitroglycerin (Nitroglycerin (Inpatient Use) 0.4 Mg Tab.Subl) 0.4 mg SUBLINGUAL Q5M PRN PRN Reason: CARDIAC/CHEST PAIN Last Admin: 08/04/20 10:54 Dose: 1 tab Documented by: Nutritional Formula (Lactose Free) (Glucerna Shake 120 Ml Liquid) 120 ml PO TIDCM [facility] Last Admin: 08/05/20 11:25 Dose: 120 ml Documented by: Ondansetron HCl (Ondansetron 4 Mg/2 Ml Vial) 4 mg IV Q8H PRN PRN PRN Reason: NAUSEA/VOMITING Last Admin: 08/04/20 11:18 Dose: 4 mg Documented by: Oxycodone HCl (Oxycodone 5 Mg Tablet) 5 mg PO Q4H PRN PRN PRN Reason: Pain Score 4-10 Pantoprazole Sodium (Pantoprazole Sodium 40 Mg Tablet) 40 mg PO DAILY [facility] Last Admin: 08/05/20 10:12 Dose: 40 mg Documented by: Potassium Chloride (Potassium Chloride Oral Tablet 20 Meq) 20 meq PO DAILY [facility] Last Admin: 08/05/20 08:46 Dose: 20 meq Documented by: Rivaroxaban (Rivaroxaban 15 Mg Tablet) [facility] Last Admin: 08/05/20 08:45 Dose: 15 mg Documented by: Sodium Chloride (0.9% Saline Lock 10 Ml Syringe) 10 - 40 ml IV UD PRN PRN Reason: SALINE FLUSH Last Admin: 08/04/20 18:25 Dose: 10 ml Documented by: Discharge Diet: Low fat/ Low Cholesterol, 2000 mg Sodium Diet, Carb Control Diet Discharge Activity: Return to Normal Activity Home Medications: Medications to take at Discharge Aspirin [Aspirin, Baby] 81 mg PO QHS 08/25/14 Fluticasone 0.05% [Flonase Nasal [place]] 2 spray NASAL DAILY 08/24/18 Hydrochlorothiazide [Hctz] 25 mg PO DAILY 08/24/18 Metoprolol Tartrate [Lopressor (beta jenni)] 12.5 mg PO BID 08/24/18 fexofenadine 180 mg tablet 180 mg PO BID 05/31/19 carbidopa 25 mg-levodopa 100 mg tablet 1 tab PO TID 03/03/20 enalapril maleate 20 mg tablet 10 mg PO DAILY tab 03/03/20 ketoconazole 2 % shampoo 1 applic TOPICAL 2XW 03/03/20 nitroglycerin 0.4 mg sublingual tablet 0.4 mg SUBLINGUAL Q5-15M #25 tab 03/03/20 triamcinolone acetonide 0.1 % topical cream 1 applic TOPICAL DAILY PRN 03/03/20 Carbidopa/Levodopa [Carbidopa-Levo ER 50-200 Tab] 50 - 200 tab PO QHS 08/03/20 Pantoprazole Sodium [Protonix] 40 mg PO DAILY 08/03/20 Potassium Chloride 20 meq PO DAILY 08/03/20 Allopurinol 100 mg PO DAILY 08/04/20 Acetaminophen [Tylenol Tablet] 650 mg PO Q6H PRN PRN tab 08/05/20 Glucerna Shake 120 ml PO TIDCM 30 Days #90 liquid 08/05/20 Ondansetron [Zofran Odt] 4 mg PO Q8H PRN PRN 4 Days #12 tab 08/05/20 Rivaroxaban [Xarelto] 15 mg PO BIDCM 20 Days #40 tab 08/05/20 Rivaroxaban [Xarelto] 20 mg PO DAILY 30 Days #30 tab 08/05/20 Following Prescriptions Were Given to Patient: Glucerna Shake 120 ml PO TIDCM 30 Days #90 liquid Transmission Status: Received by [facility] Rivaroxaban [Xarelto] 15 mg PO BIDCM 20 Days #40 tab Transmission Status: Received by [facility] Rivaroxaban [Xarelto] 20 mg PO DAILY 30 Days #30 tab Transmission Status: Received by [facility] Ondansetron [Zofran Odt] 4 mg PO Q8H PRN PRN 4 Days #12 tab PRN Reason: Nausea/Vomiting Transmission Status: Received by [facility] Primary Care Physician: Johnson Tavarez Chi, MD [Primary Care Provider] - Please follow up with your Primary Care Physician in: within 1-2 weeks Please Follow Up With: Mani Nguyen MD When: in 2-4 weeks Disposition: Home Minutes spent on discharge:: 40 Patient Condition:: Stable Medical Necessity - Tobacco Use Smoking Status: Never smoker Tobacco Use: Non-smoker Meaningful Use Info Meaningful Use Diagnoses (Choose all that apply): VTE - VTE Anticoag overlap given w/in hospital stay or rx'd at dc?: Yes Pt receive overlap for 5 days?: Yes Inpatient E&M: 63286 Disch Hosp
[2020-08-05] MEDS: Acetaminophen 325 MG Tablet 650 MG PO (14:38)
--- NOTE | 2020-08-07 15:30 | CASEMGMT ---
[facility] Discharge Follow-Up Phone Call. Lace: 10 Strata: 3 Discharge Date: 08/05/20 Adm Dx: Bilat PE Attempted discharge f/u phone call. No answer. Non-identifying VM left for pt to return call for any questions, concerns, needs. Phone number to CHARLES Blankenship RN CM, provided. Sabine YADAV RN CM
== END 2020-08-05 16:49 | disposition home or self-care (01) | DRG 176 ==
LOC: ED 19:45 → PCU 20:25
PROVIDERS: Internal Medicine Critical Care Medicine; Admitting Provider Student in an Organized Health Care Education/Training Program; Emergency Provider Emergency Medicine; PCP Family Medicine Geriatric Medicine; Visit Provider Internal Medicine
DX: I26.99 Other pulmonary embolism without acute cor pulmonale (principal); R91.8 Other nonspecific abnormal finding of lung field; I25.10 Atherosclerotic heart disease of native coronary artery without angina pectoris; I34.0 Nonrheumatic mitral (valve) insufficiency; I27.20 Pulmonary hypertension, unspecified; I11.9 Hypertensive heart disease without heart failure; E11.9 Type 2 diabetes mellitus without complications; E87.6 Hypokalemia; E78.00 Pure hypercholesterolemia, unspecified; G20 Parkinson's disease; R09.02 Hypoxemia; R77.8 Other specified abnormalities of plasma proteins; Z95.1 Presence of aortocoronary bypass graft; Z95.2 Presence of prosthetic heart valve; Z86.711 Personal history of pulmonary embolism; Z86.718 Personal history of other venous thrombosis and embolism; Z79.82 Long term (current) use of aspirin; Z79.01 Long term (current) use of anticoagulants; Z79.899 Other long term (current) drug therapy; Z86.73 Personal history of transient ischemic attack (TIA), and cerebral infarction without residual deficits
CPT/HCPCS: 36415; 71045; 71275; 80048; 83880; 84484; 85025; 85027; 85379; 85730; 87426; 93005; 93306; 97161; 97165; 97802; 99251; 99285; Q9967; A4216; G0463; J2405

== ENCOUNTER → 2020-08-07 14:51 | Outpatient (CLI) | payer MEDICARE, OTHER, SELFPAY ==
[2020-08-03 21:27] VITALS: BMI 27.5
[2020-08-07 18:13] LABS: Anion Gap 5 (5-15); BUN 23 mg/dL (7-18); BUN/Creat Ratio 26.8 RATIO (10-20); Calcium,Total 9.5 mg/dL (8.5-10.1); Chloride 99 mmol/L (98-107); Creatinine, Serum 0.86 mg/dL (0.70-1.30); EST Glomerular Filtration Rate 90 mL/min (>60); Est Glom Filt Rate - Afr Amer 109 mL/min (>60); Glucose 108 mg/dL (74-106); Potassium 3.9 mmol/L (3.5-5.1); Sodium Level 136 mmol/L (136-145)
== END ==
PROVIDERS: PCP Family Medicine Geriatric Medicine; Visit Provider Family Medicine Geriatric Medicine
DX: E87.6 Hypokalemia (principal)
CPT/HCPCS: 36415; 80048

== ENCOUNTER → 2020-08-13 16:35 | Outpatient (CLI) | payer MEDICARE, OTHER, SELFPAY ==
[2020-08-03 21:27] VITALS: BMI 27.5
--- NOTE | 2020-08-13 16:38 | CT_ITS ---
STUDY: CT CHEST WITHOUT CONTRAST REASON FOR EXAM: Male, 85 years old. LUNG MASS RADIATION DOSAGE (If Supplied By Facility): CTDIvol = ( 12.54 ) mGy, DLP = ( 448.94 ) mGycm TECHNIQUE: Transaxial imaging was performed without the administration of intravenous contrast material. Multiplanar coronal and sagittal images were reformatted. Individualized dose optimization techniques were used for this CT. COMPARISON: Comparison is made with prior examination dated 08/03/2020. FINDINGS: There is a 5.5 cm x 5.3 cm x 4.6 cm mass in the posterior aspect of the apical segment of the right lower lobe. Minimal right pleural thickening. Stable increased markings in the right lower lobe suggestive of the scarring. There are calcifications of the coronary arteries. Sternal cerclage wires and vascular clips are present from a prior sternotomy and coronary artery bypass graft procedure (CABG). There are multiple small lymph nodes within the mediastinum, which are normal in size and morphology most compatible with reactive lymph hyperplasia. Mildly enlarged right hilar lymph nodes. Normal unenhanced pulmonary arteries. There is atherosclerotic calcification of the aortic arch with tortuosity and elongation of the aortic arch and descending thoracic aorta. There are mild degenerative changes of the thoracic spine. Hiatal hernia. There is a 2.1 cm cyst in the anterior aspect of the left kidney. CT/Chest without Contrast IMPRESSION: Essentially stable mass in the apical segment of the right lower lobe with surrounding markings suggestive of scarring. There has been essentially no change. Electronically Signed: Scar Peña MD at 8:50 EST , Service support ,
== END ==
PROVIDERS: PCP Family Medicine Geriatric Medicine; Referring Provider Family Medicine Geriatric Medicine; Visit Provider Family Medicine Geriatric Medicine
DX: R91.8 Other nonspecific abnormal finding of lung field (principal)
CPT/HCPCS: 71250

== ENCOUNTER → 2020-09-08 | Outpatient (CLI) | payer MEDICARE, OTHER, SELFPAY ==
[2020-08-03 21:27] VITALS: BMI 27.5
== END | disposition home or self-care (01) ==
LOC: LABSPEC 16:13
PROVIDERS: PCP Family Medicine Geriatric Medicine; Visit Provider Family Medicine Geriatric Medicine
DX: N39.0 Urinary tract infection, site not specified (principal)
CPT/HCPCS: 87086; 87088

== ENCOUNTER 2020-09-16 18:09 | Inpatient (IN) | payer MEDICARE, OTHER, SELFPAY ==
[2020-08-03 21:27] VITALS: BMI 27.5
[2020-09-16] VITALS (8 sets, daily range): BP systolic 131–179; BP diastolic 54–71; PULSE 72–78; RESP 18–23; TEMP 36.5–36.6; O2SAT 94–98; BMI 28.9; BMI 26.3
--- NOTE | 2020-09-16 18:21 | CT_ITS ---
STUDY: CT BRAIN WITHOUT CONTRAST REASON FOR EXAM: Male, 85 years old. altered mental status RADIATION DOSAGE (If Supplied By Facility): CTDIvol = ( 44.99 ) mGy, DLP = ( 745.49 ) mGycm TECHNIQUE: Transaxial CT imaging of the brain was performed without administration of intravenous contrast material. Individualized dose optimization techniques were used for this CT. COMPARISON: 04/14/2019 FINDINGS: Normal soft tissue structures. Normal calvarium. Calcification of cavernous carotids. Mild atrophy and moderate periventricular white matter ischemic changes.. Normal white matter tracts of the cerebral hemispheres. There are tiny hypoattenuated densities in the head of left caudate nucleus and thalamus consistent with lacunar infarcts of indeterminate age.. There is a tiny hypoattenuated density in the right occipital lobe likely due to old infarct. Normal brainstem. There are 2 hypodense lesions in the right cerebellar hemisphere without mass effect likely ischemic. Neoplasm less likely but not excluded. There is no intracranial hemorrhage. Normal visualized paranasal sinuses. The lesion in left thalamus is old. The others are new CT/Brain/Head without Contrast IMPRESSION: Atrophy and periventricular white matter ischemic changes.. Multiple hypoattenuated lesions the largest in the right cerebellar hemisphere likely ischemic. Neoplasm not entirely excluded however MRI recommended for more definitive evaluation Electronically Signed: Randolph Mcleod MD at 19:26 EDT , Service support ,
--- NOTE | 2020-09-16 18:21 | EKG12_ITS ---
Test Reason : DYSRHYTHMIA Blood Pressure : / mmHG Vent. Rate : 073 BPM Atrial Rate : 073 BPM P-R Int : 182 ms QRS Dur : 094 ms QT Int : 380 ms P-R-T Axes : 069 -04 022 degrees QTc Int : 418 ms Normal sinus rhythm Inferior-posterior infarct , age undetermined, cannot be excluded Abnormal ECG Confirmed by AARON PEARCE, DEVON ([id number]), state editor TYLER PEÑA ([id number]) on 09/18/2020 9:52:15 AM Referred By: ASHLEY Confirmed By:DEVON WALKER MD
--- NOTE | 2020-09-16 18:23 | ED.VIS.GEN ---
History of Present Illness Chief Complaint: General Illness Informant: Patient, Family Onset: Days Context: Gradual Onset Current Severity: Mild Maximum Severity: Moderate Narrative: Patient presents with secondary to generalized weakness and slower movements and speech. Patient denies any falls or injuries. Patient does have a history of Parkinson's but he reports no recent changes to his medications. He was admitted approximately a month ago with bilateral PEs and was found to have a right lung mass. They are still undergoing outpatient work-up for the lung mass and is currently on Xarelto for pulmonary emboli. Patient denies any pain at this time. states he has been eating and drinking appropriately. He has still been able to get around the home on his own but is much slower than his normal baseline. - Past Medical History (1) Bilateral pulmonary embolism Status: Chronic (2) Right lower lobe lung mass Status: Chronic (3) Atherosclerotic heart disease of [place] coronary artery without angina pectoris Status: Chronic (4) 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 (5) Essential hypertension Status: Chronic (6) History of mitral valve repair Status: Chronic Comment: annuloplasty 31mm Mildred Austin ring 12/05/96 (7) Presence of stent in coronary artery Status: Chronic Comment: PTCA/JODY PDA and PTCA/JODY in distal RCA to prox Rt posterior atrioventricular artery 09/03/14 (8) Pure hypercholesterolemia Status: Chronic (9) S/P CABG x 1 Status: Chronic Comment: CABG X1- MELENDEZ graft to LAD and Mitral annuloplasty using #31 MM ring November 1996 Past Medical History - Allergies and Home Meds Allergies/Adverse Reactions: Allergies amlodipine Adverse Reaction (Severe, Verified 09/16/20 18:15) Swelling of feet isosorbide Adverse Reaction (Severe, Verified 09/16/20 18:15) Swelling of feet losartan Adverse Reaction (Severe, Verified 09/16/20 18:15) Loss of Appetite Kylvibd-Hdi-Bwq Reductase Inhibitor Adverse Reaction (Verified 09/16/20 18:15) Upset Stomach Prior records reviewed: Yes Surgical History: angioplasty, coronary bypass surgery, - Lives: Spouse/ Significant Other Smoking Status: Never smoker - Family History Maternal Family History: Family History (Last Reviewed 03/03/20 @ 15:13 by Sherry Stanford) Father CVA (cerebral vascular accident) Mother No problems noted. Family History: Reports: No pertinent history Paternal Family History: Family History (Last Reviewed 03/03/20 @ 15:13 by Sherry Stanford) Father CVA (cerebral vascular accident) Mother No problems noted. Family History: Reports: Stroke Sibling Family History: Family History (Last Reviewed 03/03/20 @ 15:13 by Sherry Stanford) Father CVA (cerebral vascular accident) Mother No problems noted. Family History: Reports: Heart Disease - Congenital heart abnormality believed to be a coarctation of the aorta Review of Systems General: Denies: Chills, Fever Eyes: Denies: Visual changes - bilaterally ENT: Denies: Bilateral ear pain Cardiovascular: Denies: Chest pain, Palpitations Respiratory: Denies: Dyspnea, Cough Gastrointestinal: Denies: Abdominal pain, Nausea, Vomiting, Diarrhea Genitourinary: Denies: Dysuria Musculoskeletal: Denies: Swelling, Extremity Pain Skin: Denies: Rash Neurological: Reports: Weakness - Generalized weakness. Denies: Headache Hematologic: Denies: Easy bruising, Easy bleeding Allergy: Denies: Uticaria Physical Exam Vital Signs/Narrative: Vital Signs Temp Pulse Resp BP Pulse Ox 09/16/20 18:11 97.7 F L 73 20 H 139/71 H 95 Inital Vital Signs reviewed: Yes General: Well nourished, Well developed Head: Normocephalic ENT: Moist mucous membranes Neck: Supple Cardiovascular: Regular rate, Regular rhythm Respiratory: No distress, CTA bilaterally Abdomen: Soft, Nontender, Normal bowel sounds Extremities: Nontender Skin: Normal color, No rash Neurological: Alert, Oriented x3, Normal Strength, Normal Sensation, - - Slow purposeful speech but answers questions appropriately. No focal neurologic deficits on neuro testing. Psychological: Normal affect Diagnostic/Tx/Re-eval Chest X-Ray - ED: 1 View, Read by ED Physician, - - Right lower lobe mass with atelectasis. Concern for postobstructive pneumonia. Impressions Brain CT 09/16/20 18:21 IMPRESSION: Atrophy and periventricular white matter ischemic changes.. Multiple hypoattenuated lesions the largest in the right cerebellar hemisphere likely ischemic. Neoplasm not entirely excluded however MRI recommended for more definitive evaluation Electronically Signed: Randolph Mcleod MD at 19:26 EDT , Service support , 09/16/20 18:21 Brain/Head without Contrast [CT] Stat 09/16/20 19:22 Chest 1 View (Portable) [RAD] Stat 09/16/20 18:34 Mucosa - Nose SARS-CoV-2 Antigen (Rapid) - Final Laboratory Results 09/16/20 09/16/20 09/16/20 18:20 18:20 18:20 WBC 15.7 H RBC 4.47 L Hgb 11.9 L Hct 38.8 L MCV 86.8 MCH 26.6 L MCHC 30.7 L RDW Std Deviation 47.8 H RDW Coeff of Dinesh 15.1 H Plt Count 251 MPV 10.1 Immature Gran % (Auto) 2.200 H Neut % (Auto) 66.8 Lymph % (Auto) 9.1 L [place] % (Auto) 8.3 Eos % (Auto) 13.2 H Baso % (Auto) 0.4 Absolute Neuts (auto) 10.5 H Absolute Lymphs (auto) 1.43 Nucleated RBC % 0 Differential Comment SEE COMMENT Platelet Estimate ADEQUATE RBC Morphology N CHROM Anisocytosis RARE PT 17.9 H INR 1.6 APTT 29.9 Sodium 136 Potassium 3.8 Chloride 101 Carbon Dioxide 32.0 Anion Gap 3 L BUN 29 H Creatinine 1.07 Estim Creat Clear Calc 39.88 Est GFR (MDRD) Af Amer 84 Est GFR (MDRD) Non-Af 70 BUN/Creatinine Ratio 27.1 H Glucose 135 H Calcium 9.2 Total Bilirubin 1.10 H Direct Bilirubin 0.32 H AST 9 L ALT 7 L Alkaline Phosphatase 41 L Troponin I 0.965 H* Total Protein 7.3 Albumin 3.3 Globulin 4.0 Urine Color Urine Clarity Urine pH Ur Specific [place] Urine Protein Urine Glucose (UA) Urine Ketones Urine Occult Blood Urine Nitrite Urine Bilirubin Urine Urobilinogen Ur Leukocyte Esterase Urine RBC Urine WBC Ur Squamous Epith Cells Urine Bacteria Urine Mucus POC Glucose 09/16/20 09/16/20 18:38 18:50 WBC RBC Hgb Hct MCV MCH MCHC RDW Std Deviation RDW Coeff of Dinesh Plt Count MPV Immature Gran % (Auto) Neut % (Auto) Lymph % (Auto) [place] % (Auto) Eos % (Auto) Baso % (Auto) Absolute Neuts (auto) Absolute Lymphs (auto) Nucleated RBC % Differential Comment Platelet Estimate RBC Morphology Anisocytosis PT INR APTT Sodium Potassium Chloride Carbon Dioxide Anion Gap BUN Creatinine Estim Creat Clear Calc Est GFR (MDRD) Af Amer Est GFR (MDRD) Non-Af BUN/Creatinine Ratio Glucose Calcium Total Bilirubin Direct Bilirubin AST ALT Alkaline Phosphatase Troponin I Total Protein Albumin Globulin Urine Color Straw Urine Clarity Clear Urine pH 6.5 Ur Specific [place] 1.010 Urine Protein Negative Urine Glucose (UA) Normal Urine Ketones Negative Urine Occult Blood Negative Urine Nitrite Negative Urine Bilirubin Negative Urine Urobilinogen Normal Ur Leukocyte Esterase Negative Urine RBC 0 SEEN Urine WBC 0 SEEN Ur Squamous Epith Cells 0 SEEN Urine Bacteria 0 SEEN Urine Mucus 0 SEEN POC Glucose 132 H - EKG Initial EKG Interpretation: Sinus Rhythm - Sinus at [address] change. Old inferior Q waves noted. No significant change when compared to prior study of 08/04/2020 - Medical Decision Making Patient was taken to CT. CT reveals no evidence of acute bleed but does reveal hypodensity in the occiput concerning for either CVA or possible metastatic lesion. EKG is unremarkable but troponin is elevated at 0.96. White blood cell count is elevated at 15. Urinalysis unremarkable. Chest x-ray concerning for possible postobstructive pneumonia. Test results discussed with Dr. Cardoso. At this time plan will be to cycle cardiac enzymes and further evaluate the abnormal findings on his head CT to determine if the elevation in troponin may be secondary to neurologic insult. Patient is ordered antibiotics for post obstructive pneumonia. He is ordered a dose of Decadron secondary to the brain mass. His Xarelto and aspirin were ordered, however patient failed his bedside swallow test. I anticipate we will be placing him on Lovenox instead. Test results all discussed with the patient and at bedside. Dr. Cardoso is evaluating the patient in the emergency room at this time. I will speak with hospitalist regarding admission. - Critical Care Time Critical care time (excluding procedures): 30-74 minutes, Discussing w/Patient &/or Family/Children'S Counselor, Discussing w/Consultants ED Disposition - Plan for ED Patient: Disposition: Acute Care Hospital [facility] Diagnosis: NSTEMI (non-ST elevated myocardial infarction), Postobstructive pneumonia, Occipital mass
[2020-09-16 18:41] LABS: Absolute Lymphocyte Count 1.43 X10^3/uL (0.83-4.51); Absolute Neutrophil Count 10.5 X10^3/uL (2.0-7.7); Basophil# 0.07 X10^3/uL; Basophil% 0.4 % (0-1); Eosinophils% 13.2 % (0-5); Hematocrit 38.8 % (40-54); Hemoglobin 11.9 g/dL (13.0-16.5); Lymphocyte # 1.43 X10^3/ul (4.0); Lymphocyte % 9.1 % (19-41); Mean Corp Hgb Conc 30.7 g/dL (32-36); Mean Corpuscular Hgb 26.6 pg (27.0-32.0); Mean Corpuscular Volume 86.8 fL (80-94); Mean Platelet Vol. 10.1 fl (6.2-12.0); Monocyte# 1.31 X10^3/uL; Monocyte% 8.3 % (0-10); NRBC Flagged by Analyzer 0 % (0-5); Neutrophil # 10.46 X10^3/uL (2.7-7.7); Neutrophil % 66.8 % (47-70); POSITIVE DIFFERENTIAL YES; Platelet Count 251 K/mm3 (150-450); RBC Distribution Width CV 15.1 % (11.6-14.6); RBC Distribution Width SD 47.8 fl (35.1-43.9); Red Blood Count 4.47 M/mm3 (4.6-6.2); White Blood Count 15.7 K/mm3 (4.4-11.0)
[2020-09-16 18:46] LABS: Bedside Glucose 132 mg/dL (70-110)
[2020-09-16 18:56] LABS: International Normalized Ratio 1.6; Prothrombin Time (Protime)PT. 17.9 SECONDS (11.7-14.9)
[2020-09-16 18:57] LABS: Bacteria 0 SEEN /hpf (None Seen); Mucous, Urine 0 SEEN /hpf (<or=2+); Red Blood Cells-Urine 0 SEEN /hpf (0-5); Squamous Epithelial Cells - UA 0 SEEN /hpf (0-5); White Blood Cells 0 SEEN /hpf (0-5)
[2020-09-16 18:57] LABS: Partial Thromboplast Time 29.9 Seconds (24.1-36.2)
[2020-09-16 19:01] LABS: Color, Urine Straw (Yellow); Glucose, Dipstick Normal (Normal); Ketone-Dipstick Negative (Negative); Leukocyte Esterase-Dipstick Negative /ul (Negative); Nitrite-Dipstick Negative (Negative); Occult Blood-Urine Negative /ul (Negative); Protein-Dipstick Negative (Negative); Urine Bilirubin Dipstick Negative (Negative); Urine Clarity Clear (Clear); Urine Urobilinogen Normal (Normal); Urine pH 6.5 (5.0 - 8.0)
[2020-09-16 19:05] LABS: AST(SGOT) 9 U/L (15-37); Alanine Aminotransfer ALT/SGPT 7 U/L (16-61); Albumin, Serum 3.3 g/dL (3.2-5.0); Alkaline Phosphatase 41 U/L (45-117); Anion Gap 3 (5-15); BUN 29 mg/dL (7-18); BUN/Creat Ratio 27.1 RATIO (10-20); Bilirubin, Direct 0.32 mg/dL (0.00-0.30); Calcium,Total 9.2 mg/dL (8.5-10.1); Chloride 101 mmol/L (98-107); Creatinine, Serum 1.07 mg/dL (0.70-1.30); EST Glomerular Filtration Rate 70 mL/min (>60); Est Glom Filt Rate - Afr Amer 84 mL/min (>60); Estimated Creatinine Clearance 39.88 ml/min; Glucose 135 mg/dL (74-106); Potassium 3.8 mmol/L (3.5-5.1); Protein, Total 7.3 g/dL (6.4-8.2); Sodium Level 136 mmol/L (136-145)
[2020-09-16 19:16] LABS: Differential Indicated SCAN CRITERIA MET; Eosinophil# 2.07 X10^3/uL
[2020-09-16 19:19] LABS: Anisocytosis RARE; Platelet Estimate ADEQUATE (ADEQ); Red Cell Morphology N CHROM NORMAL (NORM C&C)
--- NOTE | 2020-09-16 19:22 | RAD_ITS ---
STUDY: X-RAY CHEST REASON FOR EXAM: Male, 85 years old. weakness TECHNIQUE: AP portable COMPARISON: 08/03/2020 FINDINGS: There is persistent masslike consolidative density in the right lower lobe and slightly increasing consolidation. There is mild discoid atelectasis in the right upper lobe.. There is no demonstrated pleural abnormality. Postop change status post median sternotomy and CABG. Normal size heart. Normal mediastinum and sen. Normal visualized pulmonary arteries. Normal visualized aortic arch and descending thoracic aorta. Dorsal spine and shoulders demonstrate degenerative change. Normal visualized ribs, and clavicles.. There is no demonstrated abnormality of the visualized soft tissue structures of the upper abdomen. RAD/Chest 1 View (Portable) IMPRESSION: Persistent nodular density in the right lower lobe with increasing discoid atelectasis in the right upper lobe and consolidation in the right lower lobe Electronically Signed: Randolph Mcleod MD at 20:20 EDT , Service support ,
[2020-09-16] MEDS: dexAMETHasone 10 MG/ML Vial IV (20:08)
[2020-09-16] MEDS: Enoxaparin 80 MG/0.8 ML Syringe 70 MG SC (20:13)
--- NOTE | 2020-09-16 20:17 | CON.PCM_ITS ---
Problem List (1) Abnormal cardiac enzyme level Status: Acute (2) CAD (coronary artery disease) Status: Chronic Qualifiers: Coronary Disease-Associated Artery/Lesion type: council artery [place] vs. 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 (8) Postobstructive pneumonia Status: Acute (9) Pure hypercholesterolemia Status: Chronic (10) Essential hypertension Status: Chronic (11) 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 (12) Abnormal brain CT Status: Acute (13) Altered mental status Status: Acute Reason for Consult Date of Consultation: 09/16/20 History of Present Illness: The patient is a 85 year old male with a history of underlying CAD, status post MELENDEZ to the LAD, status post subsequent RCA PCI/stent, status post mitral valve repair with a 31 mm Mildred-Austin annuloplasty ring, hyperlipidemia, hypertension, diabetes mellitus, who has been undergoing evaluation for concerns of bilateral pulmonary emboli, a right sided lung mass, possible postobstructive pneumonia, and altered mental status who presents for further evaluation from the [facility] emergency department based upon concerns of chest discomfort and abnormal troponin I levels. The patient has been undergoing noncardiac evaluation for his underlying pulmonary related issues. He states he has been treated with anticoagulant therapy with Xarelto as well as antibiotic therapy. He presented to the emerge department based upon concerns of altered mental status/speech and concerns of weakness. He states he has always had some vague discomfort in his chest. He felt based upon his recent pulmonary issue and coughing but this had worsened. He states this is not the same discomfort he had prior to his coronary artery disease revascularization procedures. He has felt short of breath but has not had orthopnea or PND. He has had peripheral pitting edema and states that he has not been wearing his lower extremity support stockings and thus his edema especially on the left side is somewhat more prominent. He does not recall any near-syncope or syncope. In the emergency department he was undergoing evaluation. His troponin I level was noted to be abnormal. His ECG demonstrated sinus rhythm with a possible inferior posterior [place] of indeterminate age without significant change compared to a prior ECG. A chest x-ray suggested a right lower lobe infiltrate/mass. He also underwent a head CT scan which was considered abnormal with respect to hypodense areas of questionable etiology noting a neoplastic disease process could not be excluded. [] Past Medical History Allergies/Adverse Reactions: Allergies amlodipine Adverse Reaction (Severe, Verified 09/16/20 18:15) Swelling of feet isosorbide Adverse Reaction (Severe, Verified 09/16/20 18:15) Swelling of feet losartan Adverse Reaction (Severe, Verified 09/16/20 18:15) Loss of Appetite [id number] Reductase Inhibitor Adverse Reaction (Verified 09/16/20 18:15) Upset Stomach Home Medications: Ambulatory Orders Medication Instructions Recorded Aspirin [Aspirin, Baby] 81 mg PO QHS 08/25/14 Fluticasone 0.05% [Flonase Nasal 2 spray NASAL DAILY 08/24/18 [place]] Hydrochlorothiazide [Hctz] 25 mg PO DAILY 08/24/18 Metoprolol Tartrate [Lopressor 12.5 mg PO BID 08/24/18 (beta jenni)] fexofenadine 180 mg tablet 180 mg PO BID 05/31/19 carbidopa 25 mg-levodopa 100 mg 1 tab PO TID 03/03/20 tablet enalapril maleate 20 mg tablet 10 mg PO DAILY tab 03/03/20 ketoconazole 2 % shampoo 1 applic TOPICAL 2XW 03/03/20 nitroglycerin 0.4 mg sublingual 0.4 mg SUBLINGUAL Q5-15M #25 tab 03/03/20 tablet triamcinolone acetonide 0.1 % 1 applic TOPICAL DAILY PRN 03/03/20 topical cream Carbidopa/Levodopa [Carbidopa-Levo 50 - 200 tab PO QHS 08/03/20 ER 50-200 Tab] Potassium Chloride 20 meq PO DAILY 08/03/20 Allopurinol 100 mg PO DAILY 08/04/20 Acetaminophen [Tylenol Tablet] 650 mg PO Q6H PRN PRN tab 08/05/20 Amoxicillin 4 tablet PO .COMPLEX 09/16/20 Famotidine 40 mg PO DAILY 09/16/20 Ondansetron HCl 4 mg PO Q8H PRN 09/16/20 Rivaroxaban [Xarelto] 20 mg PO DAILY 09/16/20 Past Medical History (Chronic Problems): Chronic Problems (Last Updated 03/03/20 @ 15:13 by Sherry Stanford) Bilateral pulmonary embolism (Chronic) Right lower lobe lung mass (Chronic) CAD (coronary artery disease) (Chronic) History of mitral valve repair (Chronic ~12/05/96) annuloplasty 31mm Mildred Austin ring 12/05/96 Presence of stent in coronary artery (Chronic ~09/03/14) PTCA/JODY PDA and PTCA/JODY in distal RCA to prox Rt posterior atrioventricular artery 09/03/14 Pure hypercholesterolemia (Chronic) Essential hypertension (Chronic) Non-rheumatic mitral regurgitation (Chronic) Atherosclerotic heart disease of council coronary artery without angina pectoris (Chronic) Encounter for long-term current use of high risk medication (Chronic) Carotid bruit (Chronic) Palpitations (Chronic) S/P CABG x 1 (Chronic ~12/05/96) CABG X1- MELENDEZ graft to LAD and Mitral annuloplasty using #31 MM ring November 1996 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) Surgical History: angioplasty, coronary bypass surgery, - Psychiatric History: No pertinent psych hx - *Family History Maternal Family History: Family History (Last Reviewed 03/03/20 @ 15:13 by Sherry Stanford) Father CVA (cerebral vascular accident) Mother No problems noted. History Items: No pertinent history Paternal Family History: Family History (Last Reviewed 03/03/20 @ 15:13 by Sherry Stanford) Father CVA (cerebral vascular accident) Mother No problems noted. History Items: Stroke Sibling Family History: Family History (Last Reviewed 03/03/20 @ 15:13 by Sherry Stanford) Father CVA (cerebral vascular accident) Mother No problems noted. 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 Denies: Fever, Night Sweats Cardiovascular: Reports: Chest Discomfort, Shortness of Breath, Peripheral Edema. Denies: Orthopnea, PND, Palpitations, Lightheadedness, Dizziness, Near Syncope, Syncope Respiratory: Reports: Cough, Shortness of Breath. Denies: Hemoptysis Gastrointestinal: Denies: Hematemesis, Hematochezia, Melena Genitourinary: Denies: Dysuria, Hematuria Skin: Denies: Rash Subjectve: This is an 85-year-old white male who appears to be resting comfortably at the moment in no acute distress. Objective: Vital Signs Temp Pulse Resp BP Pulse Ox 97.7 F L 76 18 170/68 H 98 09/16/20 18:11 09/16/20 20:15 09/16/20 20:15 09/16/20 20:15 09/16/20 20:15 Oxygen Delivery Method Room Air Weight: 163 lb 5.8 oz Body Mass Index (BMI) 28.9 Finger Stick Blood Glucose 132 General: Awake, Alert, Oriented x 3, Cooperative, No Acute Distress HEENT: Atraumatic, Normocephalic, PERRL, EOMI, Sclera Non Icteric Neck: Supple, Good ROM, No JVD Lungs: Diminished Right Base Cardiovascular: Regular Rhythm, Normal S1, Normal S2 Abdomen: Bowel Sounds Present, Soft Extremities: Mild RLE Edema, Moderate LLE Edema Psych/Mental Status: Flat Affect 09/16/20 18:20: WBC 15.7 H, RBC 4.47 L, Hgb 11.9 L, Hct 38.8 L, MCV 86.8, MCH 26.6 L, MCHC 30.7 L, Plt Count 251, MPV 10.1, Immature Gran % (Auto) 2.200 H, Neut % (Auto) 66.8, Lymph % (Auto) 9.1 L, [place] % (Auto) 8.3, Eos % (Auto) 13.2 H , Baso % (Auto) 0.4, Absolute Neuts (auto) 10.5 H, Nucleated RBC % 0 09/16/20 18:20: PT 17.9 H, INR 1.6, APTT 29.9 09/16/20 18:20: Sodium 136, Potassium 3.8, Chloride 101, Carbon Dioxide 32.0, Anion Gap 3 L, BUN 29 H, Creatinine 1.07, Est GFR (MDRD) Af Amer 84, Est GFR (MDRD) Non-Af 70, BUN/Creatinine Ratio 27.1 H, Glucose 135 H, Calcium 9.2, Total Bilirubin 1.10 H, Direct Bilirubin 0.32 H, Troponin I 0.965 H* 09/16/20 18:50: Urine Color Straw, Urine Clarity Clear, Urine pH 6.5, Ur Specific [place] 1.010, Urine Protein Negative, Urine Glucose (UA) Normal, Urine Ketones Negative, Urine Occult Blood Negative, Urine Nitrite Negative, Urine Bilirubin Negative, Urine Urobilinogen Normal, Ur Leukocyte Esterase Negative, Urine RBC 0 SEEN, Urine WBC 0 SEEN Rhythm: Sinus rhythm EKG: As noted above ECHO: 08-04-2020 Interpretation Summary Normal LV size. Moderate concentric left ventricular hypertrophy. Left ventricular systolic function is normal. The estimated ejection fraction is 65 %. Pulmonary artery systolic pressure is 68 mmHg. Moderate pulmonary hypertension. Stage 1 diastolic dysfunction. Mild focal aortic valve calcification. Stress Test Report Date: 06/23/2017 Procedure: Pharmacologic stress nuclear imaging study Indications: Chest pain; CAD; PCI Consent: Per the patient Procedure: The patient underwent pharmacologic panties Regadenoson) evaluation with a peak heart rate of 98 bpm (71% predicted maximal heart rate) with a peak blood pressure 146/80 mmHg. The baseline ECG demonstrated normal sinus rhythm. The peak pharmacologic ECG demonstrated no obvious ECG changes. There was a rare PVC during recovery. There was no report of chest discomfort during pharmacologic infusion or recovery. The examination was discontinued secondary to completion of protocol. Impression: 1. Pharmacologic (Regadenoson) evaluation 2. Peak pharmacologic ECG with no obvious ECG changes 3. Rare PVC during recovery 4. Nuclear images pending Myocardial perfusion imaging study: Technique: The patient was injected with 11.8 mCi of technetium 99m Cardiolite and subsequently rest SPECT Cardiolite nuclear imaging was obtained in the horizontal long, vertical long, and short axis views. The patient underwent pharmacologic panties Regadenoson) evaluation with a peak heart rate of 98 bpm (71% predicted maximal heart rate) with a peak blood pressure 146/80 mmHg. The patient was injected with 35.0 mCi of technetium 99m Cardiolite and subsequently stress SPECT Cardiolite nuclear imaging pain in the horizontal long, vertical long, and short axis views. A gated Cardiolite study at peak stress was obtained. Interpretation: Rest and stress SPECT Cardiolite nuclear imaging status post realignment, normalization, and attenuation correction, demonstrates areas of extracardiac/g astrointestinal tracer uptake near the inferior segments. Otherwise there appears to be relative uniform tracer uptake. There is end systolic thickening and brightening. The gated Cardiolite study demonstrates myocardial thickening and inward wall motion. The reported LVEF is 74%. Impression: 1. Rest and stress SPECT Cardiolite nuclear imaging demonstrates relative uniform tracer uptake and myocardial perfusion appearing within normal limits. 2. The gated Cardiolite study reports an LVEF of 74%. Cardiac Cath: 08-26-2014 Final impression: 1. Elevated left ventricular end diastolic pressure compatible decreased diastolic compliance 2. Left ventricle: A. Normal left ventricle size, wall motion, and systolic function B. Estimated LVEF is 60% 3. Left main coronary artery: A. Distal 10-25% tapering/stenosis 4. Left anterior descending coronary artery: A. Proximal minimal luminal irregularities B. 50-75% appearing stenosis prior to a subtotal occlusion C. Mid to distal vessel filling predominantly from the MELENDEZ graft and appearing to demonstrate minimal luminal irregularities D. Diagonal branching system with diffuse minimal luminal irregularities 5. Left circumflex coronary artery: A. Proximal 10-25% appearing stenosis B. Mid diffuse minimal luminal irregularities C. Distal 10-25% appearing stenosis 6. Intermediate ramus coronary artery: A. Minimal luminal irregularities 7. Right coronary artery: A. Large dominant vessel B. Diffuse 10-25% appearing stenosis C. Proximal portion of the AV segment demonstrating 85% hazy appearing stenosis D. Distal AV segment demonstrating a 25% appearing stenosis 8. MELENDEZ to the LAD: A. Patent with no angiographically significant appearing disease 9. Mitral valve apparatus: A. Annulus: Stable B. Mild mitral valve regurgitation-partially catheter/PVC induced PCI: 09-03-2014 in [facility] PTCA/JODY to the distal RCA and proximal right PDA CT Surgery: 12-05-1996: [place], [place] MELENDEZ to the LAD Mitral valve repair with a 31 mm Mildred-Austin annuloplasty ring CXR: Preliminary evaluation: Post open heart surgery changes: Possible right lower lobe infiltrate/mass lesion: Please see official report Chest CT Scan: FINDINGS: There is a 5.5 cm x 5.3 cm x 4.6 cm mass in the posterior aspect of the apical segment of the right lower lobe. Minimal right pleural thickening. Stable increased markings in the right lower lobe suggestive of the scarring. There are calcifications of the coronary arteries. Sternal cerclage wires and vascular clips are present from a prior sternotomy and coronary artery bypass graft procedure (CABG). There are multiple small lymph nodes within the mediastinum, which are normal in size and morphology most compatible with reactive lymph hyperplasia. Mildly enlarged right hilar lymph nodes. Normal unenhanced pulmonary arteries. There is atherosclerotic calcification of the aortic arch with tortuosity and elongation of the aortic arch and descending thoracic aorta. There are mild degenerative changes of the thoracic spine. Hiatal hernia. There is a 2.1 cm cyst in the anterior aspect of the left kidney. CT/Chest without Contrast IMPRESSION: Essentially stable mass in the apical segment of the right lower lobe with surrounding markings suggestive of scarring. There has been essentially no change. Electronically Signed: Scar Peña MD at 8:[address]: FINDINGS: Normal soft tissue structures. Normal calvarium. Calcification of cavernous carotids. Mild atrophy and moderate periventricular white matter ischemic changes.. Normal white matter tracts of the cerebral hemispheres. There are tiny hypoattenuated densities in the head of left caudate nucleus and thalamus consistent with lacunar infarcts of indeterminate age.. There is a tiny hypoattenuated density in the right occipital lobe likely due to old infarct. Normal brainstem. There are 2 hypodense lesions in the right cerebellar hemisphere without mass effect likely ischemic. Neoplasm less likely but not excluded. There is no intracranial hemorrhage. Normal visualized paranasal sinuses. The lesion in left thalamus is old. The others are new CT/Brain/Head without Contrast IMPRESSION: Atrophy and periventricular white matter ischemic changes.. Multiple hypoattenuated lesions the largest in the right cerebellar hemisphere likely ischemic. Neoplasm not entirely excluded however MRI recommended for more definitive evaluation Electronically Signed: Randolph Mcleod MD at 19:26 EDT Assessment/Plan 1. Abnormal cardiac enzymes The patient does have abnormal cardiac enzymes. They were abnormal during his evaluation for his pulmonary emboli. At the present time his troponin I level is somewhat more prominent. The etiology is unclear whether this represents a type II supply demand match event from a cardiovascular status versus a noncardiac event related to his history of pulmonary emboli, lung mass, possible infectious related issue with a postobstructive pneumonia, possible [employer]IST issue based upon his symptoms and his abnormal head CT scan, etc. From a cardiac standpoint he will be monitored. His cardiac enzymes and ECG will be followed. An echocardiogram will be requested to look for any obvious new left ventricular wall motion abnormality. In the interim he should continue noncardiac evaluation of his multiple rectal issues that may be contributing to these findings. He will continue medical therapy in the interim as deemed appropriate. This could include aspirin, nitrates as needed, beta-blockers, lipid-lowering agents, and continued anticoagulant agents. 2. 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 From a cardiac standpoint he will continue to be monitored and have noninvasive evaluation at this time. He will continue medical therapy. Depending upon his clinical course he may or may not need additional noninvasive and/or invasive cardiovascular evaluation. However, prior to any invasive cardiovascular evaluation, if need, he would have to have input regarding his multiple noncardiac issues with respect to diagnosis/care plans as well as interruption of his anticoagulant therapy. 3. Status post mitral valve repair He is status post mitral valve repair. His mitral valve has been reported is functioning appropriately. It can be reassessed as needed with echocardiographic studies. He should continue AHA antibiotic prophylaxis. 4. Bilateral pulmonary emboli He was diagnosed recently with bilateral pulmonary emboli. He has been on anticoagulant therapy. This will need to be continued. If it does have to be interrupted and consideration will have to be given as to how to do this to minimize risk of recurrent thromboembolic events. 5. Right lung mass He has been followed for a right lung mass. The etiology remains unclear at this time. He does need input from pulmonology and other specialties as deemed appropriate with respect to making a diagnosis to assist in his ongoing evaluation and care. 6. Postobstructive pneumonia There is concern he may have a postobstructive pneumonia based upon his clinical scenario and laboratory findings including his elevated white blood cell count. Thus he is going to be placed on antibiotic therapy. 7. Hyperlipidemia He will continue lipid-lowering therapy as deemed appropriate. 8. Hypertension His blood pressure somewhat elevated. It will need to be followed. His medicines may need to be adjusted. 9. Abnormal brain CT He does have an abnormal brain CT report. This does raise concern about the etiology of the findings including whether or not he may have some neoplastic disease-metastatic from an underlying pulmonary mass lesion. It has been recommended by radiology that he have further evaluation with MRI. 10. Altered mental status He does have an altered mental status. He has undergone CT scan of the head/brain which is demonstrated concerning findings requiring further evaluation, such as MRI, to assist with diagnosis and care. Comment: The patient's case has been discussed and reviewed with the patient, his spouse, and Dr. Brooks of the [facility] emergency department staff. This note was generated using a voice recognition system and there may be incorrect words, spelling or punctuation that were not noted when reviewing the office note prior to saving. Procedure Criteria Procedure Type: Elective COVID Risk Discussion: The surgeon/proceduralist and patient have discussed in detail the risk of exposure to and/or potential harm posed by the COVID-19 virus with having a surgery/procedure at this time versus the risk of delaying the surgery/procedure. It is not possible to know either the risk of delaying the surgery or procedure or chance of getting an infection with perfect accuracy, but a joint decision was made between the patient and the surgeon/proceduralist to proceed at this time with the scheduled surgery/procedure as indicated on the consent form.
--- NOTE | 2020-09-16 21:05 | HP.PCM_ITS ---
Problem List (1) Mass, brain Status: Acute (2) Bilateral pulmonary embolism Status: Chronic (3) Right lower lobe lung mass Status: Chronic (4) NSTEMI (non-ST elevated myocardial infarction) Status: Inactive (5) Postobstructive pneumonia Status: Acute (6) Occipital mass Status: Acute (7) Abnormal cardiac enzyme level Status: Acute (8) CAD (coronary artery disease) Status: Chronic Qualifiers: Coronary Disease-Associated Artery/Lesion type: [place] artery [place] vs. transplanted heart: [place] heart (9) Abnormal brain CT Status: Acute (10) Altered mental status Status: Inactive (11) Accelerated hypertension Status: Inactive (12) History of mitral valve repair Status: Chronic Comment: annuloplasty 31mm Mildred Austin ring 12/05/96 (13) Presence of stent in coronary artery Status: Chronic Comment: PTCA/JODY PDA and PTCA/JODY in distal RCA to prox Rt posterior atrioventricular artery 09/03/14 (14) Pure hypercholesterolemia Status: Chronic (15) Essential hypertension Status: Chronic (16) Non-rheumatic mitral regurgitation Status: Chronic (17) Atherosclerotic heart disease of [place] coronary artery without angina pectoris Status: Chronic Qualifiers: [place] vs. transplanted heart: [place] heart Qualified Code(s): I25.10 - Atherosclerotic heart disease of [place] coronary artery without angina pectoris (18) Encounter for long-term current use of high risk medication Status: Chronic (19) Carotid bruit Status: Chronic (20) Palpitations Status: Chronic (21) Chest pressure Status: Inactive (22) S/P CABG x 1 Status: Chronic Comment: CABG X1- MELENDEZ graft to LAD and Mitral annuloplasty using #31 MM ring November 1996 (23) 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 (24) Chest pain Status: Inactive (25) Elevated troponin Status: Inactive (26) Acute encephalopathy Status: Acute History of Present Illness Date of Admission: 09/16/20 Chief Complaint: Slow movement and slow speech The patient is a 85 year old M with a significant history of CAD status post CABG and stent; status post mitral valve repair; Parkinson disease; and CVA who presents to the emergency department with a 2-day history of slow movement and slow speech. Associated with his symptoms is generalized weakness. Also patient reports of intermittent epigastric pain that he rates as 3-4 on a scale of 1-10. Of note patient was admitted on a hospital on 08/03/2020 and discharged on 08/05/2020. At that time he was treated for acute bilateral submassive PE with mild ventricular strain; and acute right lower lobe lung mass. Past Medical History Past Medical History (Chronic Problems): Chronic Problems (Last Reviewed 09/16/20 @ 21:[address] 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) CAD (coronary artery disease) (Chronic) History of mitral valve repair (Chronic ~12/05/96) annuloplasty 31mm Mildred Austin ring 12/05/96 Presence of stent in coronary artery (Chronic ~09/03/14) PTCA/JODY PDA and PTCA/JODY in distal RCA to prox Rt posterior atrioventricular artery 09/03/14 Pure hypercholesterolemia (Chronic) Essential hypertension (Chronic) Non-rheumatic mitral regurgitation (Chronic) Atherosclerotic heart disease of [place] coronary artery without angina pectoris (Chronic) Encounter for long-term current use of high risk medication (Chronic) Carotid bruit (Chronic) Palpitations (Chronic) S/P CABG x 1 (Chronic ~12/05/96) CABG X1- MELENDEZ graft to LAD and Mitral annuloplasty using #31 MM ring November 1996 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) Medical History: Medical History (Last Reviewed 09/16/20 @ 21:[address] Drake Granados MD) Presence of stent in coronary artery (Chronic) Onset Date: ~09/03/14 Z95.5 PTCA/JODY PDA and PTCA/JODY in distal RCA to prox Rt posterior atrioventricular artery 09/03/14 Pure hypercholesterolemia (Chronic) E78.00 Essential hypertension (Chronic) I10 Non-rheumatic mitral regurgitation (Chronic) I34.0 Atherosclerotic heart disease of [place] coronary artery without angina pectoris (Chronic) I25.10 Palpitations (Chronic) R00.2 Arthritis M19.90 Bloody stool K92.1 Difficulty balancing R29.818 Knee pain M25.569 SOB (shortness of breath) R06.02 Stroke I63.9 Parkinsons disease G20 CAD (coronary artery disease) (Inactive) I25.10 CABG MELENDEZ graft to LAD and Mitral annuloplasty using #31 MM ring November 1996, JODY to PDA 2014 Hyperlipidemia (Inactive) E78.5 Hypertension (Inactive) I10 Mitral valve regurgitation (Inactive) I34.0 annuloplasty ring #31 mm ring 1996 Allergies amlodipine Adverse Reaction (Severe, Verified 09/16/20 18:15) Swelling of feet isosorbide Adverse Reaction (Severe, Verified 09/16/20 18:15) Swelling of feet losartan Adverse Reaction (Severe, Verified 09/16/20 18:15) Loss of Appetite Aafftjj-Crh-Mle Reductase Inhibitor Adverse Reaction (Verified 09/16/20 18:15) Upset Stomach Home Medications: Ambulatory Orders Medication Instructions Recorded Aspirin [Aspirin, Baby] 81 mg PO QHS 08/25/14 Fluticasone 0.05% [Flonase Nasal 2 spray NASAL DAILY 08/24/18 [place]] Hydrochlorothiazide [Hctz] 25 mg PO DAILY 08/24/18 Metoprolol Tartrate [Lopressor 12.5 mg PO BID 08/24/18 (beta jenni)] fexofenadine 180 mg tablet 180 mg PO BID 05/31/19 carbidopa 25 mg-levodopa 100 mg 1 tab PO TID 03/03/20 tablet enalapril maleate 20 mg tablet 10 mg PO DAILY tab 03/03/20 ketoconazole 2 % shampoo 1 applic TOPICAL 2XW 03/03/20 nitroglycerin 0.4 mg sublingual 0.4 mg SUBLINGUAL Q5-15M #25 tab 03/03/20 tablet triamcinolone acetonide 0.1 % 1 applic TOPICAL DAILY PRN 03/03/20 topical cream Carbidopa/Levodopa [Carbidopa-Levo 50 - 200 tab PO QHS 08/03/20 ER 50-200 Tab] Potassium Chloride 20 meq PO DAILY 08/03/20 Allopurinol 100 mg PO DAILY 08/04/20 Acetaminophen [Tylenol Tablet] 650 mg PO Q6H PRN PRN tab 08/05/20 Amoxicillin 4 tablet PO .COMPLEX 09/16/20 Famotidine 40 mg PO DAILY 09/16/20 Ondansetron HCl 4 mg PO Q8H PRN 09/16/20 Rivaroxaban [Xarelto] 20 mg PO DAILY 09/16/20 Surgical History: Surgical History (Last Reviewed 09/16/20 @ 21:[address] Drake Granados MD) History of mitral valve repair (Chronic) Onset Date: ~12/05/96 Z98.890 annuloplasty 31mm Mildred Austin ring 12/05/96 S/P CABG x 1 (Chronic) Onset Date: ~12/05/96 Z95.1 CABG X1- MELENDEZ graft to LAD and Mitral annuloplasty using #31 MM ring November 1996 Presence of coronary angioplasty implant and graft Onset Date: ~09/03/14 Z95.5 PTCA/JODY PDA and PTCA/OJDY in distal RCA to prox Rt posterior atrioventricular artery 09/03/14 S/P PTCA (percutaneous transluminal coronary angioplasty) (Inactive) Z98.61 PTCA with JODY to PDA 09/01 S/P mitral valve repair (Inactive) Z98.890 annuloplasty ring #31 mm ring 1996 Surgical History: angioplasty, coronary bypass surgery, - Psychiatric History: No pertinent psych hx Lives: Spouse/ Significant Other Smoking Status: Never smoker Tobacco Use: Non-smoker Alcohol: None Drugs: None - *Family History Maternal Family History: Family History (Last Reviewed 03/03/20 @ 15:13 by Sherry Stanford) Father CVA (cerebral vascular accident) Mother No problems noted. History Items: No pertinent history Paternal Family History: Family History (Last Reviewed 03/03/20 @ 15:13 by Sherry Stanford) Father CVA (cerebral vascular accident) Mother No problems noted. History Items: Stroke Sibling Family History: Family History (Last Reviewed 03/03/20 @ 15:13 by Sherry Stanford) Father CVA (cerebral vascular accident) Mother No problems noted. History Items: Heart Disease - Congenital heart abnormality believed to be a coarctation of the aorta Review of Systems Constitutional: Reports: Malaise, Weakness. Denies: Chills, Fever, Weight Change HEENT: Denies: Head Aches, Sinus Congestion, Sinus Drainage Cardiovascular: Reports: Edema. Denies: Chest Pain, Palpitations Respiratory: Denies: Cough, Shortness of breath at rest, Sputum production Gastrointestinal: Reports: Abdominal Pain - Epigastric. Denies: Nausea, Vomiting Genitourinary: Denies: Dysuria Musculoskeletal: Denies: Joint Pain, Joint Tenderness Skin: Denies: Rash, Wounds Neurological: Denies: Numbness, Tingling, Focal weakness Psychiatric: Denies: Anxiety, Depression, Homicidal Ideations, Suicidal Ideations Hematologic/ Lymphatic: Denies: Easy Bruising, Easy Bleeding VTE Information - Inpt Only VTE Present on Admission: No VTE Mechan Device Prophylaxis: None VTE Pharm Prophylaxis ordered?: No Reason prophylaxis not ordered:: Treatment Not Indicated - On therapeutic dose of Lovenox for history of PE and acute elevation in troponin Patient Problems: Active and Suspected Problems (Last Reviewed 09/16/20 @ 21:[address] Drake Granados MD) Postobstructive pneumonia (Acute) Occipital mass (Acute) Abnormal cardiac enzyme level (Acute) Abnormal brain CT (Acute) Mass, brain (Acute) - Physical Exam Vitals/I&O's: Vital Signs Temp Pulse Resp BP Pulse Ox 97.8 F 72 23 H 131/54 H 96 09/16/20 20:59 09/16/20 20:59 09/16/20 20:59 09/16/20 20:59 09/16/20 20:59 Oxygen Delivery Method Room Air Weight: 74.1 kg Body Mass Index (BMI) 28.9 Finger Stick Blood Glucose 132 General: Alert, Oriented x3, Cooperative HEENT: Atraumatic, PERRLA, EOMI, Normocephalic Neck: Supple, No JVD, Negative Carotid Bruits Lungs: Clear to auscultation, Normal air movement Cardiovascular: Regular rate, No murmurs Abdomen: Bowel Sounds Present, Soft, Non Tender Extremities: No edema, Capillary Refill Less than 3 Seconds Skin: No rashes, No breakdown Musculoskeletal: No Tenderness to Palpation of Joints or Extremities Neurological: Cranial nerves II-XII grossly intact, - - Mild dysmetria with left hekr-uj-uigs test. Psych/Mental Status: Normal Affect, Appropriate Microbiology Past 72 Hours 09/16/20 18:34 Mucosa - Nose SARS-CoV-2 Antigen (Rapid) - Final Laboratory Results 09/16/20 18:20: WBC 15.7 H, RBC 4.47 L, Hgb 11.9 L, Hct 38.8 L, MCV 86.8, MCH 26.6 L, MCHC 30.7 L, RDW Std Deviation 47.8 H, RDW Coeff of Dinesh 15.1 H, Plt Count 251, MPV 10.1, Immature Gran % (Auto) 2.200 H, Neut % (Auto) 66.8, Lymph % (Auto) 9.1 L, [place] % (Auto) 8.3, Eos % (Auto) 13.2 H, Baso % (Auto) 0.4, Absolute Neuts (auto) 10.5 H, Absolute Lymphs (auto) 1.43, Nucleated RBC % 0, Differential Comment SEE COMMENT, Platelet Estimate ADEQUATE, RBC Morphology N CHROM, Anisocytosis RARE 09/16/20 18:20: PT 17.9 H, INR 1.6, APTT 29.9 09/16/20 18:20: Sodium 136, Potassium 3.8, Chloride 101, Carbon Dioxide 32.0, Anion Gap 3 L, BUN 29 H, Creatinine 1.07, Estim Creat Clear Calc 39.88, Est GFR (MDRD) Af Amer 84, Est GFR (MDRD) Non-Af 70, BUN/Creatinine Ratio 27.1 H, Glucose 135 H, Calcium 9.2, Total Bilirubin 1.10 H, Direct Bilirubin 0.32 H, AST 9 L, ALT 7 L, Alkaline Phosphatase 41 L, Troponin I 0.965 H*, Total Protein 7.3, Albumin 3.3, Globulin 4.0 09/16/20 18:38: POC Glucose 132 H 09/16/20 18:50: Urine Color Straw, Urine Clarity Clear, Urine pH 6.5, Ur Specific [place] 1.010, Urine Protein Negative, Urine Glucose (UA) Normal, Urine Ketones Negative, Urine Occult Blood Negative, Urine Nitrite Negative, Urine Bilirubin Negative, Urine Urobilinogen Normal, Ur Leukocyte Esterase Negative, Urine RBC 0 SEEN, Urine WBC 0 SEEN, Ur Squamous Epith Cells 0 SEEN, Urine Bacteria 0 SEEN, Urine Mucus 0 SEEN Assessment/Plan All Active Problems (Last Reviewed 09/16/20 @ 21:[address] Drake Granados MD) Postobstructive pneumonia (Acute) Occipital mass (Acute) Abnormal cardiac enzyme level (Acute) Abnormal brain CT (Acute) Mass, brain (Acute) Acute encephalopathy (Acute) The patient is a 85 year old M with a significant history of CAD status post CABG and stent; Parkinson disease; and CVA who presents emergency department with a 2-day history of slow movement and slow speech; generalized weakness; intermittent epigastric pain was found to have elevated troponin; lung consolidation and multiple brain lesions. Multiple brain mass Radiologist impression of brain CT: Atrophy and periventricular white matter ischemic changes. Multiple hypoattenuated lesions the largest in the right cerebellar hemisphere likely ischemic. Neoplasm not entirely excluded however MRI recommended for more definitive evaluation. Actual brain CT image was independently interpreted. Multiple hypoattenuated lesions noted. With history of lung mass, rule out metastatic cancer. Mild dysmetria with qrhe-lu-[id number] test on the left. Of note patient has a history of Parkinson's disease. MRI/MRA of head; brain; and neck. Serial NINDS NIH Scale ordered -Check Hba1c, Lipid level Physical therapy, occupational therapy and speech therapy to work with patient. Rectal aspirin ordered. High intensity statin could not be ordered since patient failed dysphagia screen at the emergency department. Permissive hypertension. Control blood pressure with labetalol for systolic blood pressure of more than 220 or diastolic blood pressure of more than 120. Echocardiogram ordered by cardiology. Decadron IV ordered at emergency department and continued. If mass appears to be metastatic cancer consider Keppra.. Elevated troponin Cardiology saw patient at the ED. Elevated troponin Secondary to non-ST elevation CT; demand ischemia; neurological insult; or other. Trend troponin. Per discussion between emergent department doctor and cardiology Xarelto should be continued. However because patient did not pass bedside swallow eval by nurses patient has been kept n.p.o. at this time. Received therapeutic dose of Lovenox at the emergency department and continued. Cardiology consult Postoperative pneumonia Chest x-ray with consolidation. Received vancomycin and Zosyn at emergency d epartment. Will de-escalate to ceftriaxone and azithromycin at this time. Acute metabolic and infectious encephalopathy Likely secondary to brain mass and pneumonia. Treatment as above. Dysphagia Reportedly patient has been having difficulty swallowing for a while. Hold all p.o. medications. Speech consult Parkinson disease With dysphagia will hold all oral medications including Parkinson's disease medication DVT prophylaxis Not indicated since patient is on therapeutic dose of Lovenox. Inpatient E&M: 01551 In Hosp L3
[2020-09-16] MEDS: Vancomycin IV 1,000 MG/200 ML BAG 200 MG IV (21:15)
[2020-09-16 22:35] LABS: Hemoglobin A1c 6.9 % (3.8-5.6)
[2020-09-16] MEDS: Potassium Chloride 10mEq/100mL 10 MEQ/100 ML IV.SOLN. 100 MEQ IV BOLUS ×2 (22:42→23:45)
[2020-09-16 22:46] LABS: Magnesium 2.1 mg/dL (1.6-2.6)
[2020-09-16] MEDS: Aspirin 300 MG Suppository RC (23:25)
[2020-09-17] VITALS (14 sets, daily range): BP systolic 127–150; BP diastolic 61–80; PULSE 65–88; RESP 14–16; TEMP 36.4–36.9; O2SAT 94–97; BMI 26.3
[2020-09-17] MEDS: 0.9% Saline Lock 10 ML Syringe IV ×6 (05:12→23:33)
[2020-09-17] MEDS: Enoxaparin 80 MG/0.8 ML Syringe 70 MG SC ×2 (05:12→17:31)
[2020-09-17] MEDS: dexAMETHasone 4 MG/ML Vial IV ×4 (05:12→23:33)
--- NOTE | 2020-09-17 05:55 | ECHOD_ITS ---
Reason For Study: CAD Procedure This was a 2D Doppler, Color Flow transthoracic echocardiogram. The exam was of adequate technical quality. Exam performed portable in patient room. Left Ventricle Normal LV size. Mild concentric left ventricular hypertrophy. Left ventricular systolic function is normal. The estimated ejection fraction is 65 %. There is evidence of diastolic dysfunction. No regional wall motion abnormalities noted. Right Ventricle Normal RV size. Normal systolic function. Atria The left atrium is mildly enlarged. Normal right atrium. No doppler evidence for ASD. Mitral Valve Mild mitral valve stenosis. 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 Trivial transvalvular insufficiency of the mitral valve. Tricuspid Valve Normal tricuspid valve. Mild to moderate (1-2+) tricuspid valve insufficiency. Right ventricular systolic pressure estimated to be 42 mmHg. Aortic Valve Trisinus/trileaflet aortic valve. Mild diffuse aortic valve thickening. Mild diffuse aortic valve calcification. Mild aortic stenosis. Trivial aortic valve insufficiency. Pulmonic Valve The pulmonic valve is not well visualized. Mild-Moderate (1-2+) pulmonic valve insufficiency. Great Vessels Normal sized aortic root. Pericardium/Pleural Trivial pericardial effusion. There are no echocardiographic indications of cardiac tamponade. MMode/2D Measurements & Calculations LVIDd: 4.0 cm IVSd: 1.3 cm LVOT diam: 1.9 cm LVIDs: 2.8 cm LVPWd: 1.4 cm LVOT area: 2.7 cm2 RVDd: 4.8 cm FS: 31.6 % Ao root diam: 3.4 cm LAV(MOD-bp): 49.5 ml Aortic Valve Planimetry: 1.9 cm2 LAV(MOD-bp) Indexed: 29.1 ml/m2 LAV(MOD-sp2): 40.3 ml LAV(MOD-sp4): 60.1 ml LA dimension(2D): 4.1 cm LA A4 area: 20.3 cm2 RA A4 area: 16.9 cm2 Time Measurements MV dec time: 0.28 sec Doppler Measurements & Calculations MV E max tan: 110.8 cm/sec Lat Peak E' Tan: 5.7 cm/sec Med Peak E' Tan: 5.3 cm/sec MV A max tan: 164.4 cm/sec E/E' lat: 19.3 E/E' med: 20.9 MV E/A: 0.67 MV V2 max: 163.1 cm/sec Ao V2 max: 191.9 cm/sec AI max tan: 402.1 cm/sec MV max P.6 mmHg Ao max P.7 mmHg AI max P.2 mmHg MV V2 mean: 92.5 cm/sec Ao V2 mean: 118.1 cm/sec AI dec slope: 256.6 cm/sec2 MV mean P.0 mmHg Ao mean P.4 mmHg AI P1/2t: 459.0 msec MV V2 VTI: 44.5 cm Ao V2 VTI: 34.1 cm MVA(VTI): 1.5 cm2 KATHY(I,D): 1.9 cm2 KATHY(V,D): 1.7 cm2 LV V1 max: 118.3 cm/sec SV(LVOT): 65.0 ml PA V2 max: 96.1 cm/sec LV V1 max P.6 mmHg LV V1 mean P.7 mmHg LV V1 mean: 76.4 cm/sec LV V1 VTI: 23.7 cm TR max tan: 310.6 cm/sec MV P1/2t-pr_phl: 78.2 msec TR max P.7 mmHg ECHO/Echo Complete Interpretation Summary Left ventricular systolic function is normal. The estimated ejection fraction is 65 %. Mild concentric left ventricular hypertrophy. The left atrium is mildly enlarged. 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 Mild mitral valve stenosis. Trivial transvalvular insufficiency of the mitral valve. Mild to moderate (1-2+) tricuspid valve insufficiency. Mild aortic stenosis. Trivial aortic valve insufficiency. Mild-Moderate (1-2+) pulmonic valve insufficiency. Trivial pericardial effusion. There are no echocardiographic indications of cardiac tamponade. Right ventricular systolic pressure estimated to be 42 mmHg. There is evidence of diastolic dysfunction. Ordering Physician: Pierre Cardoso Referring Physician: JOSE MAX Performed By: Minerva Oropeza, ELVISCS, RVT
--- NOTE | 2020-09-17 05:55 | EKG12_ITS ---
Test Reason : AM EKG Blood Pressure : / mmHG Vent. Rate : 071 BPM Atrial Rate : 071 BPM P-R Int : 184 ms QRS Dur : 092 ms QT Int : 400 ms P-R-T Axes : 041 -07 006 degrees QTc Int : 434 ms Normal sinus rhythm Normal ECG When compared with ECG of 04-AUG-2020 10:46, Premature ventricular complexes are no longer Present Confirmed by NILES PEARCE, OMAR ([id number]), film editor supervisor TYLER PEÑA ([id number]) on 09/18/2020 9:14:16 AM Referred By: ZORAN Confirmed By:OMAR CAGE MD
[2020-09-17 06:25] LABS: Absolute Lymphocyte Count 0.77 X10^3/uL (0.83-4.51); Basophil# 0.03 X10^3/uL; Basophil% 0.3 % (0-1); Eosinophil# 0.02 X10^3/uL; Eosinophils% 0.2 % (0-5); Hematocrit 36.4 % (40-54); Hemoglobin 11.4 g/dL (13.0-16.5); Lymphocyte # 0.77 X10^3/ul (4.0); Lymphocyte % 7.6 % (19-41); Mean Corp Hgb Conc 31.3 g/dL (32-36); Mean Corpuscular Hgb 27.1 pg (27.0-32.0); Mean Corpuscular Volume 86.5 fL (80-94); Monocyte# 0.12 X10^3/uL; Monocyte% 1.2 % (0-10); NRBC Flagged by Analyzer 0 % (0-5); Neutrophil # 8.97 X10^3/uL (2.7-7.7); Neutrophil % 88.6 % (47-70); Platelet Count 227 K/mm3 (150-450); RBC Distribution Width CV 14.9 % (11.6-14.6); RBC Distribution Width SD 46.5 fl (35.1-43.9); Red Blood Count 4.21 M/mm3 (4.6-6.2); White Blood Count 10.1 K/mm3 (4.4-11.0)
[2020-09-17 06:54] LABS: Anion Gap 3 (5-15); BUN 24 mg/dL (7-18); BUN/Creat Ratio 27.7 RATIO (10-20); Calcium,Total 9.3 mg/dL (8.5-10.1); Chloride 103 mmol/L (98-107); Cholesterol 168 mg/dL (200); Creatinine, Serum 0.87 mg/dL (0.70-1.30); EST Glomerular Filtration Rate 89 mL/min (>60); Est Glom Filt Rate - Afr Amer 107 mL/min (>60); Estimated Creatinine Clearance 47.07 ml/min; Glucose 176 mg/dL (74-106); High Density Lipoprotein 50 mg/dL; Potassium 4.1 mmol/L (3.5-5.1); Sodium Level 135 mmol/L (136-145); Triglycerides 72 mg/dL; Very Low Density Lipoprotein 14 mg/dL (5-40)
--- NOTE | 2020-09-17 08:39 | PCM.PN.CARD ---
Subjectve: The patient is awake and alert. He states he rested comfortably through the night. He denies any new acute symptoms. He does note that he has had some difficulty swallowing. Objective: Vital Signs Temp Pulse Resp BP Pulse Ox 97.5 F L 82 16 134/73 H 95 09/17/20 05:20 09/17/20 07:29 09/17/20 05:20 09/17/20 05:20 09/17/20 05:20 Oxygen Delivery Method Room Air Weight: 148 lb 9.465 oz Body Mass Index (BMI) 26.3 Finger Stick Blood Glucose 132 Intake and Output for Last 24 Hours 09/15/20 09/16/20 09/17/20 23:59 23:59 23:59 Intake Total 605 / 605 100 / 100 Output Total 350 / 350 375 / 375 Balance 255 / 255 -275 / -275 General: Awake, Alert, Oriented x 3, Cooperative, No Acute Distress HEENT: Atraumatic, Normocephalic, PERRL, EOMI, Sclera Non Icteric Neck: No JVD Lungs: Diminished Right Base Cardiovascular: Regular Rhythm, Normal S1, Normal S2 Abdomen: Bowel Sounds Present, Soft Extremities: Mild RLE Edema, Moderate LLE Edema Psych/Mental Status: Flat Affect 09/16/20 18:20: WBC 15.7 H, RBC 4.47 L, Hgb 11.9 L, Hct 38.8 L, MCV 86.8, MCH 26.6 L, MCHC 30.7 L, Plt Count 251, MPV 10.1, Immature Gran % (Auto) 2.200 H, Neut % (Auto) 66.8, Lymph % (Auto) 9.1 L, Miner % (Auto) 8.3, Eos % (Auto) 13.2 H, Baso % (Auto) 0.4, Absolute Neuts (auto) 10.5 H, Nucleated RBC % 0 09/16/20 18:20: PT 17.9 H, INR 1.6, APTT 29.9 09/16/20 18:20: Sodium 136, Potassium 3.8, Chloride 101, Carbon Dioxide 32.0, Anion Gap 3 L, BUN 29 H, Creatinine 1.07, Est GFR (MDRD) Af Amer 84, Est GFR (MDRD) Non-Af 70, BUN/Creatinine Ratio 27.1 H, Glucose 135 H, Calcium 9.2, Total Bilirubin 1.10 H, Direct Bilirubin 0.32 H, Troponin I 0.965 H* 09/16/20 18:20: Hemoglobin A1c 6.9 H 09/16/20 18:50: Urine Color Straw, Urine Clarity Clear, Urine pH 6.5, Ur Specific [place] 1.010, Urine Protein Negative, Urine Glucose (UA) Normal, Urine Ketones Negative, Urine Occult Blood Negative, Urine Nitrite Negative, Urine Bilirubin Negative, Urine Urobilinogen Normal, Ur Leukocyte Esterase Negative, Urine RBC 0 SEEN, Urine WBC 0 SEEN 09/16/20 22:05: Troponin I 0.983 H* 09/16/20 22:05: Magnesium 2.1 09/17/20 00:25: Troponin I 0.911 H* 09/17/20 06:15: WBC 10.1, RBC 4.21 L, Hgb 11.4 L, Hct 36.4 L, MCV 86.5, MCH 27.1, MCHC 31.3 L, Plt Count 227, MPV 10.0, Immature Gran % (Auto) 2.100 H, Neut % (Auto) 88.6 H, Lymph % (Auto) 7.6 L, [place] % (Auto) 1.2, Eos % (Auto) 0.2, Baso % (Auto) 0.3, Absolute Neuts (auto) 9.0 H, Nucleated RBC % 0 09/17/20 06:15: Sodium 135 L, Potassium 4.1, Chloride 103, Carbon Dioxide 29.0, Anion Gap 3 L, BUN 24 H, Creatinine 0.87, Est GFR (MDRD) Af Amer 107, Est GFR (MDRD) Non-Af 89, BUN/Creatinine Ratio 27.7 H, Glucose 176 H, Calcium 9.3, Triglycerides 72, Cholesterol 168, LDL Cholesterol 104, VLDL Cholesterol 14, HDL Cholesterol 50 Rhythm: Sinus rhythm EKG: Sinus rhythm; inferior posterior OH of indeterminate age cannot be excluded Medical Necessity - Tobacco Use Smoking Status: Never smoker Tobacco Use: Non-smoker Assessment/Plan 1. Abnormal cardiac enzymes The patient does have abnormal cardiac enzymes. His cardiac enzyme repeat studies have demonstrated no significant change. Also, his repeat ECG is demonstrated no significant change. At the present time his troponin I level is somewhat more prominent. 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 From a cardiac standpoint he will be monitored. An echocardiogram will be requested to look for any obvious new left ventricular wall motion abnormality. In the interim he should continue noncardiac evaluation of his multiple rectal issues that may be contributing to these findings. He will continue medical therapy in the interim as deemed appropriate. This could include aspirin, nitrates as needed, beta-blockers, lipid-lowering agents, and continued anticoagulant agents. However, his medications may have to be given topically or intravenously until he allowed to take oral medications again. 2. 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 From a cardiac standpoint he will continue to be monitored and have noninvasive evaluation at this time. He will continue medical therapy. Depending upon his clinical course he may or may not need additional noninvasive and/or invasive cardiovascular evaluation. However, prior to any invasive cardiovascular evaluation, if need, he would have to have input regarding his multiple noncardiac issues with respect to diagnosis/care plans as well as interruption of his anticoagulant therapy. 3. Status post mitral valve repair He is status post mitral valve repair. His mitral valve has been reported is functioning appropriately. It can be reassessed as needed with echocardiographic studies. He should continue AHA antibiotic prophylaxis. 4. Bilateral pulmonary emboli He was diagnosed recently with bilateral pulmonary emboli. He has been on anticoagulant therapy. This will need to be continued. If it does have to be interrupted and consideration will have to be given as to how to do this to minimize risk of recurrent thromboembolic events. 5. Right lung mass He has been followed for a right lung mass. The etiology remains unclear at this time. He does need input from pulmonology and other specialties as deemed appropriate with respect to making a diagnosis to assist in his ongoing evaluation and care. 6. Postobstructive pneumonia There is concern he may have a postobstructive pneumonia based upon his clinical scenario and laboratory findings including his elevated white blood cell count. Thus he is going to be placed on antibiotic therapy. 7. Hyperlipidemia He will continue lipid-lowering therapy as deemed appropriate. 8. Hypertension His blood pressure somewhat elevated. It will need to be followed. His medicines may need to be adjusted. 9. Abnormal brain CT He does have an abnormal brain CT report. This does raise concern about the etiology of the findings including whether or not he may have some neoplastic disease-metastatic from an underlying pulmonary mass lesion. It has been recommended by radiology that he have further evaluation with MRI. 10. Altered mental status He does have an altered mental status. He has undergone CT scan of the head/brain which is demonstrated concerning findings requiring further evaluation, such as MRI, to assist with diagnosis and care. This note was generated using a voice recognition system and there may be incorrect words, spelling or punctuation that were not noted when reviewing the office note prior to saving.
--- NOTE | 2020-09-17 10:30 | CASEMGMT ---
Palliative screening tool completed at this time for lace/strata 3. Patient meets criteria and hospitalist WORKPLACE TRAINER AND ASSESSOR updated. No referral at this time.
[2020-09-17] MEDS: Ceftriaxone 1 GM/50 ML BAG IV (10:43)
[2020-09-17] MEDS: Famotidine 200 MG/20 ML MDV 20 MG in 0.9% Normal Saline (Pres. free 8 ML 300 MG IV ×2 (10:44→20:20)
[2020-09-17] MEDS: Fluticasone 0.05% 1 SPRAY NASAL.SRY 2 SPRAY NASAL (10:44)
[2020-09-17] MEDS: Aspirin 300 MG Suppository RC (10:58)
--- NOTE | 2020-09-17 12:59 | PCM.PROGNOTE ---
<ChocoErin [employer]IVER - Last Filed: 09/17/20 13:27> Patient Problems: Active and Suspected Problems (Last Reviewed 09/16/20 @ 21:[address] Drake Granados MD) Postobstructive pneumonia (Acute) Occipital mass (Acute) Abnormal cardiac enzyme level (Acute) Abnormal brain CT (Acute) Mass, brain (Acute) Acute encephalopathy (Acute) Subjective: Patient seen and examined. Denies current symptoms or complaints. Discussed plan of care patient and he would like further discussion with his . Awaiting MRI. - Physical Exam Vitals/I&O's: Vital Signs Temp Pulse Resp BP Pulse Ox 97.9 F 78 15 134/73 H 95 09/17/20 10:03 09/17/20 10:03 09/17/20 10:03 09/17/20 05:20 09/17/20 10:03 Oxygen Delivery Method Room Air Weight: 148 lb 9.465 oz Body Mass Index (BMI) 26.3 Finger Stick Blood Glucose 132 Intake and Output for Last 24 Hours 09/15/20 09/16/20 09/17/20 23:59 23:59 23:59 Intake Total 605 / 605 118 / 118 Output Total 350 / 350 375 / 375 Balance 255 / 255 -257 / -257 General: Alert, Cooperative, No apparent distress HEENT: Atraumatic, PERRLA, EOMI, Normocephalic Neck: Supple, No JVD, Negative Carotid Bruits Lungs: Clear to auscultation, Normal air movement Cardiovascular: Regular rate, No murmurs Abdomen: Bowel Sounds Present, Soft, Non Tender, Non-Distended Extremities: No clubbing, No cyanosis, No edema, Capillary Refill Less than 3 Seconds Skin: No rashes, No breakdown Musculoskeletal: No Tenderness to Palpation of Joints or Extremities Neurological: Cranial nerves II-XII grossly intact, Neuro grossly intact Psych/Mental Status: Normal Affect, Appropriate Microbiology Past 72 Hours 09/16/20 18:34 Mucosa - Nose SARS-CoV-2 Antigen (Rapid) - Final Laboratory Results 09/16/20 18:20: WBC 15.7 H, RBC 4.47 L, Hgb 11.9 L, Hct 38.8 L, MCV 86.8, MCH 26.6 L, MCHC 30.7 L, RDW Std Deviation 47.8 H, RDW Coeff of Dinesh 15.1 H, Plt Count 251, MPV 10.1, Immature Gran % (Auto) 2.200 H, Neut % (Auto) 66.8, Lymph % (Auto) 9.1 L, [place] % (Auto) 8.3, Eos % (Auto) 13.2 H, Baso % (Auto) 0.4, Absolute Neuts (auto) 10.5 H, Absolute Lymphs (auto) 1.43, Nucleated RBC % 0, Differential Comment SEE COMMENT, Platelet Estimate ADEQUATE, RBC Morphology N CHROM, Anisocytosis RARE 09/16/20 18:20: PT 17.9 H, INR 1.6, APTT 29.9 09/16/20 18:20: Sodium 136, Potassium 3.8, Chloride 101, Carbon Dioxide 32.0, Anion Gap 3 L, BUN 29 H, Creatinine 1.07, Estim Creat Clear Calc 39.88, Est GFR (MDRD) Af Amer 84, Est GFR (MDRD) Non-Af 70, BUN/Creatinine Ratio 27.1 H, Glucose 135 H, Calcium 9.2, Total Bilirubin 1.10 H, Direct Bilirubin 0.32 H, AST 9 L, ALT 7 L, Alkaline Phosphatase 41 L, Troponin I 0.965 H*, Total Protein 7.3, Albumin 3.3, Globulin 4.0 09/16/20 18:20: Hemoglobin A1c 6.9 H 09/16/20 18:38: POC Glucose 132 H 09/16/20 18:50: Urine Color Straw, Urine Clarity Clear, Urine pH 6.5, Ur Specific [place] 1.010, Urine Protein Negative, Urine Glucose (UA) Normal, Urine Ketones Negative, Urine Occult Blood Negative, Urine Nitrite Negative, Urine Bilirubin Negative, Urine Urobilinogen Normal, Ur Leukocyte Esterase Negative, Urine RBC 0 SEEN, Urine WBC 0 SEEN, Ur Squamous Epith Cells 0 SEEN, Urine Bacteria 0 SEEN, Urine Mucus 0 SEEN 09/16/20 22:05: Troponin I 0.983 H* 09/16/20 22:05: Magnesium 2.1 09/17/20 00:25: Troponin I 0.911 H* 09/17/20 06:15: WBC 10.1, RBC 4.21 L, Hgb 11.4 L, Hct 36.4 L, MCV 86.5, MCH 27.1, MCHC 31.3 L, RDW Std Deviation 46.5 H, RDW Coeff of Dinesh 14.9 H, Plt Count 227, MPV 10.0, Immature Gran % (Auto) 2.100 H, Neut % (Auto) 88.6 H, Lymph % (Auto) 7.6 L, [place] % (Auto) 1.2, Eos % (Auto) 0.2, Baso % (Auto) 0.3, Absolute Neuts (auto) 9.0 H, Absolute Lymphs (auto) 0.77 L, Nucleated RBC % 0 09/17/20 06:15: Sodium 135 L, Potassium 4.1, Chloride 103, Carbon Dioxide 29.0, Anion Gap 3 L, BUN 24 H, Creatinine 0.87, Estim Creat Clear Calc 47.07, Est GFR (MDRD) Af Amer 107, Est GFR (MDRD) Non-Af 89, BUN/Creatinine Ratio 27.7 H, Glucose 176 H, Calcium 9.3, Triglycerides 72, Cholesterol 168, LDL Cholesterol 104, VLDL Cholesterol 14, HDL Cholesterol 50 Current Medications Aspirin (Aspirin 300 Mg Suppository) 300 mg RC DAILY [facility] Last Admin: 09/17/20 10:58 Dose: 300 mg Documented by: Dexamethasone Sodium Phosphate (Dexamethasone 4 Mg/Ml Vial) 4 mg IV Q6 [facility] Last Admin: 09/17/20 11:50 Dose: 4 mg Documented by: Enoxaparin Sodium (Enoxaparin 80 Mg/0.8 Ml Syringe) 70 mg SC Q12@0600,1800 [facility] Last Admin: 09/17/20 05:12 Dose: 70 mg Documented by: Fluticasone Propionate (Fluticasone 0.05% 1 [place] Nasal.Sry) 2 spray NASAL DAILY [facility] Last Admin: 09/17/20 10:44 Dose: 2 spray Documented by: Hydralazine HCl (Hydralazine 20 Mg/Ml Vial) 5 mg IV Q30M PRN PRN Reason: to maintain BP goals Famotidine 20 mg/ Sodium (Chloride) 10 mls @ 300 mls/hr IV Q12 [facility] Last Admin: 09/17/20 10:44 Dose: 300 mls/hr Documented by: Ceftriaxone Sodium (Rocephin) 1 gm in 50 mls @ 100 mls/hr IV Q24 [facility] Last Admin: 09/17/20 10:43 Dose: 100 mls/hr Documented by: Sodium Chloride () 250 mls @ 15 mls/hr IV .[id number] PRN PRN Reason: Saline Flush Last Infusion: 09/17/20 11:55 Dose: 0 mls/hr Documented by: Sodium Chloride () 250 mls @ 15 mls/hr IV .[id number] PRN PRN Reason: Additional IVPB Infusion Labetalol HCl (Labetalol (Prefilled) 20 Mg/4 Ml) 10 - 20 mg IV Q10M PRN PRN PRN Reason: to Maintain BP Goals Ondansetron HCl (Ondansetron 4 Mg/2 Ml Vial) 4 mg IV Q8H PRN PRN PRN Reason: NAUSEA/VOMITING Sodium Chloride (0.9% Saline Lock 10 Ml Syringe) 10 - 40 ml IV UD PRN PRN Reason: SALINE FLUSH Last Admin: 09/17/20 11:54 Dose: 5 ml Documented by: Medical Necessity - Tobacco Use Smoking Status: Never smoker Tobacco Use: Non-smoker Assessment/Plan All Active Problems (Last Reviewed 09/16/20 @ 21:[address] Drake Granados MD) Postobstructive pneumonia (Acute) Occipital mass (Acute) Abnormal cardiac enzyme level (Acute) Abnormal brain CT (Acute) Mass, brain (Acute) Acute encephalopathy (Acute) 1. Acute metabolic/infectious encephalopathy-suspect multifactorial as a result of pneumonia, underlying brain lesions. Treatment per below. 2. Postobstructive pneumonia-on IV Rocephin. Albuterol DuoNeb aerosols. Leukocytosis resolved. Oxygen stable on room air. 3. Abnormal troponin-cardiology consulted. Echocardiogram demonstrates an EF of 65%, mild to moderate tricuspid valve insufficiency, mild aortic stenosis, mild to moderate pulmonic valve insufficiency, RVSP estimated to be 42 mmHg. Continue medical therapy. No plans for further aggressive evaluation at this time. 4. Multiple brain mass versus lesions, right lower lobe lung mass-MRI of brain, MRA of head and neck ordered for further evaluation. Will order CT-guided biopsy of lung mass. Pending results, will consider oncology consult. 5. History of PE-08/03/2020. On Xarelto. 6. Parkinson's disease-on carbidopa/levodopa. 7. Hypertension-stable, continue enalapril, HCTZ, metoprolol. 8. Dysphagia- ST eval. 9. CAD with history of CABG and stents-on aspirin, metoprolol. 10. Type 2 diabetes mellitus-hemoglobin A1c 6.9%. Accu-Cheks with sliding scale insulin. 11. History of mitral valve repair 12. Gout-on allopurinol. DVT prophylaxis-Xarelto on hold with plans for lung biopsy, lovenox wi This patient was seen by RAY Victor under the supervision of Dr. Middleton. <Mick Middleton F - Last Filed: 09/17/20 14:25> - Physical Exam Vitals/I&O's: Vital Signs Temp Pulse Resp BP Pulse Ox 98.1 F 84 14 127/61 H 95 09/17/20 13:29 09/17/20 13:29 09/17/20 13:29 09/17/20 13:29 09/17/20 13:29 Oxygen Delivery Method Room Air Weight: 148 lb 9.465 oz Body Mass Index (BMI) 26.3 Finger Stick Blood Glucose 132 Intake and Output for Last 24 Hours 09/15/20 09/16/20 09/17/20 23:59 23:59 23:59 Intake Total 605 / 605 178 / 178 Output Total 350 / 350 705 / 705 Balance 255 / 255 -527 / -527 Microbiology Past 72 Hours 09/16/20 18:34 Mucosa - Nose SARS-CoV-2 Antigen (Rapid) - Final Laboratory Results 09/16/20 18:20: WBC 15.7 H, RBC 4.47 L, Hgb 11.9 L, Hct 38.8 L, MCV 86.8, MCH 26.6 L, MCHC 30.7 L, RDW Std Deviation 47.8 H, RDW Coeff of Dinesh 15.1 H, Plt Count 251, MPV 10.1, Immature Gran % (Auto) 2.200 H, Neut % (Auto) 66.8, Lymph % (Auto) 9.1 L, [place] % (Auto) 8.3, Eos % (Auto) 13.2 H, Baso % (Auto) 0.4, Absolute Neuts (auto) 10.5 H, Absolute Lymphs (auto) 1.43, Nucleated RBC % 0, Differential Comment SEE COMMENT, Platelet Estimate ADEQUATE, RBC Morphology N CHROM, Anisocytosis RARE 09/16/20 18:20: PT 17.9 H, INR 1.6, APTT 29.9 09/16/20 18:20: Sodium 136, Potassium 3.8, Chloride 101, Carbon Dioxide 32.0, Anion Gap 3 L, BUN 29 H, Creatinine 1.07, Estim Creat Clear Calc 39.88, Est GFR (MDRD) Af Amer 84, Est GFR (MDRD) Non-Af 70, BUN/Creatinine Ratio 27.1 H, Glucose 135 H, Calcium 9.2, Total Bilirubin 1.10 H, Direct Bilirubin 0.32 H, AST 9 L, ALT 7 L, Alkaline Phosphatase 41 L, Troponin I 0.965 H*, Total Protein 7.3, Albumin 3.3, Globulin 4.0 09/16/20 18:20: Hemoglobin A1c 6.9 H 09/16/20 18:38: POC Glucose 132 H 09/16/20 18:50: Urine Color Straw, Urine Clarity Clear, Urine pH 6.5, Ur Specific [place] 1.010, Urine Protein Negative, Urine Glucose (UA) Normal, Urine Ketones Negative, Urine Occult Blood Negative, Urine Nitrite Negative, Urine Bilirubin Negative, Urine Urobilinogen Normal, Ur Leukocyte Esterase Negative, Urine RBC 0 SEEN, Urine WBC 0 SEEN, Ur Squamous Epith Cells 0 SEEN, Urine Bacteria 0 SEEN, Urine Mucus 0 SEEN 09/16/20 22:05: Troponin I 0.983 H* 09/16/20 22:05: Magnesium 2.1 09/17/20 00:25: Troponin I 0.911 H* 09/17/20 06:15: WBC 10.1, RBC 4.21 L, Hgb 11.4 L, Hct 36.4 L, MCV 86.5, MCH 27.1, MCHC 31.3 L, RDW Std Deviation 46.5 H, RDW Coeff of Dinesh 14.9 H, Plt Count 227, MPV 10.0, Immature Gran % (Auto) 2.100 H, Neut % (Auto) 88.6 H, Lymph % (Auto) 7.6 L, [place] % (Auto) 1.2, Eos % (Auto) 0.2, Baso % (Auto) 0.3, Absolute Neuts (auto) 9.0 H, Absolute Lymphs (auto) 0.77 L, Nucleated RBC % 0 09/17/20 06:15: Sodium 135 L, Potassium 4.1, Chloride 103, Carbon Dioxide 29.0, Anion Gap 3 L, BUN 24 H, Creatinine 0.87, Estim Creat Clear Calc 47.07, Est GFR (MDRD) Af Amer 107, Est GFR (MDRD) Non-Af 89, BUN/Creatinine Ratio 27.7 H, Glucose 176 H, Calcium 9.3, Triglycerides 72, Cholesterol 168, LDL Cholesterol 104, VLDL Cholesterol 14, HDL Cholesterol 50 Current Medications Albuterol Sulfate (Albuterol 2.5 Mg/3 Ml Vial.Neb.) 2.5 mg INHALATION Q2H PRN PRN PRN Reason: SHORTNESS OF BREATH Aspirin (Aspirin 300 Mg Suppository) 300 mg RC DAILY [facility] Last Admin: 09/17/20 10:58 Dose: 300 mg Documented by: Dexamethasone Sodium Phosphate (Dexamethasone 4 Mg/Ml Vial) 4 mg IV Q6 [facility] Last Admin: 09/17/20 11:50 Dose: 4 mg Documented by: Enoxaparin Sodium (Enoxaparin 80 Mg/0.8 Ml Syringe) 70 mg SC Q12@0600,1800 [facility] Last Admin: 09/17/20 05:12 Dose: 70 mg Documented by: Fluticasone Propionate (Fluticasone 0.05% 1 [place] Nasal.Sry) 2 spray NASAL DAILY [facility] Last Admin: 09/17/20 10:44 Dose: 2 spray Documented by: Hydralazine HCl (Hydralazine 20 Mg/Ml Vial) 5 mg IV Q30M PRN PRN Reason: to maintain BP goals Famotidine 20 mg/ Sodium (Chloride) 10 mls @ 300 mls/hr IV Q12 [facility] Last Infusion: 09/17/20 13:13 Dose: Infused Documented by: Ceftriaxone Sodium (Rocephin) 1 gm in 50 mls @ 100 mls/hr IV Q24 [facility] Last Infusion: 09/17/20 13:13 Dose: Infused Documented by: Sodium Chloride () 250 mls @ 15 mls/hr IV .[id number] PRN PRN Reason: Saline Flush Last Infusion: 09/17/20 11:55 Dose: 0 mls/hr Documented by: Sodium Chloride () 250 mls @ 15 mls/hr IV .[id number] PRN PRN Reason: Additional IVPB Infusion Insulin Human Lispro (Insulin Lispro 100 Unit/Ml Insuln.Pen) 0 unit SC ACHS MANI; Protocol Labetalol HCl (Labetalol (Prefilled) 20 Mg/4 Ml) 10 - 20 mg IV Q10M PRN PRN PRN Reason: to Maintain BP Goals Ondansetron HCl (Ondansetron 4 Mg/2 Ml Vial) 4 mg IV Q8H PRN PRN PRN Reason: NAUSEA/VOMITING Sodium Chloride (0.9% Saline Lock 10 Ml Syringe) 10 - 40 ml IV UD PRN PRN Reason: SALINE FLUSH Last Admin: 09/17/20 11:54 Dose: 5 ml Documented by: Addendum: Dr. Middleton I personally examined the patient and reviewed the chart. I agree with the above. 85-year-old male presents with slow speech and initially thought to be a CVA. He thought that he may have overdosed on GERD medication. Per him and the he is much better today and is back to his normal self. However in the process of working him up for the possible CVA he had a CT scan of his brain which demonstrated a possible mass versus infarct especially in the setting of a right lower lobe lung mass that was found about a month ago on CT scan. He still has that lung mass on chest x-ray and therefore we will plan for CT-guided biopsy in the morning and currently pending MRI evaluation of this brain lesion. He was recently diagnosed with bilateral PEs and he did not receive his Xarelto yesterday evening. He was transitioned to therapeutic Lovenox which we will hold after tonight's dose in preparation for the CT-guided biopsy. After his biopsy will hold all anticoagulation for 24 hours and he can restart his Xarelto Tuesday evening. As for his cardiac function and his elevated troponins, cardiology feels that we should be able to manage him medically for now. There is concern for postobstructive pneumonia secondary to the right lower lobe mass, will continue with Rocephin and azithromycin, leukocytosis has resolved. Inpatient E&M: 18872 Subs Hosp L2
--- NOTE | 2020-09-17 13:35 | CASEMGMT ---
RN SHONDA Face to Face with patient for initial transition planning/care coordination assessment. RN CM introduced self and role at [facility]. Patient sitting in chair, alert and oriented, at bedside. Patient willing to participate in assessment and is able to answer all questions appropriately. Care providers, pharmacy, and demographics verified. Patient wishes to discharge home, denies need for home health at this time. Patient states he has no further needs or concerns at this time. CM to follow for discharge planning needs that may arise. PCP: Corby Specialists: Ralph patient care specialist; Walker supervisor pipeline Preferred Pharmacy: [facility] Insurance: [employer] Prescription Benefit: yes Living Will/HPOA: yes, María Elena Dill LNOK: Living Arrangements: Patient lives with in a 2 story home and has first floor setup. 2 steps to enter the home. Patient states he is independent at home. Transportation: self/ DME/HHC: Patient states he has cane, walker, grab bars at home. Patient denies previous HHC or SNF. Disposition Plan: Patient to discharge home with family support and follow-up plans in place. Will monitor for need for outpatient ST. Pattie YADAV, RN, CM
--- NOTE | 2020-09-17 15:25 | NURSING ---
THIS RN CALLED TO MRI FOR PT C/O CP. ON ARRIVAL. PT STATED HE HAD MIDSTERNAL CP BUT RESOLVED. MONITOR APPLIED. PT HYPERTENSIVE 177 SYSTOLIC, 96% RA, NSR. Repeat BP 155 systolic. Report called to BRITANY GOODSON, to inform her of episode of CP. Pt continues to deny and in no distress.
--- NOTE | 2020-09-17 16:19 | NURSING ---
NIH & VS late d/t pt being off unit for MRI
[2020-09-17 16:35] LABS: Bedside Glucose 190 mg/dL (70-110)
[2020-09-17] MEDS: Insulin Lispro 100 UNIT/ML INSULN.PEN SC ×2 (17:31→22:10)
[2020-09-17] MEDS: Acetaminophen 325 MG Tablet 650 MG PO (20:20)
--- NOTE | 2020-09-17 21:33 | MRI_ITS ---
STUDY: MRI BRAIN WITH AND WITHOUT CONTRAST REASON FOR EXAM: Male, 85 years old. Brain mass cva VS METS, NEW DX OF LUNG CA, ABNORMAL CT TECHNIQUE: Standardized multiplanar fat and water weighted pulse sequences were obtained. IV 15 cc dotarem was administered for the contrast portion of the examination. COMPARISON: Head CT dated September 16, 2020 FINDINGS: Moderate size acute infarct of the right cerebellar lobe reidentified. Several tiny cortical infarcts are also present in the superior aspects of the right and left parietal lobes. There is mild cerebral atrophy with widening of the extra-axial spaces and ventricular dilatation. There are multiple white matter hyperintensities, distributed throughout the deep white matter tracts of the cerebral hemispheres, consistent with moderate chronic white matter ischemic changes. No hydrocephalus is present. No focal suspicious parenchymal lesions are seen and no abnormal enhancement is demonstrated. Cava septum pellucidum noted. No vasogenic edema is seen that typically accompanies malignant lesions of the brain. Normal bilateral basal ganglia. Normal thalami. There is no extra-axial fluid accumulation. Normal flow voids within the major intracranial circulation suggesting patency by spin echo criteria. Normal venous enhancement. There is no enhancing intra-axial or extra-axial abnormality. Normal sella turcica, pituitary gland, infundibular stalk, optic chiasm and hypothalamus. Normal tectal plate and pineal gland. Normal midbrain, lauryn and medulla. Normal basal cisterns. Normal bilateral temporal bones. Normal bilateral internal auditory canals. No demonstrated orbital abnormality, within the constraints of a routine brain study. Normal visualized paranasal sinuses. Normal calvarium and skull base. Normal visualized soft tissue structures. Normal visualized upper cervical spine. MRI/Brain W/WO Contrast IMPRESSION: 1. 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 Multiple tiny cortical infarcts in the superior aspects of the right and left parietal lobes. 3. No focal suspicious parenchymal lesions are seen and no abnormal enhancement is demonstrated. No vasogenic edema is seen that typically accompanies malignant lesions of the brain. Electronically Signed: Zoltan Gay MD at 19:02 EDT , Service support ,
--- NOTE | 2020-09-17 21:33 | MRI_ITS ---
STUDY: MRA NECK WITH AND WITHOUT CONTRAST REASON FOR EXAM: Male, 85 years old. cva VS METS, NEW DX OF LUNG CA, ABNORMAL CT TECHNIQUE: 3-D wgys-fp-dfmxfh (TOF) imaging was performed in an 1.5 T MRI scanner. IV DOTAREM 15 CC was administered for the contrast enhanced images. COMPARISON: 04/14/2019 CTA FINDINGS: The origin of the great vessels are patent. The bilateral common carotid arteries are patent. Carotid bifurcations are patent. The extracranial segments of the internal carotid arteries are patent. Intracranial segments of the internal carotid arteries are patent. Narrowing at the origin of the right vertebral artery seen. Left vertebral artery appears patent. The foraminal and extraforaminal segments of the vertebral arteries are patent. Intradural segments appear patent. Vertebrobasilar junction is patent. IMPRESSION: No evidence for hemodynamically significant extracranial carotid artery stenosis. Moderate narrowing at the origin of the right vertebral artery seen. Electronically Signed: Guilherme Porras MD at 16:45 EDT Tel , Service support , MRI/MRA Neck WITH and W/O Contrast
--- NOTE | 2020-09-17 21:33 | MRI_ITS ---
STUDY: MRA OF THE HEAD WITHOUT CONTRAST REASON FOR EXAM: Male, 85 years old. cva VS METS, NEW DX OF LUNG CA, ABNORMAL CT TECHNIQUE: 3-D douo-qg-uobbbz (TOF) imaging was performed with MIPs. The study was performed unenhanced. COMPARISON: MRI of the brain dated September 17, 2020 FINDINGS: Normal bilateral petrous carotid arteries. Normal right cavernous carotid artery with a normal supraclinoid bifurcation. Normal left cavernous carotid artery with a normal supraclinoid bifurcation. Normal right A1 segments of the anterior cerebral artery. Normal left A1 segments of the anterior cerebral artery. Normal intact anterior communicating artery (ACOM). Normal bilateral A2 segments of the anterior cerebral arteries. Normal right M1 and M2 segments of the middle cerebral arteries, with a normal M1 bifurcation. Normal left M1 and M2 segments of the middle cerebral arteries, with a normal M1 bifurcation. Normal right posterior communicating artery (PCOM). There is non-visualization of the left posterior communicating artery (PCOM). Normal bilateral vertebral arteries. Normal basilar artery with a normal basilar bifurcation. The visualized bilateral superior cerebellar (SCA) arteries are normal. Normal bilateral P1, P2 and visualized P3 segments of the posterior cerebral arteries. There is no demonstrated aneurysm of the [place] of [place]. There is no major vessel occlusion or hemodynamically significant stenosis. Acute infarction of the right cerebellar lobe is related to small perforating branches and does not include the major vertebrobasilar [place] of [place] of vessels. MRI/MRA Head ONLY without Contrast IMPRESSION: 1. There is no demonstrated aneurysm of the [place] of [place]. There is no major vessel occlusion or hemodynamically significant stenosis. 2. Acute infarction of the right cerebellar lobe is related to small perforating branches and does not include the major vertebrobasilar [place] of [place] of vessels. Electronically Signed: Zoltan Gay MD at 19:04 EDT , Service support ,
[2020-09-17 22:15] LABS: Bedside Glucose 181 mg/dL (70-110)
[2020-09-18] VITALS (20 sets, daily range): BP systolic 130–172; BP diastolic 64–96; PULSE 69–87; RESP 10–22; TEMP 36.6–36.9; O2SAT 93–100; BMI 26.3
[2020-09-18] MEDS: Acetaminophen 325 MG Tablet 650 MG PO ×3 (04:20→22:02)
[2020-09-18 05:31] LABS: Hematocrit 34.7 % (40-54); Hemoglobin 10.9 g/dL (13.0-16.5); Mean Corp Hgb Conc 31.4 g/dL (32-36); Mean Corpuscular Hgb 26.8 pg (27.0-32.0); Mean Corpuscular Volume 85.3 fL (80-94); Mean Platelet Vol. 10.1 fl (6.2-12.0); Platelet Count 242 K/mm3 (150-450); RBC Distribution Width CV 14.9 % (11.6-14.6); RBC Distribution Width SD 46.1 fl (35.1-43.9); Red Blood Count 4.07 M/mm3 (4.6-6.2); White Blood Count 13.6 K/mm3 (4.4-11.0)
[2020-09-18 05:45] LABS: Anion Gap 7 (5-15); BUN 32 mg/dL (7-18); BUN/Creat Ratio 34.8 RATIO (10-20); Calcium,Total 9.2 mg/dL (8.5-10.1); Chloride 102 mmol/L (98-107); Creatinine, Serum 0.92 mg/dL (0.70-1.30); EST Glomerular Filtration Rate 83 mL/min (>60); Est Glom Filt Rate - Afr Amer 100 mL/min (>60); Estimated Creatinine Clearance 44.51 ml/min; Glucose 197 mg/dL (74-106); International Normalized Ratio 1.3; Potassium 3.9 mmol/L (3.5-5.1); Prothrombin Time (Protime)PT. 15.3 SECONDS (11.7-14.9); Sodium Level 139 mmol/L (136-145)
[2020-09-18] MEDS: dexAMETHasone 4 MG/ML Vial IV ×4 (05:57→23:01)
[2020-09-18] MEDS: 0.9% Saline Lock 10 ML Syringe IV ×2 (05:58→22:03)
[2020-09-18] MEDS: Insulin Lispro 100 UNIT/ML INSULN.PEN SC ×3 (06:53→22:15)
[2020-09-18 07:01] LABS: Bedside Glucose 181 mg/dL (70-110)
--- NOTE | 2020-09-18 07:45 | TELEMED_ITS ---
[facility] has confirmed receipt of a request for visit. This document confirms receipt of the order initiating the consult. To find the results of the consultation, please view the patient's reports for the scanned Telemed Consult.
[2020-09-18] MEDS: Ceftriaxone 1 GM/50 ML BAG IV (08:40)
[2020-09-18] MEDS: Famotidine 200 MG/20 ML MDV 20 MG in 0.9% Normal Saline (Pres. free 8 ML 300 MG IV ×2 (08:41→22:02)
[2020-09-18] MEDS: Fluticasone 0.05% 1 SPRAY NASAL.SRY 2 SPRAY NASAL (08:44)
--- NOTE | 2020-09-18 09:00 | CT_ITS ---
PROCEDURE: CT GUIDED CORE NEEDLE BIOPSY OF A right lower lobe LUNG LESION INDICATION: Male, 85 years old. Right lower lobe lung mass -- CT GUIDED RT LUNG BX AT 0900 PHYSICIAN: Dr. LEONIDES Baez CONSENT: Written informed consent was obtained having explained the risks, benefits and alternatives in detail with the patient who accepted the risks and agreed to proceed. Laboratory review and clinical assessment was performed. CONSCIOUS SEDATION PROTOCOL: The Drugs used were: 1 mg Versed, IV., and 25 mcg Fentanyl, IV. The sedation time was: 25 minutes. Conscious sedation was started at 11:00 AM and terminated at 11:25 AM. The conscious sedation protocol was independently monitored. RADIATION DOSAGE (If Supplied By Facility): CTDIvol = ( 9.5 ) mGy, DLP = ( 140.62 ) mGycm Individualized dose optimization techniques were used for this CT. TECHNIQUE: The patient was placed in the prone position. A noncontrast CT was performed to localize the lesion in the posterior lateral segment of the right lower lobe . The skin surface was prepped and draped in a sterile fashion. 1% lidocaine was used for local anesthesia. Using CT guidance, a 20-gauge coaxial biopsy device was advanced to the periphery of the lesion. A total of 4 core specimens were obtained. The specimens were placed in a formalin solution. A post procedure CT demonstrated no adverse sequelae or pneumothorax. The patient tolerated the procedure well without adverse event. A negative biopsy does not exclude malignancy. Further imaging or clinical followup based on patient condition and degree of clinical suspicion for malignancy. Suggest rebiopsy, if biopsy results do not match with clinical scenario. CT/Biopsy/Inj or Needle Placement IMPRESSION: 1. CT directed core needle biopsy of the right lower lobe pulmonary nodule using CT image guidance with image documentation as described. Pathology results are pending. 2. Conscious Sedation protocol utilized with independent monitoring. Electronically Signed: Scar Peña MD at 12:21 EDT , Service support ,
--- NOTE | 2020-09-18 09:55 | PCM.PN.CARD ---
Subjectve: The patient appears to be resting comfortably with no acute cardiovascular symptoms at this time. Objective: Vital Signs Temp Pulse Resp BP Pulse Ox 98.4 F 77 18 134/75 H 96 09/18/20 08:31 09/18/20 08:31 09/18/20 08:31 09/18/20 08:31 09/18/20 08:31 Oxygen Delivery Method Room Air Weight: 148 lb 9.465 oz Body Mass Index (BMI) 26.3 Finger Stick Blood Glucose 132 Intake and Output for Last 24 Hours 09/16/20 09/17/20 09/18/20 23:59 23:59 23:59 Intake Total 605 / 605 388 / 388 200 / 200 Output Total 350 / 350 805 / 805 120 / 120 Balance 255 / 255 -417 / -417 80 / 80 General: No Acute Distress Neck: No JVD Lungs: Diminished Right Base Cardiovascular: Regular Rhythm, Premature Ectopic Beats, Normal S1, Normal S2 Abdomen: Bowel Sounds Present, Soft Extremities: Mild RLE Edema, Moderate LLE Edema Psych/Mental Status: Flat Affect 09/18/20 05:24: WBC 13.6 H, RBC 4.07 L, Hgb 10.9 L, Hct 34.7 L, MCV 85.3, MCH 26.8 L, MCHC 31.4 L, Plt Count 242, MPV 10.1 09/18/20 05:24: PT 15.3 H, INR 1.3 09/18/20 05:24: Sodium 139, Potassium 3.9, Chloride 102, Carbon Dioxide 30.0, Anion Gap 7, BUN 32 H, Creatinine 0.92, Est GFR (MDRD) Af Amer 100, Est GFR (MDRD) Non-Af 83, BUN/Creatinine Ratio 34.8 H, Glucose 197 H, Calcium 9.2 Rhythm: Sinus rhythm; PVCs Clinical Impression(s) from Imaging Studies Echocardiogram 09/17/20 05:55 Interpretation Summary Left ventricular systolic function is normal. The estimated ejection fraction is 65 %. Mild concentric left ventricular hypertrophy. The left atrium is mildly enlarged. 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 Mild mitral valve stenosis. Trivial transvalvular insufficiency of the mitral valve. Mild to moderate (1-2+) tricuspid valve insufficiency. Mild aortic stenosis. Trivial aortic valve insufficiency. Mild-Moderate (1-2+) pulmonic valve insufficiency. Trivial pericardial effusion. There are no echocardiographic indications of cardiac tamponade. Right ventricular systolic pressure estimated to be 42 mmHg. There is evidence of diastolic dysfunction. Ordering Physician: Pierre Cardoso Referring Physician: JOSE MAX Performed By: Minerva Oropeza, RDCS, RVT Brain MRI 09/17/20 21:33 IMPRESSION: 1. 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 Multiple tiny cortical infarcts in the superior aspects of the right and left parietal lobes. 3. No focal suspicious parenchymal lesions are seen and no abnormal enhancement is demonstrated. No vasogenic edema is seen that typically accompanies malignant lesions of the brain. Electronically Signed: Zoltan Gay MD at 19:02 EDT , Service support , Head MRA 09/17/20 21:33 IMPRESSION: 1. There is no demonstrated aneurysm of the [place] of [place]. There is no major vessel occlusion or hemodynamically significant stenosis. 2. Acute infarction of the right cerebellar lobe is related to small perforating branches and does not include the major vertebrobasilar [place] of [place] of vessels. Electronically Signed: Zoltan Gay MD at 19:04 EDT , Service support , Neck MRA 09/17/20 21:33 IMPRESSION: No evidence for hemodynamically significant extracranial carotid artery stenosis. Moderate narrowing at the origin of the right vertebral artery seen. Electronically Signed: Guilherme Porras MD at 16:45 EDT Medical Necessity - Tobacco Use Smoking Status: Never smoker Tobacco Use: Non-smoker Assessment/Plan 1. Abnormal cardiac enzymes The patient does have abnormal cardiac enzymes. His cardiac enzyme repeat studies have demonstrated no significant change. Also, his repeat ECG is demonstrated no significant change. At the present time there are concerns that his cardiac enzymes, without ongoing acute cardiovascular symptoms or ECG changes, may represent his acute CALIBRATION SPECIALIST findings as demonstrated by his radiologic studies. 2. 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 The results are as noted. He will continue medical therapy. At the moment there are no plans for additional cardiovascular diagnostic studies/procedures-especially invasive procedures. This could change depending upon the patient's clinical course. 3. Status post mitral valve repair He is status post mitral valve repair. His mitral valve has been reported is functioning appropriately. His mitral valve apparatus appears to be stable at this time. He should continue AHA antibiotic prophylaxis. 4. Bilateral pulmonary emboli He was diagnosed recently with bilateral pulmonary emboli. He has been on anticoagulant therapy. This will need to be continued. If it does have to be interrupted and consideration will have to be given as to how to do this to minimize risk of recurrent thromboembolic events. 5. Right lung mass He has been followed for a right lung mass. The etiology remains unclear at this time. He does need input from pulmonology and other specialties as deemed appropriate with respect to making a diagnosis to assist in his ongoing evaluation and care. 6. Postobstructive pneumonia There is concern he may have a postobstructive pneumonia based upon his clinical scenario and laboratory findings including his elevated white blood cell count. Thus he is going to be placed on antibiotic therapy. 7. Hyperlipidemia He will continue lipid-lowering therapy as deemed appropriate. 8. Hypertension His blood pressure somewhat elevated. It will need to be followed. His medicines may need to be adjusted. 9. Abnormal brain CT He does have an abnormal brain CT report. His additional radiologic studies with MRI as noted. Again these findings may be contributing to his appearance of a somewhat chronically elevated/stable troponin I level. 10. Altered mental status He does have an altered mental status. Again these findings may be related to what appears to be his acute CALIBRATION SPECIALIST related events. This note was generated using a voice recognition system and there may be incorrect words, spelling or punctuation that were not noted when reviewing the office note prior to saving.
[2020-09-18] MEDS: Midazolam 2 MG/2 ML Syringe IV (11:00)
--- NOTE | 2020-09-18 11:00 | ASPIGT_PTH ---
PATIENT: AALIYAH HOLM LOC: [facility] U#:[id number] AGE/SX: 85/M ROOM: [facility] RE09/16/[address]: Dr. Mick Middleton MD : 1935 BED: 1 DIS: 09/19/2020 SPEC #: [id number] RECD: 09/18/20 11:30 STATUS: ANGELICA BARBARA #: [id number] KYUNG: 09/18/20 11:[address]: Mick Middleton DEPT: SURGICAL PATHOLOGY RECD BY: Ritika Liegh ENTERED: 09/18/20 12:21 SP TYPE: ASP RAD OTHR DR: MD Dr. Pierre Dick MD Dr. Tai Chi Kwok, MD Tissues: Lung, NOS Procedures: FNA Specimen Adequacy Special Stain Group II Surgery Specimen Level IV Imprint (control) HEADER OPERATION: CT-guided right lung biopsy PRE-OP DIAGNOSIS: Right lung mass TISSUE SUBMITTED: Right lung mass 20 gauge core x4 MICROSCOPIC DIAGNOSIS Right lung mass, CT-guided core biopsy: Non-small cell carcinoma, favor adenocarcinoma, consistent with lung primary. See comment. SJ:mary jo 09/19/2020 COMMENT The specimen is evaluated at the time of biopsy by Dr. Carlson. Immediate Evaluation = Malignant cells present derived from non-small cell carcinoma. Extensive necrosis is also noted. Extensive necrosis is also noted. Immunohistochemistry ([id number]) supports the above diagnosis. Molecular studies on the tumor can be performed if clinically indicated. Please notify the laboratory if they are needed. Case has been reviewed in consultation with Dr. Irving who concurs with the above diagnosis. IDC:AM MICROSCOPIC DESCRIPTION Slides are reviewed. GROSS DESCRIPTION Received in fixative is one container labeled with the patient's name and designated right lung, CT-guided core biopsy. The specimen consists of multiple irregular fragments of gooden soft tissue that in aggregate measure 1 x 0.1 x <0.1 cm. The specimen is totally submitted in one cassette. Two touch imprints are prepared at the time of core biopsy. / KIMI:mary jo 09/18/20 TC:0 CPT: 36631, 71020
[2020-09-18] MEDS: fentaNYL 100 MCG/2 ML Ampul IV (11:03)
--- NOTE | 2020-09-18 11:15 | IMM_PTH ---
PATIENT: AALIYAH HOLM LOC: [facility] U#:[id number] AGE/SX: 85/M ROOM: [facility] RE09/16/[address]: Dr. Mick Middleton MD : 1935 BED: 1 DIS: 09/19/2020 SPEC #: [id number] RECD: 09/18/20 11:53 STATUS: ANGELICA REQ #: [id number] KYUNG: 09/18/20 11:[address]: Mick Middleton DEPT: IMMUNOHISTOCHEMISTRY RECD BY: Jaimee Ruggiero ENTERED: 09/18/20 11:55 SP TYPE: IMMUNO OTHR DR: MD Dr. Pierre Dick MD Dr. Tai Chi Kwok, MD Tissues: Lung, NOS Procedures: RCC (add) NAPSIN A (add) CK20 (add) CK5-6 (add) CK7 (add) CK8 (add) HEP PAR (add) TTF1 (add) Pankeratin (initial) P40 (add) PSAP (add) PHYSICIAN & [place] [phone] SPECIMEN INFORMATION: Tissue Source: Right lung, CT-guided core biopsy Clinical Info: Rule out non-small cell carcinoma Specimen Number: [id number] CPT code: 35824, 89201 x10 METHODOLOGY: Deparaffinized sections of prefer/formalin-fixed tissue or PAP/DQ stained slides are incubated with monoclonal/polyclonal antibodies/oligonucleotide probes. Localization is made via biotin free immunoperoxidase method. Appropriate controls are performed and reacted as expected. Results on target cell population are indicated in the following table: RESULTS: ANTIBODY / CLONE RESULT AE1-3 (AE1/AE3/PCK26) positive CK7 (OV-TL12/30) positive CK8 (66gufwU98) positive CK20 (KS20.8) negative TTF-1 (8G7G3/1) positive Napsin A (Rabbit Polyclonal) positive HepPar (OCh1E5) negative RCC (PN-15) negative PSAP (PASE/4LJ) negative CK5-6 (D5 & 1684) negative P40 (BC28) negative These tests were developed and their performance characteristics determined by [facility]. They may not have been cleared or approved by the U.S. Food and Drug Administration. The FDA has determined that such clearance or approval is not necessary. The above immunohistochemical/dualISH markers are ordered and reviewed by the Pathologist. INTERPRETATION: Right lung, CT-guided core biopsy: Non-small cell carcinoma, favor adenocarcinoma, consistent with lung primary. SJ:mary jo 09/19/2020
--- NOTE | 2020-09-18 11:30 | RAD_ITS ---
STUDY: X-RAY CHEST REASON FOR EXAM: Male, 85 years old. Post biopsy -- immediately post lung biopsy TECHNIQUE: AP inspiration and expiration views. COMPARISON: Comparison is made with prior examination dated 09/16/2020. FINDINGS: No evidence of pneumothorax on the immediate post right lung biopsy radiographs. RAD/Chest Insp/Exp 2 View IMPRESSION: No evidence of pneumothorax on the immediate postright lung biopsy radiographs. Electronically Signed: Scar Peña MD at 15:41 EDT , Service support ,
[2020-09-18] MEDS: Lidocaine 2% (20 ml mdv) 20 ML Vial INFILT (12:55)
[2020-09-18 13:11] LABS: Bedside Glucose 142 mg/dL (70-110)
--- NOTE | 2020-09-18 13:22 | CASEMGMT ---
Patient politely declined to complete PHQ 9. Kia Padilla HEALTH PHYSICIST RICKI
--- NOTE | 2020-09-18 13:40 | RAD_ITS ---
STUDY: X-RAY CHEST REASON FOR EXAM: Male, 85 years old. Post biopsy -- 2 hours post lung biopsy TECHNIQUE: AP inspiration and expiration views. COMPARISON: Comparison is made with prior study done earlier today. FINDINGS: No evidence of pneumothorax on the 2 hour post right lung biopsy radiographs. Stable right lower lobe mass. RAD/Chest Insp/Exp 2 View IMPRESSION: No evidence of pneumothorax on the two-hour post right lung biopsy radiographs. Electronically Signed: Scar Peña MD at 14:02 EDT , Service support ,
--- NOTE | 2020-09-18 15:38 | CM.UR ---
Pt is unsure if he wants speech therapy set up at this time. This RN CM attempted to reach but line is busy. Script for OP speech therapy left with Ray, PCU charge, in case pt discharges later today. [place] BRITANY CM
--- NOTE | 2020-09-18 16:09 | PN_ITS ---
<Crhis Lockhart - Last Filed: 09/18/20 16:09> Patient Problems: Active and Suspected Problems (Last Reviewed 09/16/20 @ 21:[address] Drake Granados MD) Postobstructive pneumonia (Acute) Occipital mass (Acute) Abnormal cardiac enzyme level (Acute) Abnormal brain CT (Acute) Mass, brain (Acute) Acute encephalopathy (Acute) Subjective: This an 85-year-old male is resting comfortably in bed, alert and oriented x3. Denies chest pain, shortness of breath, palpitations, fever, chills, N/V/D. Objective: Clinical Impression(s) from Imaging Studies Brain CT 09/16/20 18:21 IMPRESSION: Atrophy and periventricular white matter ischemic changes.. Multiple hypoattenuated lesions the largest in the right cerebellar hemisphere likely ischemic. Neoplasm not entirely excluded however MRI recommended for more definitive evaluation Electronically Signed: Randolph Mcleod MD at 19:26 EDT , Service support , Chest X-Ray 09/16/20 19:22 IMPRESSION: Persistent nodular density in the right lower lobe with increasing discoid atelectasis in the right upper lobe and consolidation in the right lower lobe Electronically Signed: Randolph Mcleod MD at 20:20 EDT , Service support , Echocardiogram 09/17/20 05:55 Interpretation Summary Left ventricular systolic function is normal. The estimated ejection fraction is 65 %. Mild concentric left ventricular hypertrophy. The left atrium is mildly enlarged. 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 Mild mitral valve stenosis. Trivial transvalvular insufficiency of the mitral valve. Mild to moderate (1-2+) tricuspid valve insufficiency. Mild aortic stenosis. Trivial aortic valve insufficiency. Mild-Moderate (1-2+) pulmonic valve insufficiency. Trivial pericardial effusion. There are no echocardiographic indications of cardiac tamponade. Right ventricular systolic pressure estimated to be 42 mmHg. There is evidence of diastolic dysfunction. Ordering Physician: Pierre Cardoso Referring Physician: JOSE MAX Performed By: Minerva Oropeza, RDCS, RVT Brain MRI 09/17/20 21:33 IMPRESSION: 1. 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 Multiple tiny cortical infarcts in the superior aspects of the right and left parietal lobes. 3. No focal suspicious parenchymal lesions are seen and no abnormal enhancement is demonstrated. No vasogenic edema is seen that typically accompanies malignant lesions of the brain. Electronically Signed: Zoltan Gay MD at 19:02 EDT , Service support , Head MRA 09/17/20 21:33 IMPRESSION: 1. There is no demonstrated aneurysm of the rampart of Garcia. There is no major vessel occlusion or hemodynamically significant stenosis. 2. Acute infarction of the right cerebellar lobe is related to small perforating branches and does not include the major vertebrobasilar rampart of Garcia of vessels. Electronically Signed: Zoltan Gay MD at 19:04 EDT , Service support , Neck MRA 09/17/20 21:[address] 09/18/20 09:00 IMPRESSION: 1. CT directed core needle biopsy of the right lower lobe pulmonary nodule using CT image guidance with image documentation as described. Pathology results are pending. 2. Conscious Sedation protocol utilized with independent monitoring. Electronically Signed: Scar Peña MD at 12:21 EDT , Service support , Chest X-Ray 09/18/20 11:30 IMPRESSION: No evidence of pneumothorax on the immediate postright lung biopsy radiographs. Electronically Signed: Scar Peña MD at 15:41 EDT , Service support , Chest X-Ray 09/18/20 13:40 IMPRESSION: No evidence of pneumothorax on the two-hour post right lung biopsy radiographs. Electronically Signed: Scar Peña MD at 14:02 EDT , Service support , Vitals/I&O's: Vital Signs Temp Pulse Resp BP Pulse Ox 97.9 F 85 18 145/79 H 94 09/18/20 13:00 09/18/20 15:30 09/18/20 13:00 09/18/20 13:00 09/18/20 13:00 Oxygen Flow Rate (L/min) [6] 2 Oxygen Flow Rate (L/min) [5] 2 Oxygen Flow Rate (L/min) [4] 2 Oxygen Flow Rate (L/min) [3] 2 Oxygen Flow Rate (L/min) [2] 2 Oxygen Flow Rate (L/min) 2 Oxygen Delivery Method [6] Nasal Cannula Oxygen Delivery Method [5] Nasal Cannula Oxygen Delivery Method [4] Nasal Cannula Oxygen Delivery Method [3] Nasal Cannula Oxygen Delivery Method [2] Nasal Cannula Oxygen Delivery Method [1 ( Room Air Initial Baseline)] Oxygen Delivery Method Room Air Weight: 148 lb 9.465 oz Body Mass Index (BMI) 26.3 Finger Stick Blood Glucose 132 Intake and Output for Last 24 Hours 09/16/20 09/17/20 09/18/20 23:59 23:59 23:59 Intake Total 605 / 605 388 / 388 215.75 / 215.75 Output Total 350 / 350 805 / 805 120 / 120 Balance 255 / 255 -417 / -417 95.75 / 95.75 General: Alert, Oriented x3, Cooperative HEENT: Atraumatic, PERRLA, EOMI, Normocephalic Neck: Supple, No JVD, Negative Carotid Bruits Lungs: Clear to auscultation, Normal air movement Cardiovascular: Regular rate, No murmurs Abdomen: Bowel Sounds Present, Soft, Non Tender Extremities: No edema, Capillary Refill Less than 3 Seconds Skin: No rashes, No breakdown Musculoskeletal: No Tenderness to Palpation of Joints or Extremities Neurological: Cranial nerves II-XII grossly intact Psych/Mental Status: Normal Affect, Appropriate Microbiology Past 72 Hours 09/16/20 18:34 Mucosa - Nose SARS-CoV-2 Antigen (Rapid) - Final Laboratory Results 09/17/20 16:26: POC Glucose 190 H 09/17/20 22:08: POC Glucose 181 H 09/18/20 05:24: WBC 13.6 H, RBC 4.07 L, Hgb 10.9 L, Hct 34.7 L, MCV 85.3, MCH 26.8 L, MCHC 31.4 L, RDW Std Deviation 46.1 H, RDW Coeff of Dinesh 14.9 H, Plt Count 242, MPV 10.1 09/18/20 05:24: PT 15.3 H, INR 1.3 09/18/20 05:24: Sodium 139, Potassium 3.9, Chloride 102, Carbon Dioxide 30.0, Anion Gap 7, BUN 32 H, Creatinine 0.92, Estim Creat Clear Calc 44.51, Est GFR (MDRD) Af Amer 100, Est GFR (MDRD) Non-Af 83, BUN/Creatinine Ratio 34.8 H, Glucose 197 H, Calcium 9.2 09/18/20 06:52: POC Glucose 181 H 09/18/20 12:54: POC Glucose 142 H Current Medications Acetaminophen (Acetaminophen 325 Mg Tablet) 650 mg PO Q6H PRN PRN PRN Reason: Pain 1-10 or Fever Last Admin: 09/18/20 04:20 Dose: 650 mg Documented by: Albuterol Sulfate (Albuterol 2.5 Mg/3 Ml Vial.Neb.) 2.5 mg INHALATION Q2H PRN PRN PRN Reason: SHORTNESS OF BREATH Dexamethasone Sodium Phosphate (Dexamethasone 4 Mg/Ml Vial) 4 mg IV Q6 [facility] Last Admin: 09/18/20 13:02 Dose: 4 mg Documented by: Enoxaparin Sodium (Enoxaparin 80 Mg/0.8 Ml Syringe) 70 mg SC Q12@0600,1800 [facility] Last Admin: 09/17/20 17:31 Dose: 70 mg Documented by: Fluticasone Propionate (Fluticasone 0.05% 1 [place] Nasal.Sry) 2 spray NASAL DAILY [facility] Last Admin: 09/18/20 08:44 Dose: 2 spray Documented by: Hydralazine HCl (Hydralazine 20 Mg/Ml Vial) 5 mg IV Q30M PRN PRN Reason: to maintain BP goals Famotidine 20 mg/ Sodium (Chloride) 10 mls @ 300 mls/hr IV Q12 [facility] Last Infusion: 09/18/20 08:54 Dose: Infused Documented by: Ceftriaxone Sodium (Rocephin) 1 gm in 50 mls @ 100 mls/hr IV Q24 [facility] Last Infusion: 09/18/20 09:30 Dose: Infused Documented by: Sodium Chloride () 250 mls @ 15 mls/hr IV .[id number] PRN PRN Reason: Saline Flush Last Infusion: 09/18/20 09:30 Dose: 15 mls/hr Documented by: Sodium Chloride () 250 mls @ 15 mls/hr IV .[id number] PRN PRN Reason: Additional IVPB Infusion Sodium Chloride () 500 mls @ 15 mls/hr IV .[id number] [facility] Stop: 09/18/20 23:59 Last Infusion: 09/18/20 12:03 Dose: 0 mls/hr Documented by: Insulin Human Lispro (Insulin Lispro 100 Unit/Ml Insuln.Pen) 0 unit SC ACHS [facility]; Protocol Last Admin: 09/18/20 12:55 Dose: Not Given Documented by: Labetalol HCl (Labetalol (Prefilled) 20 Mg/4 Ml) 10 - 20 mg IV Q10M PRN PRN PRN Reason: to Maintain BP Goals Ondansetron HCl (Ondansetron 4 Mg/2 Ml Vial) 4 mg IV Q8H PRN PRN PRN Reason: NAUSEA/VOMITING Sodium Chloride (0.9% Saline Lock 10 Ml Syringe) 10 - 40 ml IV UD PRN PRN Reason: SALINE FLUSH Last Admin: 09/18/20 05:58 Dose: 10 ml Documented by: STROKE Vital Signs/Narrative: Vital Signs Temp Pulse Resp BP Pulse Ox 09/18/20 15:30 85 09/18/20 13:00 97.9 F 72 18 145/79 H 94 09/18/20 12:20 98.2 F 69 16 139/75 H 97 Medical Necessity - Tobacco Use Smoking Status: Never smoker Tobacco Use: Non-smoker Assessment/Plan All Active Problems (Last Reviewed 09/16/20 @ 21:[address] Drake Granados MD) Postobstructive pneumonia (Acute) Occipital mass (Acute) Abnormal cardiac enzyme level (Acute) Abnormal brain CT (Acute) Mass, brain (Acute) Acute encephalopathy (Acute) Patient is an 85-year-old male who presented to the ED on 09/16/2020 with a chief complaint of slow movement, slow speech and generalized weakness. Patient was admitted for postobstructive pneumonia, occipital mass, abnormal cardiac enzymes, abnormal brain CT, acute encephalopathy. CT-guided lung biopsy of lung mass completed, results pending. Anticipate discharge tomorrow, discharge pending swallow study. 1) Acute metabolic/infectious encephalopathy Assessment -Unclear etiology, suspect result of pneumonia or underlying brain lesions Plan - Manage postobstructive pneumonia 2) Postobstructive pneumonia Assessment - Leukocytosis of 13.6 on 09/18/2020 - VS stable, no fever -O2 sats stable on room air Plan - Continue on IV Rocephin and azithromycin - Albuterol aerosols as needed 3) Multiple brain mass vs Lesions Assessment - Brain MRI; moderate acute infarct in the right cerebellar lobe, multiple corti jaun infarcts in the superior aspects of the right and left parietal lobes - Brain MRA; no demonstrated aneurysm or infarction of the rampart of Garcia - Neck MRA; moderate narrowing at the origin of the right vertebral artery Plan - Consult oncology outpatient - Swallow study ordered per speech therapy 4) History of PE Assessment - Recently suffered event on 08/03/2020 Plan - Holding Xarelto till evening of 09/19/2020 because of his recent CT biopsy 5) Elevated troponin Assessment - Echo; EF of 65%, mild to moderate tricuspid valve insufficiency, mild aortic stenosis, mild to moderate pulmonic valve insufficiency, RVSP estimated to be 42 mmHg Plan -Continue medical management 6) DM 2 Assessment - Hemoglobin A1c 6.9% Plan -Continue Accu-Cheks with sliding scale insulin DVT Prophylaxis - Xarelto on hold due to lung biopsy Patient seen by Chris Lockhart PA-C, under the supervision of Dr. Middleton. <Mick Middleton - Last Filed: 09/18/20 16:50> Vitals/I&O's: Vital Signs Temp Pulse Resp BP Pulse Ox 97.9 F 85 18 145/79 H 94 09/18/20 13:00 09/18/20 15:30 09/18/20 13:00 09/18/20 13:00 09/18/20 13:00 Oxygen Flow Rate (L/min) [6] 2 Oxygen Flow Rate (L/min) [5] 2 Oxygen Flow Rate (L/min) [4] 2 Oxygen Flow Rate (L/min) [3] 2 Oxygen Flow Rate (L/min) [2] 2 Oxygen Flow Rate (L/min) 2 Oxygen Delivery Method [6] Nasal Cannula Oxygen Delivery Method [5] Nasal Cannula Oxygen Delivery Method [4] Nasal Cannula Oxygen Delivery Method [3] Nasal Cannula Oxygen Delivery Method [2] Nasal Cannula Oxygen Delivery Method [1 ( Room Air Initial Baseline)] Oxygen Delivery Method Room Air Weight: 148 lb 9.465 oz Body Mass Index (BMI) 26.3 Finger Stick Blood Glucose 132 Intake and Output for Last 24 Hours 09/16/20 09/17/20 09/18/20 23:59 23:59 23:59 Intake Total 605 / 605 388 / 388 215.75 / 215.75 Output Total 350 / 350 805 / 805 120 / 120 Balance 255 / 255 -417 / -417 95.75 / 95.75 Microbiology Past 72 Hours 09/16/20 18:34 Mucosa - Nose SARS-CoV-2 Antigen (Rapid) - Final Laboratory Results 09/17/20 22:08: POC Glucose 181 H 09/18/20 05:24: WBC 13.6 H, RBC 4.07 L, Hgb 10.9 L, Hct 34.7 L, MCV 85.3, MCH 26.8 L, MCHC 31.4 L, RDW Std Deviation 46.1 H, RDW Coeff of Dinesh 14.9 H, Plt Count 242, MPV 10.1 09/18/20 05:24: PT 15.3 H, INR 1.3 09/18/20 05:24: Sodium 139, Potassium 3.9, Chloride 102, Carbon Dioxide 30.0, Anion Gap 7, BUN 32 H, Creatinine 0.92, Estim Creat Clear Calc 44.51, Est GFR (MDRD) Af Amer 100, Est GFR (MDRD) Non-Af 83, BUN/Creatinine Ratio 34.8 H, Glucose 197 H, Calcium 9.2 09/18/20 06:52: POC Glucose 181 H 09/18/20 12:54: POC Glucose 142 H Current Medications Acetaminophen (Acetaminophen 325 Mg Tablet) 650 mg PO Q6H PRN PRN PRN Reason: Pain 1-10 or Fever Last Admin: 09/18/20 16:16 Dose: 650 mg Documented by: Albuterol Sulfate (Albuterol 2.5 Mg/3 Ml Vial.Neb.) 2.5 mg INHALATION Q2H PRN PRN PRN Reason: SHORTNESS OF BREATH Dexamethasone Sodium Phosphate (Dexamethasone 4 Mg/Ml Vial) 4 mg IV Q6 [facility] Last Admin: 09/18/20 13:02 Dose: 4 mg Documented by: Enoxaparin Sodium (Enoxaparin 80 Mg/0.8 Ml Syringe) 70 mg SC Q12@0600,1800 [facility] Last Admin: 09/17/20 17:31 Dose: 70 mg Documented by: Fluticasone Propionate (Fluticasone 0.05% 1 [place] Nasal.Sry) 2 spray NASAL DAILY [facility] Last Admin: 09/18/20 08:44 Dose: 2 spray Documented by: Hydralazine HCl (Hydralazine 20 Mg/Ml Vial) 5 mg IV Q30M PRN PRN Reason: to maintain BP goals Famotidine 20 mg/ Sodium (Chloride) 10 mls @ 300 mls/hr IV Q12 [facility] Last Infusion: 09/18/20 08:54 Dose: Infused Documented by: Ceftriaxone Sodium (Rocephin) 1 gm in 50 mls @ 100 mls/hr IV Q24 [facility] Last Infusion: 09/18/20 09:30 Dose: Infused Documented by: Sodium Chloride () 250 mls @ 15 mls/hr IV .[id number] PRN PRN Reason: Saline Flush Last Infusion: 09/18/20 09:30 Dose: 15 mls/hr Documented by: Sodium Chloride () 250 mls @ 15 mls/hr IV .[id number] PRN PRN Reason: Additional IVPB Infusion Sodium Chloride () 500 mls @ 15 mls/hr IV .[id number] [facility] Stop: 09/18/20 23:59 Last Infusion: 09/18/20 12:03 Dose: 0 mls/hr Documented by: Insulin Human Lispro (Insulin Lispro 100 Unit/Ml Insuln.Pen) 0 unit SC [facility]; Protocol Last Admin: 09/18/20 12:55 Dose: Not Given Documented by: Labetalol HCl (Labetalol (Prefilled) 20 Mg/4 Ml) 10 - 20 mg IV Q10M PRN PRN PRN Reason: to Maintain BP Goals Ondansetron HCl (Ondansetron 4 Mg/2 Ml Vial) 4 mg IV Q8H PRN PRN PRN Reason: NAUSEA/VOMITING Sodium Chloride (0.9% Saline Lock 10 Ml Syringe) 10 - 40 ml IV UD PRN PRN Reason: SALINE FLUSH Last Admin: 09/18/20 05:58 Dose: 10 ml Documented by: STROKE Vital Signs/Narrative: Vital Signs Temp Pulse Resp BP Pulse Ox 09/18/20 15:30 85 09/18/20 13:00 97.9 F 72 18 145/79 H 94 Addendum: Dr. Middleton I personally examined the patient and reviewed the chart. I agree with the above. 85-year-old male presents with slow speech and initially thought to be a CVA. He thought that he may have overdosed on GERD medication. Per him and the he is much better today and is back to his normal self. However in the process of working him up for the possible CVA he had a CT scan of his brain which demonstrated a possible mass versus infarct especially in the setting of a right lower lobe lung mass that was found about a month ago on CT scan. He still has that lung mass on chest x-ray and therefore we will plan for CT-guided biopsy in the morning and currently pending MRI evaluation of this brain lesion. He was recently diagnosed with bilateral PEs and he did not receive his Xarelto yesterday evening. He was transitioned to therapeutic Lovenox which we will hold after tonight's dose in preparation for the CT-guided biopsy. After his biopsy will hold all anticoagulation for 24 hours and he can restart his Xarelto Tuesday evening. As for his cardiac function and his elevated troponins, cardiology feels that we should be able to manage him medically for now. There is concern for postobstructive pneumonia secondary to the right lower lobe mass, will continue with Rocephin and azithromycin, leukocytosis has resolved. 09/18/2020: Doing about the same today. His confusion and slow mentation has resolved however MRI did demonstrate a stroke in the cerebellum as well as tiny bilateral cortical infarcts. He does seem to be asymptomatic from the strokes, however the biggest risk is the fact that he has a right lower lobe lung mass that could potentially be cancerous that is leading to his hypercoagulable state given the fact that he recently had bilateral PEs and now has a stroke. I did discuss with him and his about the risk for hemorrhagic conversion versus the risk of repeated strokes if we do not reinitiate anticoagulation fairly soon. I did discuss with him also the possibility of transition from Xarelto to Eliquis given the fact that Eliquis is dosed twice daily could provide at least some breathing room in terms of bleeding risk compared to Xarelto. He does not feel ready for discharge today therefore we will keep him another day and hopefully his will be able to come to the hospital tomorrow so she can be taught how to feed him secondary to speech therapy recommendations. He is a nectar thick liquid with small bites and needing to alternate food with liquid with head of bed at 90 degrees and to remain sitting upright for 30 minutes after eating. He does not need a swallow study. Inpatient E&M: 61171 Subs Hosp L2
[2020-09-18 17:30] LABS: Bedside Glucose 230 mg/dL (70-110)
--- NOTE | 2020-09-18 21:16 | EKG12_ITS ---
Test Reason : CP Blood Pressure : / mmHG Vent. Rate : 082 BPM Atrial Rate : 082 BPM P-R Int : 174 ms QRS Dur : 094 ms QT Int : 368 ms P-R-T Axes : 048 -15 006 degrees QTc Int : 429 ms Normal sinus rhythm Normal ECG When compared with ECG of 17-SEP-2020 03:47, No significant change was found Confirmed by NILES PEARCE, OMAR ([id number]), online editor ROCKY PICHARDO ([id number]) on 09/26/2020 3:09:03 PM Referred By: ZORAN Confirmed By:OMAR CAGE MD
[2020-09-18] MEDS: Morphine 2 MG/ML Syringe IV (22:01)
[2020-09-18 22:21] LABS: Bedside Glucose 242 mg/dL (70-110)
[2020-09-19 02:49] VITALS: BMI 26.3
[2020-09-19 03:37] VITALS: PULSE 74
[2020-09-19 05:06] VITALS: BP 146/55; PULSE 72; RESP 16; TEMP 36.6; O2SAT 97
[2020-09-19] MEDS: dexAMETHasone 4 MG/ML Vial IV (05:06)
[2020-09-19 07:00] VITALS: PULSE 69
[2020-09-19] MEDS: Insulin Lispro 100 UNIT/ML INSULN.PEN SC ×2 (07:10→11:50)
[2020-09-19 07:15] LABS: Bedside Glucose 157 mg/dL (70-110)
--- NOTE | 2020-09-19 07:26 | CT_ITS ---
STUDY: CT BRAIN WITHOUT CONTRAST REASON FOR EXAM: Male, 85 years old. Evaluation for hemorrhagic conversion RADIATION DOSAGE (If Supplied By Facility): CTDIvol = ( 44.99 ) mGy, DLP = ( 829.85 ) mGycm TECHNIQUE: Transaxial CT imaging of the brain was performed without administration of intravenous contrast material. Individualized dose optimization techniques were used for this CT. COMPARISON: Comparison to prior study dated 09/16/2020. FINDINGS: Normal soft tissue structures. Normal calvarium. There is mild cerebral atrophy with widening of the extra-axial spaces and ventricular dilatation. There are areas of decreased attenuation within the white matter tracts of the supratentorial brain, consistent with microvascular disease changes. Focal area of the encephalomalacia in the insular cortex of the left temporal lobe. Normal brainstem. Stable encephalomalacia in the right cerebellar hemisphere. There is no intracranial hemorrhage. There are no findings of an acute ischemic infarction. Normal visualized paranasal sinuses. CT/Brain/Head without Contrast IMPRESSION: Chronic involutional changes of the brain. Stable encephalomalacia in the right cerebellar hemisphere. Electronically Signed: Scar Peña MD at 11:48 EDT , Service support ,
[2020-09-19 07:31] VITALS: O2SAT 95
[2020-09-19 09:18] VITALS: BP 163/83; PULSE 73; RESP 14; TEMP 36.4; O2SAT 96
[2020-09-19] MEDS: Fluticasone 0.05% 1 SPRAY NASAL.SRY 2 SPRAY NASAL (09:21)
[2020-09-19] MEDS: Famotidine 200 MG/20 ML MDV 20 MG in 0.9% Normal Saline (Pres. free 8 ML 300 MG IV (09:22)
[2020-09-19] MEDS: Ceftriaxone 1 GM/50 ML BAG IV (09:23)
--- NOTE | 2020-09-19 09:47 | PCM.PN.CARD ---
Subjectve: The patient appears to be awake and alert. He has been up in the chair. He has no new acute cardiovascular complaints. Objective: Vital Signs Temp Pulse Resp BP Pulse Ox 97.6 F L 73 14 163/83 H 96 09/19/20 09:18 09/19/20 09:18 09/19/20 09:18 09/19/20 09:18 09/19/20 09:18 Oxygen Flow Rate (L/min) [6] 2 Oxygen Flow Rate (L/min) [5] 2 Oxygen Flow Rate (L/min) [4] 2 Oxygen Flow Rate (L/min) [3] 2 Oxygen Flow Rate (L/min) [2] 2 Oxygen Flow Rate (L/min) 2 Oxygen Delivery Method [6] Nasal Cannula Oxygen Delivery Method [5] Nasal Cannula Oxygen Delivery Method [4] Nasal Cannula Oxygen Delivery Method [3] Nasal Cannula Oxygen Delivery Method [2] Nasal Cannula Oxygen Delivery Method [1 ( Room Air Initial Baseline)] Oxygen Delivery Method Room Air Weight: 148 lb 9.465 oz Body Mass Index (BMI) 26.3 Finger Stick Blood Glucose 132 Intake and Output for Last 24 Hours 09/17/20 09/18/20 09/19/20 23:59 23:59 23:59 Intake Total 388 / 388 343.75 / 343.75 Output Total 805 / 805 120 / 120 Balance -417 / -417 223.75 / 223.75 General: Awake, Alert, Oriented x 3, Cooperative, No Acute Distress HEENT: Atraumatic, Normocephalic, PERRL, EOMI, Sclera Non Icteric Neck: Supple, Good ROM, No JVD Lungs: Diminished Right Base Cardiovascular: Regular Rhythm, Normal S1, Normal S2 Abdomen: Bowel Sounds Present, Soft Extremities: No edema Psych/Mental Status: Flat Affect 09/18/20 22:45: Troponin I 0.542 H 09/19/20 01:42: Troponin I 0.526 H 09/19/20 04:50: Troponin I 0.587 H Rhythm: Sinus rhythm Medical Necessity - Tobacco Use Smoking Status: Never smoker Tobacco Use: Non-smoker Assessment/Plan 1. Abnormal cardiac enzymes The patient does have abnormal cardiac enzymes. His cardiac enzyme repeat studies have demonstrated no significant change. Also, his repeat ECG is demonstrated no significant change. At the present time there are concerns that his cardiac enzymes, without ongoing acute cardiovascular symptoms or ECG changes, may represent his acute [employer] findings as demonstrated by his radiologic studies. 2. 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 The results are as noted. He will continue medical therapy. At the moment there are no plans for additional cardiovascular diagnostic studies/procedures-especially invasive procedures. This could change depending upon the patient's clinical course. 3. Status post mitral valve repair He is status post mitral valve repair. His mitral valve has been reported is functioning appropriately. His mitral valve apparatus appears to be stable at this time. He should continue AHA antibiotic prophylaxis. 4. Bilateral pulmonary emboli He was diagnosed recently with bilateral pulmonary emboli. He has been on anticoagulant therapy. This will need to be continued. 5. Right lung mass He has been followed for a right lung mass. The etiology remains unclear at this time. Has undergone further evaluation with CT-guided fine-needle biopsy. The results are pending. 6. Postobstructive pneumonia There is concern he may have a postobstructive pneumonia based upon his clinical scenario and laboratory findings including his elevated white blood cell count. Thus he is going to be placed on antibiotic therapy. 7. Hyperlipidemia He will continue lipid-lowering therapy as deemed appropriate. 8. Hypertension His blood pressure somewhat elevated. It will need to be followed. His medicines may need to be adjusted. 9. Abnormal brain CT He does have an abnormal brain CT report. His additional radiologic studies with MRI as noted. Again these findings may be contributing to his appearance of a somewhat chronically elevated/stable troponin I level. 10. Altered mental status He does have an altered mental status. Again these findings may be related to what appears to be his acute [employer] related events. Overall, at the present time, the patient is continuing noncardiac evaluation. There are no immediate plans for additional cardiac diagnostic studies, etc., barring a change in the patient's overall clinical course. The patient's case has been discussed and reviewed with Dr. Middelton. This note was generated using a voice recognition system and there may be incorrect words, spelling or punctuation that were not noted when reviewing the office note prior to saving.
--- NOTE | 2020-09-19 10:17 | DCINST_ITS ---
- Discharge Diagnoses Current Active Problems: Current Active and Chronic Problems (Last Reviewed 09/16/20 @ 21:[address] 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) Postobstructive pneumonia (Acute) Occipital mass (Acute) Abnormal cardiac enzyme level (Acute) CAD (coronary artery disease) (Chronic) Abnormal brain CT (Acute) Mass, brain (Acute) Acute encephalopathy (Acute) History of mitral valve repair (Chronic ~12/05/96) annuloplasty 31mm Mildred [place] ring 12/05/96 Presence of stent in coronary artery (Chronic ~09/03/14) PTCA/JODY PDA and PTCA/JODY in distal RCA to prox Rt posterior atrioventricular artery 09/03/14 Pure hypercholesterolemia (Chronic) Essential hypertension (Chronic) Non-rheumatic mitral regurgitation (Chronic) Atherosclerotic heart disease of [place] coronary artery without angina pectoris (Chronic) Encounter for long-term current use of high risk medication (Chronic) Carotid bruit (Chronic) Palpitations (Chronic) S/P CABG x 1 (Chronic ~12/05/96) CABG X1- MELENDEZ graft to LAD and Mitral annuloplasty using #31 MM ring November 1996 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) You will use the following diet at home:: No restrictions Your food should be the consistency of: Regular Your liquids should be the consistency of: Regular/Thin Discharge Activity: Return to Normal Activity Instructions: CT-Guided Lung Biopsy, Discharge Instructions Needle Biopsy: Lung, ED Procedural Sedation, (Adult) Allergies/Adverse Reactions: Allergies amlodipine Adverse Reaction (Severe, Verified 09/16/20 18:15) Swelling of feet isosorbide Adverse Reaction (Severe, Verified 09/16/20 18:15) Swelling of feet losartan Adverse Reaction (Severe, Verified 09/16/20 18:15) Loss of Appetite Kvlikad-Kwe-Bpu Reductase Inhibitor Adverse Reaction (Verified 09/16/20 18:15) Upset Stomach Medications to take at Discharge Aspirin [Aspirin, Baby] 81 mg PO QHS 08/25/14 Fluticasone 0.05% [Flonase Nasal [place]] 2 spray NASAL DAILY 08/24/18 Hydrochlorothiazide [Hctz] 25 mg PO DAILY 08/24/18 Metoprolol Tartrate [Lopressor (beta jenni)] 12.5 mg PO BID 08/24/18 fexofenadine 180 mg tablet 180 mg PO BID 05/31/19 carbidopa 25 mg-levodopa 100 mg tablet 1 tab PO TID 03/03/20 enalapril maleate 20 mg tablet 10 mg PO DAILY tab 03/03/20 ketoconazole 2 % shampoo 1 applic TOPICAL 2XW 03/03/20 nitroglycerin 0.4 mg sublingual tablet 0.4 mg SUBLINGUAL Q5-15M #25 tab 03/03/20 triamcinolone acetonide 0.1 % topical cream 1 applic TOPICAL DAILY PRN 03/03/20 Carbidopa/Levodopa [Carbidopa-Levo ER 50-200 Tab] 50 - 200 tab PO QHS 08/03/20 Potassium Chloride 20 meq PO DAILY 08/03/20 Allopurinol 100 mg PO DAILY 08/04/20 Acetaminophen [Tylenol Tablet] 650 mg PO Q6H PRN PRN tab 08/05/20 Amoxicillin 4 tablet PO .COMPLEX 09/16/20 Famotidine 40 mg PO DAILY 09/16/20 Ondansetron HCl 4 mg PO Q8H PRN 09/16/20 Apixaban [Eliquis] 5 mg PO BID #60 tablet 09/19/20 Cefdinir [Omnicef [equiv]] 300 mg PO Q12H #8 capsule 09/19/20 The following prescriptions were given: Apixaban [Eliquis] 5 mg PO BID #60 tablet Transmission Status: Pending to [facility] Cefdinir [Omnicef [equiv]] 300 mg PO Q12H #8 capsule Transmission Status: Pending to [facility] Primary Care Physician: Johnson Tavarez Chi, MD [Primary Care Provider] - Please follow up with your Primary Care Physician in: Within the next 2 weeks Test Results: Test results from this visit will be discussed in further detail at your follow- up appointment, if applicable. Please Follow Up With: Oncology When: Within the next 2 weeks
--- NOTE | 2020-09-19 10:38 | PCM.PN.HOSP ---
Patient Problems: Active and Suspected Problems (Last Reviewed 09/16/20 @ 21:[address] Drake Granados MD) Postobstructive pneumonia (Acute) Occipital mass (Acute) Abnormal cardiac enzyme level (Acute) Abnormal brain CT (Acute) Mass, brain (Acute) Acute encephalopathy (Acute) Subjective: Patient is an 85-year-old male comfortably resting in bed, alert and oriented x3. Patient still having difficulty answering questions appropriately, difficult to know how much patient is actually comprehending. Denies chest pain, shortness of breath, palpitations, fever, chills, N/V/D. Objective: Clinical Impression(s) from Imaging Studies Brain CT 09/16/20 18:21 IMPRESSION: Atrophy and periventricular white matter ischemic changes.. Multiple hypoattenuated lesions the largest in the right cerebellar hemisphere likely ischemic. Neoplasm not entirely excluded however MRI recommended for more definitive evaluation Electronically Signed: Randolph Mcleod MD at 19:26 EDT , Service support , Chest X-Ray 09/16/20 19:22 IMPRESSION: Persistent nodular density in the right lower lobe with increasing discoid atelectasis in the right upper lobe and consolidation in the right lower lobe Electronically Signed: Randolph Mcleod MD at 20:20 EDT , Service support , Echocardiogram 09/17/20 05:55 Interpretation Summary Left ventricular systolic function is normal. The estimated ejection fraction is 65 %. Mild concentric left ventricular hypertrophy. The left atrium is mildly enlarged. 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 Mild mitral valve stenosis. Trivial transvalvular insufficiency of the mitral valve. Mild to moderate (1-2+) tricuspid valve insufficiency. Mild aortic stenosis. Trivial aortic valve insufficiency. Mild-Moderate (1-2+) pulmonic valve insufficiency. Trivial pericardial effusion. There are no echocardiographic indications of cardiac tamponade. Right ventricular systolic pressure estimated to be 42 mmHg. There is evidence of diastolic dysfunction. Ordering Physician: Pierre Cardoso Referring Physician: JOSE MAX Performed By: Minerva Oropeza, RDCS, RVT Brain MRI 09/17/20 21:33 IMPRESSION: 1. 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 Multiple tiny cortical infarcts in the superior aspects of the right and left parietal lobes. 3. No focal suspicious parenchymal lesions are seen and no abnormal enhancement is demonstrated. No vasogenic edema is seen that typically accompanies malignant lesions of the brain. Electronically Signed: Zoltan Gay MD at 19:02 EDT , Service support , Head MRA 09/17/20 21:33 IMPRESSION: 1. There is no demonstrated aneurysm of the [place]. There is no major vessel occlusion or hemodynamically significant stenosis. 2. Acute infarction of the right cerebellar lobe is related to small perforating branches and does not include the major vertebrobasilar [place] of vessels. Electronically Signed: Zoltan Gya MD at 19:04 EDT , Service support , Neck MRA 09/17/20 21:[address] 09/18/20 09:00 IMPRESSION: 1. CT directed core needle biopsy of the right lower lobe pulmonary nodule using CT image guidance with image documentation as described. Pathology results are pending. 2. Conscious Sedation protocol utilized with independent monitoring. Electronically Signed: Scar Peña MD at 12:21 EDT , Service support , Chest X-Ray 09/18/20 11:30 IMPRESSION: No evidence of pneumothorax on the immediate postright lung biopsy radiographs. Electronically Signed: Scar Peña MD at 15:41 EDT , Service support , Chest X-Ray 09/18/20 13:40 IMPRESSION: No evidence of pneumothorax on the two-hour post right lung biopsy radiographs. Electronically Signed: Scar Peña MD at 14:02 EDT , Service support , Microbiology 09/16/20 18:34 Mucosa - Nose SARS-CoV-2 Antigen (Rapid) - Final Vitals/I&O's: Vital Signs Temp Pulse Resp BP Pulse Ox 97.6 F L 73 14 163/83 H 96 09/19/20 09:18 09/19/20 09:18 09/19/20 09:18 09/19/20 09:18 09/19/20 09:18 Oxygen Flow Rate (L/min) [6] 2 Oxygen Flow Rate (L/min) [5] 2 Oxygen Flow Rate (L/min) [4] 2 Oxygen Flow Rate (L/min) [3] 2 Oxygen Flow Rate (L/min) [2] 2 Oxygen Flow Rate (L/min) 2 Oxygen Delivery Method [6] Nasal Cannula Oxygen Delivery Method [5] Nasal Cannula Oxygen Delivery Method [4] Nasal Cannula Oxygen Delivery Method [3] Nasal Cannula Oxygen Delivery Method [2] Nasal Cannula Oxygen Delivery Method [1 ( Room Air Initial Baseline)] Oxygen Delivery Method Room Air Weight: 148 lb 9.465 oz Body Mass Index (BMI) 26.3 Finger Stick Blood Glucose 132 Intake and Output for Last 24 Hours 09/17/20 09/18/20 09/19/20 23:59 23:59 23:59 Intake Total 388 / 388 343.75 / 343.75 60 / 60 Output Total 805 / 805 120 / 120 Balance -417 / -417 223.75 / 223.75 60 / 60 Microbiology Past 72 Hours 09/16/20 18:34 Mucosa - Nose SARS-CoV-2 Antigen (Rapid) - Final Laboratory Results 09/18/20 12:54: POC Glucose 142 H 09/18/20 17:19: POC Glucose 230 H 09/18/20 22:13: POC Glucose 242 H 09/18/20 22:45: Troponin I 0.542 H 09/19/20 01:42: Troponin I 0.526 H 09/19/20 04:50: Troponin I 0.587 H 09/19/20 07:08: POC Glucose 157 H Current Medications Acetaminophen (Acetaminophen 325 Mg Tablet) 650 mg PO Q6H PRN PRN PRN Reason: Pain 1-10 or Fever Last Admin: 09/18/20 22:02 Dose: 650 mg Documented by: Albuterol Sulfate (Albuterol 2.5 Mg/3 Ml Vial.Neb.) 2.5 mg INHALATION Q2H PRN PRN PRN Reason: SHORTNESS OF BREATH Dexamethasone Sodium Phosphate (Dexamethasone 4 Mg/Ml Vial) 4 mg IV Q6 [facility] Last Admin: 09/19/20 05:06 Dose: 4 mg Documented by: Enoxaparin Sodium (Enoxaparin 80 Mg/0.8 Ml Syringe) 70 mg SC Q12@0600,1800 [facility] Last Admin: 09/17/20 17:31 Dose: 70 mg Documented by: Fluticasone Propionate (Fluticasone 0.05% 1 [place] Nasal.Sry) 2 spray NASAL DAILY [facility] Last Admin: 09/19/20 09:21 Dose: 2 spray Documented by: Hydralazine HCl (Hydralazine 20 Mg/Ml Vial) 5 mg IV Q30M PRN PRN Reason: to maintain BP goals Famotidine 20 mg/ Sodium (Chloride) 10 mls @ 300 mls/hr IV Q12 [facility] Last Infusion: 09/19/20 09:33 Dose: Infused Documented by: Ceftriaxone Sodium (Rocephin) 1 gm in 50 mls @ 100 mls/hr IV Q24 [facility] Last Infusion: 09/19/20 10:29 Dose: Infused Documented by: Sodium Chloride () 250 mls @ 15 mls/hr IV .[id number] PRN PRN Reason: Saline Flush Last Infusion: 09/18/20 17:22 Dose: 0 mls/hr Documented by: Sodium Chloride () 250 mls @ 15 mls/hr IV .[id number] PRN PRN Reason: Additional IVPB Infusion Insulin Human Lispro (Insulin Lispro 100 Unit/Ml Insuln.Pen) 0 unit [facility]; Protocol Last Admin: 09/19/20 07:10 Dose: 1 units Documented by: Labetalol HCl (Labetalol (Prefilled) 20 Mg/4 Ml) 10 - 20 mg IV Q10M PRN PRN PRN Reason: to Maintain BP Goals Morphine Sulfate (Morphine 2 Mg/Ml Syringe) 2 mg IV Q3H PRN PRN PRN Reason: pain 4-1010 Last Admin: 09/18/20 22:01 Dose: 2 mg Documented by: Ondansetron HCl (Ondansetron 4 Mg/2 Ml Vial) 4 mg IV Q8H PRN PRN PRN Reason: NAUSEA/VOMITING Sodium Chloride (0.9% Saline Lock 10 Ml Syringe) 10 - 40 ml IV UD PRN PRN Reason: SALINE FLUSH Last Admin: 09/18/20 22:03 Dose: 10 ml Documented by: STROKE Vital Signs/Narrative: Vital Signs Temp Pulse Resp BP Pulse Ox 09/19/20 09:18 97.6 F L 73 14 163/83 H 96 09/19/20 07:31 95 09/19/20 07:00 69 Medical Necessity - Tobacco Use Smoking Status: Never smoker Tobacco Use: Non-smoker Assessment/Plan All Active Problems (Last Reviewed 09/16/20 @ 21:[address] Drake Granados MD) Postobstructive pneumonia (Acute) Occipital mass (Acute) Abnormal cardiac enzyme level (Acute) Abnormal brain CT (Acute) Mass, brain (Acute) Acute encephalopathy (Acute)
--- NOTE | 2020-09-19 10:55 | CASEMGMT ---
Addendum entered by Pattie Franks 09/19/20 11:56: This RN CM to room to discuss OP speech and Eliquis with . is updated on all, voices understanding and states would like OP speech script faxed to [facility]. Script to pt and copy faxed to [facility] and aware that they will call her to set up appt, voices understanding. is updated on Eliquis cost and provided 30day free trial card with explanation, voices understanding. voices no further questions/concerns/needs. Pt is in agreement with all but is perseverating on the skin tear on his arm and whether a bandage will be placed at discharge and whether he can do therapy with the bandage/skin tear while this RN CM at bedside. Pt is aware that it's only speech therapy as he did well with PT/OT and pt voices understanding. Pt/ voice no concerns with going home and no further questions/concerns/needs. Bernardo GARG CM Original Note: Pt to be sent home on Eliquis at discharge and [facility]. [facility] to check coverage/co-pay and per [place], pt's co-pay is $316.61 which is most likely deductible. Pt/ to be provided with Eliquis 30 day free trial card with explanation prior to discharge and this RN CM to discuss OP therapy with as well as pt reluctant to make decision. CM to follow. Bernardo GARG CM
--- NOTE | 2020-09-19 11:04 | PCM.DC.SUM ---
<Chris Lockhart - Last Filed: 09/19/20 11:04> Discharge Date and Diagnosis - Problem List Patient Problems: Active and Suspected Problems (Last Reviewed 09/16/20 @ 21:[address] Drake Granados MD) Postobstructive pneumonia (Acute) Occipital mass (Acute) Abnormal cardiac enzyme level (Acute) Abnormal brain CT (Acute) Mass, brain (Acute) Acute encephalopathy (Acute) Date of Admission: 09/16/20 Date of Discharge: 09/19/20 - Primary Discharge Diagnosis Acute Problems: Active Problems (Last Reviewed 09/16/20 @ 21:[address] Drake Granados MD) Postobstructive pneumonia (Acute) Occipital mass (Acute) Abnormal cardiac enzyme level (Acute) Abnormal brain CT (Acute) Mass, brain (Acute) Acute encephalopathy (Acute) - Secondary Discharge Diagnosis Chronic Problems: Chronic Problems (Last Reviewed 09/16/20 @ 21:[address] 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) CAD (coronary artery disease) (Chronic) History of mitral valve repair (Chronic ~12/05/96) annuloplasty 31mm Mildred Austin ring 12/05/96 Presence of stent in coronary artery (Chronic ~09/03/14) PTCA/JODY PDA and PTCA/JODY in distal RCA to prox Rt posterior atrioventricular artery 09/03/14 Pure hypercholesterolemia (Chronic) Essential hypertension (Chronic) Non-rheumatic mitral regurgitation (Chronic) Atherosclerotic heart disease of enterprise coronary artery without angina pectoris (Chronic) Encounter for long-term current use of high risk medication (Chronic) Carotid bruit (Chronic) Palpitations (Chronic) S/P CABG x 1 (Chronic ~12/05/96) CABG X1- MELENDEZ graft to LAD and Mitral annuloplasty using #31 MM ring November 1996 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 Multiple hypoattenuated lesions the largest in the right cerebellar hemisphere likely ischemic. Neoplasm not entirely excluded however MRI recommended for more definitive evaluation Electronically Signed: Randolph Mcleod MD at 19:26 EDT , Service support , Chest X-Ray 09/16/20 19:22 IMPRESSION: Persistent nodular density in the right lower lobe with increasing discoid atelectasis in the right upper lobe and consolidation in the right lower lobe Electronically Signed: Randolph Mcleod MD at 20:20 EDT , Service support , Echocardiogram 09/17/20 05:55 Interpretation Summary Left ventricular systolic function is normal. The estimated ejection fraction is 65 %. Mild concentric left ventricular hypertrophy. The left atrium is mildly enlarged. 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 Mild mitral valve stenosis. Trivial transvalvular insufficiency of the mitral valve. Mild to moderate (1-2+) tricuspid valve insufficiency. Mild aortic stenosis. Trivial aortic valve insufficiency. Mild-Moderate (1-2+) pulmonic valve insufficiency. Trivial pericardial effusion. There are no echocardiographic indications of cardiac tamponade. Right ventricular systolic pressure estimated to be 42 mmHg. There is evidence of diastolic dysfunction. Ordering Physician: Pierre Cardoso Referring Physician: JOHNSON TAVAREZ Performed By: Minerva Oropeza, RDCS, RVT Brain MRI 09/17/20 21:33 IMPRESSION: 1. 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 Multiple tiny cortical infarcts in the superior aspects of the right and left parietal lobes. 3. No focal suspicious parenchymal lesions are seen and no abnormal enhancement is demonstrated. No vasogenic edema is seen that typically accompanies malignant lesions of the brain. Electronically Signed: Zoltan Gay MD at 19:02 EDT , Service support , Head MRA 09/17/20 21:33 IMPRESSION: 1. There is no demonstrated aneurysm of the [place]. There is no major vessel occlusion or hemodynamically significant stenosis. 2. Acute infarction of the right cerebellar lobe is related to small perforating branches and does not include the major vertebrobasilar [place] of vessels. Electronically Signed: Zoltan Gay MD at 19:04 EDT , Service support , Neck MRA 09/17/20 21:[address] 09/18/20 09:00 IMPRESSION: 1. CT directed core needle biopsy of the right lower lobe pulmonary nodule using CT image guidance with image documentation as described. Pathology results are pending. 2. Conscious Sedation protocol utilized with independent monitoring. Electronically Signed: Scar Peña MD at 12:21 EDT , Service support , Chest X-Ray 09/18/20 11:30 IMPRESSION: No evidence of pneumothorax on the immediate postright lung biopsy radiographs. Electronically Signed: Scar Peña MD at 15:41 EDT , Service support , Chest X-Ray 09/18/20 13:40 IMPRESSION: No evidence of pneumothorax on the two-hour post right lung biopsy radiographs. Electronically Signed: Scar Peña MD at 14:02 EDT , Service support , Microbiology 09/16/20 18:34 Mucosa - Nose SARS-CoV-2 Antigen (Rapid) - Final Clinical Impression(s) from Imaging Studies Brain CT 09/16/20 18:21 IMPRESSION: Atrophy and periventricular white matter ischemic changes.. Multiple hypoattenuated lesions the largest in the right cerebellar hemisphere likely ischemic. Neoplasm not entirely excluded however MRI recommended for more definitive evaluation Electronically Signed: Randolph Mcleod MD at 19:26 EDT , Service support , Chest X-Ray 09/16/20 19:22 IMPRESSION: Persistent nodular density in the right lower lobe with increasing discoid atelectasis in the right upper lobe and consolidation in the right lower lobe Electronically Signed: Randolph Mcleod MD at 20:20 EDT , Service support , Echocardiogram 09/17/20 05:55 Interpretation Summary Left ventricular systolic function is normal. The estimated ejection fraction is 65 %. Mild concentric left ventricular hypertrophy. The left atrium is mildly enlarged. 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 Mild mitral valve stenosis. Trivial transvalvular insufficiency of the mitral valve. Mild to moderate (1-2+) tricuspid valve insufficiency. Mild aortic stenosis. Trivial aortic valve insufficiency. Mild-Moderate (1-2+) pulmonic valve insufficiency. Trivial pericardial effusion. There are no echocardiographic indications of cardiac tamponade. Right ventricular systolic pressure estimated to be 42 mmHg. There is evidence of diastolic dysfunction. Ordering Physician: Pierre Cardoso Referring Physician: JOHNSON TAVAREZ Performed By: Minerva Oropeza, RDCS, RVT Brain MRI 09/17/20 21:33 IMPRESSION: 1. 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 Multiple tiny cortical infarcts in the superior aspects of the right and left parietal lobes. 3. No focal suspicious parenchymal lesions are seen and no abnormal enhancement is demonstrated. No vasogenic edema is seen that typically accompanies malignant lesions of the brain. Electronically Signed: Zoltan Gay MD at 19:02 EDT , Service support , Head MRA 09/17/20 21:33 IMPRESSION: 1. There is no demonstrated aneurysm of the [place]. There is no major vessel occlusion or hemodynamically significant stenosis. 2. Acute infarction of the right cerebellar lobe is related to small perforating branches and does not include the major vertebrobasilar [place] of vessels. Electronically Signed: Zoltan Gay MD at 19:04 EDT , Service support , Operations: None Summary of Care Provided: Patient is an 85-year-old male who presented to the ED on 09/16/2020 with a chief complaint of slow movement, slow speech and generalized weakness. Patient was admitted for what was thought to be a CVA. Brain MRI did reveal a moderate acute infarct of the right cerebellar lobe and multiple corticle infarcts in the superior aspects of the right and left parietal lobe. Additional imaging did reveal a large brain mass as well as a lung mass. CT-guided lung biopsy of lung mass completed, results pending. Patient to be switched from Xarelto to Eliquis per discussion with family. Oncology follow up per discharge instructions. 1) Acute metabolic/infectious encephalopathy Assessment -Unclear etiology, suspect result of pneumonia or underlying brain lesions Plan - Manage postobstructive pneumonia 2) Postobstructive pneumonia Assessment - Leukocytosis of 13.6 on 09/18/2020 - VS stable, no fever - O2 sats 96% on room air Plan - Initiate cefdinir 300 mg p.o. twice daily x4 days on discharge 3) Multiple brain mass vs Lesions Assessment - Brain MRI; moderate acute infarct in the right cerebellar lobe, multiple cortical infarcts in the superior aspects of the right and left parietal lobes - Brain MRA; no demonstrated aneurysm or infarction of the [place] - Neck MRA; moderate narrowing at the origin of the right vertebral artery Plan - Consult oncology outpatient - to receive feeding instruction per speech therapy 4) History of PE Assessment - Recently suffered event on 08/03/2020 Plan - Initiate Eliquis on discharge 5) Elevated troponin Assessment - Echo; EF of 65%, mild to moderate tricuspid valve insufficiency, mild aortic stenosis, mild to moderate pulmonic valve insufficiency, RVSP estimated to be 42 mmHg Plan -Continue medical management 6) DM 2 Assessment - Hemoglobin A1c 6.9% Plan -Continue Accu-Cheks with sliding scale insulin DVT Prophylaxis - Xarelto on hold due to lung biopsy Patient seen by Chris Lockhart PA-C, under the supervision of Dr. Middleton. Patient Problems: Active and Suspected Problems (Last Reviewed 09/16/20 @ 21:[address] Drake Granados MD) Postobstructive pneumonia (Acute) Occipital mass (Acute) Abnormal cardiac enzyme level (Acute) Abnormal brain CT (Acute) Mass, brain (Acute) Acute encephalopathy (Acute) Subjective: Patient is an 85-year-old male comfortably resting in the chair, alert and oriented x3. While patient is oriented oriented some of his responses to questions are abnormal. Difficult to assess how much patient is comprehending. Denies chest pain, shortness of breath, palpitations, fever, chills, N/V/D. . - Physical Exam Vitals/I&O's: Vital Signs Temp Pulse Resp BP Pulse Ox 97.6 F L 73 14 163/83 H 96 09/19/20 09:18 09/19/20 09:18 09/19/20 09:18 09/19/20 09:18 09/19/20 09:18 Oxygen Flow Rate (L/min) [6] 2 Oxygen Flow Rate (L/min) [5] 2 Oxygen Flow Rate (L/min) [4] 2 Oxygen Flow Rate (L/min) [3] 2 Oxygen Flow Rate (L/min) [2] 2 Oxygen Flow Rate (L/min) 2 Oxygen Delivery Method [6] Nasal Cannula Oxygen Delivery Method [5] Nasal Cannula Oxygen Delivery Method [4] Nasal Cannula Oxygen Delivery Method [3] Nasal Cannula Oxygen Delivery Method [2] Nasal Cannula Oxygen Delivery Method [1 ( Room Air Initial Baseline)] Oxygen Delivery Method Room Air Weight: 148 lb 9.465 oz Body Mass Index (BMI) 26.3 Finger Stick Blood Glucose 132 Intake and Output for Last 24 Hours 09/17/20 09/18/20 09/19/20 23:59 23:59 23:59 Intake Total 388 / 388 343.75 / 343.75 60 / Output Total 805 / 805 120 / 120 Balance -417 / -417 223.75 / 223.75 60 General: Alert, Oriented x3, Cooperative HEENT: Atraumatic, PERRLA, EOMI, Normocephalic Neck: Supple Lungs: Clear to auscultation, Normal air movement Cardiovascular: Regular rate, No murmurs Abdomen: Bowel Sounds Present, Soft, Non Tender Extremities: No edema, Capillary Refill Less than 3 Seconds Skin: No rashes, No breakdown Musculoskeletal: No Tenderness to Palpation of Joints or Extremities Neurological: - - Difficult to assess neurological status due to patient's inability to comprehend Psych/Mental Status: Appropriate Microbiology Past 72 Hours 09/16/20 18:34 Mucosa - Nose SARS-CoV-2 Antigen (Rapid) - Final Laboratory Results 09/18/20 12:54: POC Glucose 142 H 09/18/20 17:19: POC Glucose 230 H 09/18/20 22:13: POC Glucose 242 H 09/18/20 22:45: Troponin I 0.542 H 09/19/20 01:42: Troponin I 0.526 H 09/19/20 04:50: Troponin I 0.587 H 09/19/20 07:08: POC Glucose 157 H Current Medications Acetaminophen (Acetaminophen 325 Mg Tablet) 650 mg PO Q6H PRN PRN PRN Reason: Pain 1-10 or Fever Last Admin: 09/18/20 22:02 Dose: 650 mg Documented by: Albuterol Sulfate (Albuterol 2.5 Mg/3 Ml Vial.Neb.) 2.5 mg INHALATION Q2H PRN PRN PRN Reason: SHORTNESS OF BREATH Dexamethasone Sodium Phosphate (Dexamethasone 4 Mg/Ml Vial) 4 mg IV Q6 [facility] Last Admin: 09/19/20 05:06 Dose: 4 mg Documented by: Enoxaparin Sodium (Enoxaparin 80 Mg/0.8 Ml Syringe) 70 mg SC Q12@0600,1800 [facility] Last Admin: 09/17/20 17:31 Dose: 70 mg Documented by: Fluticasone Propionate (Fluticasone 0.05% 1 [place] Nasal.Sry) 2 spray NASAL DAILY [facility] Last Admin: 09/19/20 09:21 Dose: 2 spray Documented by: Hydralazine HCl (Hydralazine 20 Mg/Ml Vial) 5 mg IV Q30M PRN PRN Reason: to maintain BP goals Famotidine 20 mg/ Sodium (Chloride) 10 mls @ 300 mls/hr IV Q12 [facility] Last Infusion: 09/19/20 09:33 Dose: Infused Documented by: Ceftriaxone Sodium (Rocephin) 1 gm in 50 mls @ 100 mls/hr IV Q24 [facility] Last Infusion: 09/19/20 10:29 Dose: Infused Documented by: Sodium Chloride () 250 mls @ 15 mls/hr IV .[id number] PRN PRN Reason: Saline Flush Last Infusion: 09/18/20 17:22 Dose: 0 mls/hr Documented by: Sodium Chloride () 250 mls @ 15 mls/hr IV .[id number] PRN PRN Reason: Additional IVPB Infusion Insulin Human Lispro (Insulin Lispro 100 Unit/Ml Insuln.Pen) 0 unit SC ACHS [facility]; Protocol Last Admin: 09/19/20 07:10 Dose: 1 units Documented by: Labetalol HCl (Labetalol (Prefilled) 20 Mg/4 Ml) 10 - 20 mg IV Q10M PRN PRN PRN Reason: to Maintain BP Goals Morphine Sulfate (Morphine 2 Mg/Ml Syringe) 2 mg IV Q3H PRN PRN PRN Reason: pain 4-10/10 Last Admin: 09/18/20 22:01 Dose: 2 mg Documented by: Ondansetron HCl (Ondansetron 4 Mg/2 Ml Vial) 4 mg IV Q8H PRN PRN PRN Reason: NAUSEA/VOMITING Sodium Chloride (0.9% Saline Lock 10 Ml Syringe) 10 - 40 ml IV UD PRN PRN Reason: SALINE FLUSH Last Admin: 09/18/20 22:03 Dose: 10 ml Documented by: Discharge Diet: No Restrictions Discharge Activity: Return to Normal Activity Home Medications: Medications to take at Discharge Aspirin [Aspirin, Baby] 81 mg PO QHS 08/25/14 Fluticasone 0.05% [Flonase Nasal [place]] 2 spray NASAL DAILY 08/24/18 Hydrochlorothiazide [Hctz] 25 mg PO DAILY 08/24/18 Metoprolol Tartrate [Lopressor (beta jenni)] 12.5 mg PO BID 08/24/18 fexofenadine 180 mg tablet 180 mg PO BID 05/31/19 carbidopa 25 mg-levodopa 100 mg tablet 1 tab PO TID 03/03/20 enalapril maleate 20 mg tablet 10 mg PO DAILY tab 03/03/20 ketoconazole 2 % shampoo 1 applic TOPICAL 2XW 03/03/20 nitroglycerin 0.4 mg sublingual tablet 0.4 mg SUBLINGUAL Q5-15M #25 tab 03/03/20 triamcinolone acetonide 0.1 % topical cream 1 applic TOPICAL DAILY PRN 03/03/20 Carbidopa/Levodopa [Carbidopa-Levo ER 50-200 Tab] 50 - 200 tab PO QHS 08/03/20 Potassium Chloride 20 meq PO DAILY 08/03/20 Allopurinol 100 mg PO DAILY 08/04/20 Acetaminophen [Tylenol Tablet] 650 mg PO Q6H PRN PRN tab 08/05/20 Amoxicillin 4 tablet PO .COMPLEX 09/16/20 Famotidine 40 mg PO DAILY 09/16/20 Ondansetron HCl 4 mg PO Q8H PRN 09/16/20 Apixaban [Eliquis] 5 mg PO BID #60 tablet 09/19/20 Cefdinir [Omnicef [equiv]] 300 mg PO Q12H #8 capsule 09/19/20 Following Prescriptions Were Given to Patient: Apixaban [Eliquis] 5 mg PO BID #60 tablet Transmission Status: Received by [facility] Cefdinir [Omnicef [equiv]] 300 mg PO Q12H #8 capsule Transmission Status: Received by [facility] Primary Care Physician: Johnson Tavarez Chi, MD [Primary Care Provider] - Please follow up with your Primary Care Physician in: Within the next 2 weeks Please Follow Up With: Oncology When: Within the next 2 weeks Please Follow Up With: Johnson Tavarez Chi, MD Patient Instructions: CT-Guided Lung Biopsy, Discharge Instructions Needle Biopsy: Lung, ED Procedural Sedation, (Adult) Disposition: Home Minutes spent on discharge:: 35 Patient Condition:: Stable Medical Necessity - Tobacco Use Smoking Status: Never smoker Tobacco Use: Non-smoker Meaningful Use Info Meaningful Use Diagnoses (Choose all that apply): Ischemic CVA - CVA Therapy Assessed for PT,OT and/or ST?: Yes - Ischemic Stroke Antithrombotic order at d/c?: Yes Dx of Atrial fib/flutter?: No Statins at discharge?: No Reason Statin not ordered: Drug Declined by Patient Primary Dx Acute Ischemic CVA?: No IV tPA ordered during stay?: No Reason IV t-PA not ordered: Drug Declined by Patient <Mick Middleton - Last Filed: 09/19/20 14:41> Discharge Date and Diagnosis - Primary Discharge Diagnosis Acute Problems: Active Problems (Last Reviewed 09/16/20 @ 21:[address] Drake Granados MD) Postobstructive pneumonia (Acute) Occipital mass (Acute) Abnormal cardiac enzyme level (Acute) Abnormal brain CT (Acute) Mass, brain (Acute) Acute encephalopathy (Acute) - Secondary Discharge Diagnosis Chronic Problems: Chronic Problems (Last Reviewed 09/16/20 @ 21:[address] 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) CAD (coronary artery disease) (Chronic) History of mitral valve repair (Chronic ~12/05/96) annuloplasty 31mm Mildred Austin ring 12/05/96 Presence of stent in coronary artery (Chronic ~09/03/14) PTCA/JODY PDA and PTCA/JODY in distal RCA to prox Rt posterior atrioventricular artery 09/03/14 Pure hypercholesterolemia (Chronic) Essential hypertension (Chronic) Non-rheumatic mitral regurgitation (Chronic) Atherosclerotic heart disease of enterprise coronary artery without angina pectoris (Chronic) Encounter for long-term current use of high risk medication (Chronic) Carotid bruit (Chronic) Palpitations (Chronic) S/P CABG x 1 (Chronic ~12/05/96) CABG X1- MELENDEZ graft to LAD and Mitral annuloplasty using #31 MM ring November 1996 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) Hospital Course and Treatment Imaging Results: 09/19/20 07:26 CT Brain [Brain/Head without Contrast] [CT] Routine Summary of Care Provided: The patient is a 85 year old M [] - Physical Exam Vitals/I&O's: Vital Signs Temp Pulse Resp BP Pulse Ox 97.6 F L 73 14 163/83 H 96 09/19/20 09:18 09/19/20 09:18 09/19/20 09:18 09/19/20 09:18 09/19/20 09:18 Oxygen Flow Rate (L/min) [6] 2 Oxygen Flow Rate (L/min) [5] 2 Oxygen Flow Rate (L/min) [4] 2 Oxygen Flow Rate (L/min) [3] 2 Oxygen Flow Rate (L/min) [2] 2 Oxygen Flow Rate (L/min) 2 Oxygen Delivery Method [6] Nasal Cannula Oxygen Delivery Method [5] Nasal Cannula Oxygen Delivery Method [4] Nasal Cannula Oxygen Delivery Method [3] Nasal Cannula Oxygen Delivery Method [2] Nasal Cannula Oxygen Delivery Method [1 ( Room Air Initial Baseline)] Oxygen Delivery Method Room Air Weight: 148 lb 9.465 oz Body Mass Index (BMI) 26.3 Finger Stick Blood Glucose 132 Intake and Output for Last 24 Hours 09/17/20 09/18/20 09/19/20 23:59 23:59 23:59 Intake Total 388 / 388 343.75 / 343.75 60 / 60 Output Total 805 / 805 120 / 120 Balance -417 / -417 223.75 / 223.75 60 / 60 Microbiology Past 72 Hours 09/16/20 18:34 Mucosa - Nose SARS-CoV-2 Antigen (Rapid) - Final Laboratory Results 09/18/20 17:19: POC Glucose 230 H 09/18/20 22:13: POC Glucose 242 H 09/18/20 22:45: Troponin I 0.542 H 09/19/20 01:42: Troponin I 0.526 H 09/19/20 04:50: Troponin I 0.587 H 09/19/20 07:08: POC Glucose 157 H 09/19/20 11:48: POC Glucose 215 H Current Medications Acetaminophen (Acetaminophen 325 Mg Tablet) 650 mg PO Q6H PRN PRN PRN Reason: Pain 1-10 or Fever Last Admin: 09/18/20 22:02 Dose: 650 mg Documented by: Albuterol Sulfate (Albuterol 2.5 Mg/3 Ml Vial.Neb.) 2.5 mg INHALATION Q2H PRN PRN PRN Reason: SHORTNESS OF BREATH Apixaban (Apixaban 5 Mg Tablet) 5 mg PO BID [facility] Last Admin: 09/19/20 13:34 Dose: 5 mg Documented by: Dexamethasone Sodium Phosphate (Dexamethasone 4 Mg/Ml Vial) 4 mg IV Q6 [facility] Last Admin: 09/19/20 13:34 Dose: Not Given Documented by: Fluticasone Propionate (Fluticasone 0.05% 1 [place] Nasal.Sry) 2 spray NASAL DAILY [facility] Last Admin: 09/19/20 09:21 Dose: 2 spray Documented by: Hydralazine HCl (Hydralazine 20 Mg/Ml Vial) 5 mg IV Q30M PRN PRN Reason: to maintain BP goals Famotidine 20 mg/ Sodium (Chloride) 10 mls @ 300 mls/hr IV Q12 [facility] Last Infusion: 09/19/20 09:33 Dose: Infused Documented by: Ceftriaxone Sodium (Rocephin) 1 gm in 50 mls @ 100 mls/hr IV Q24 [facility] Last Infusion: 09/19/20 10:29 Dose: Infused Documented by: Sodium Chloride () 250 mls @ 15 mls/hr IV .[id number] PRN PRN Reason: Saline Flush Last Infusion: 09/18/20 17:22 Dose: 0 mls/hr Documented by: Sodium Chloride () 250 mls @ 15 mls/hr IV .[id number] PRN PRN Reason: Additional IVPB Infusion Insulin Human Lispro (Insulin Lispro 100 Unit/Ml Insuln.Pen) 0 unit SC [facility]; Protocol Last Admin: 09/19/20 11:50 Dose: 2 units Documented by: Labetalol HCl (Labetalol (Prefilled) 20 Mg/4 Ml) 10 - 20 mg IV Q10M PRN PRN PRN Reason: to Maintain BP Goals Morphine Sulfate (Morphine 2 Mg/Ml Syringe) 2 mg IV Q3H PRN PRN PRN Reason: pain 4-10/10 Last Admin: 09/18/20 22:01 Dose: 2 mg Documented by: Ondansetron HCl (Ondansetron 4 Mg/2 Ml Vial) 4 mg IV Q8H PRN PRN PRN Reason: NAUSEA/VOMITING Sodium Chloride (0.9% Saline Lock 10 Ml Syringe) 10 - 40 ml IV UD PRN PRN Reason: SALINE FLUSH Last Admin: 09/18/20 22:03 Dose: 10 ml Documented by: Addendum: Dr. Middleton I personally examined the patient and reviewed the chart. I agree with the above. 85-year-old male presents with slow speech and initially thought to be a CVA. He thought that he may have overdosed on GERD medication. Per him and the he is much better today and is back to his normal self. However in the process of working him up for the possible CVA he had a CT scan of his brain which demonstrated a possible mass versus infarct especially in the setting of a right lower lobe lung mass that was found about a month ago on CT scan. He still has that lung mass on chest x-ray and therefore we will plan for CT-guided biopsy in the morning and currently pending MRI evaluation of this brain lesion. He was recently diagnosed with bilateral PEs and he did not receive his Xarelto yesterday evening. He was transitioned to therapeutic Lovenox which we will hold after tonight's dose in preparation for the CT-guided biopsy. After his biopsy will hold all anticoagulation for 24 hours and he can restart his Xarelto Tuesday evening. As for his cardiac function and his elevated troponins, cardiology feels that we should be able to manage him medically for now. There is concern for postobstructive pneumonia secondary to the right lower lobe mass, will continue with Rocephin and azithromycin, leukocytosis has resolved. 09/18/2020: Doing about the same today. His confusion and slow mentation has resolved however MRI did demonstrate a stroke in the cerebellum as well as tiny bilateral cortical infarcts. He does seem to be asymptomatic from the strokes, however the biggest risk is the fact that he has a right lower lobe lung mass that could potentially be cancerous that is leading to his hypercoagulable state given the fact that he recently had bilateral PEs and now has a stroke. I did discuss with him and his about the risk for hemorrhagic conversion versus the risk of repeated strokes if we do not reinitiate anticoagulation fairly soon. I did discuss with him also the possibility of transition from Xarelto to Eliquis given the fact that Eliquis is dosed twice daily could provide at least some breathing room in terms of bleeding risk compared to Xarelto. He does not feel ready for discharge today therefore we will keep him another day and hopefully his will be able to come to the hospital tomorrow so she can be taught how to feed him secondary to speech therapy recommendations. He is a nectar thick liquid with small bites and needing to alternate food with liquid with head of bed at 90 degrees and to remain sitting upright for 30 minutes after eating. He does not need a swallow study. 09/19/2020: Doing well today, speech therapy decided that they did not want us swallow evaluation however they did want to train the on how to feed him and watch him. Repeat CT scan today did not demonstrate head bleed therefore it is okay to restart him on anticoagulation given his bilateral pulmonary embolisms. I did discuss with him and his extensively the risk of anticoagulation in the setting of recent strokes expressed understanding of those risks and would like to proceed with anticoagulation. Would recommend that he follow-up with pulmonology in 1 to 2 weeks for follow-up of the biopsy for his right lower lobe lung mass as well as follow-up for his bilateral PEs. 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 I did discuss the case with the oncology liaison and he already has an oncology appointment set up from September 25. I discussed this diagnosis as well as the plan for discharge and expressed understanding and would like to go home today. Inpatient E&M: [id number] Disch Hosp
--- NOTE | 2020-09-19 11:28 | PHA.DC.MC ---
Pharmacy Service has performed discharge medication reconciliation and counseling for this patient. 1. APIXABAN 5MG PO BID 2. CEFDINIR 300MG PO Q12 X 4 DAYS The patient's discharge medication list was reviewed for discrepancies and discrepancies were resolved. Home Medications Aspirin [Aspirin, Baby] 81 mg PO QHS 08/25/14 Fluticasone 0.05% [Flonase Nasal [place]] 2 spray NASAL DAILY 08/24/18 Hydrochlorothiazide [Hctz] 25 mg PO DAILY 08/24/18 Metoprolol Tartrate [Lopressor (beta jenni)] 12.5 mg PO BID 08/24/18 fexofenadine 180 mg tablet 180 mg PO BID 05/31/19 carbidopa 25 mg-levodopa 100 mg tablet 1 tab PO TID 03/03/20 enalapril maleate 20 mg tablet 10 mg PO DAILY tab 03/03/20 ketoconazole 2 % shampoo 1 applic TOPICAL 2XW 03/03/20 nitroglycerin 0.4 mg sublingual tablet 0.4 mg SUBLINGUAL Q5-15M #25 tab 03/03/20 triamcinolone acetonide 0.1 % topical cream 1 applic TOPICAL DAILY PRN 03/03/20 Carbidopa/Levodopa [Carbidopa-Levo ER 50-200 Tab] 50 - 200 tab PO QHS 08/03/20 Potassium Chloride 20 meq PO DAILY 08/03/20 Allopurinol 100 mg PO DAILY 08/04/20 Acetaminophen [Tylenol Tablet] 650 mg PO Q6H PRN PRN tab 08/05/20 Amoxicillin 4 tablet PO .COMPLEX 09/16/20 Famotidine 40 mg PO DAILY 09/16/20 Ondansetron HCl 4 mg PO Q8H PRN 09/16/20 Apixaban [Eliquis] 5 mg PO BID #60 tablet 09/19/20 Cefdinir [Omnicef [equiv]] 300 mg PO Q12H #8 capsule 09/19/20 The patient was counseled on the following discharge medications and changes in medications for homegoing were reviewed. The Reason for Use, instructions for use, and potential side effects were reviewed for all new medications. The patient's questions regarding all of their medications were answered. The patient was able to verbally demonstrate an understanding of their discharge medications.
[2020-09-19 12:05] LABS: Bedside Glucose 215 mg/dL (70-110)
[2020-09-19] MEDS: APIXABAN 5 MG TABLET PO (13:34)
[2020-09-19 14:39] VITALS: BMI 26.3
[2020-09-19] MEDS: Acetaminophen 325 MG Tablet 650 MG PO (14:44)
--- NOTE | 2020-09-22 15:56 | CASEMGMT ---
RN CM Discharge Follow-up Phone Call: GINNA: Jemima Strata: 3 Call Date: 09/22/20 Discharge Date: 09/19/20 Time of Call: [id number] Duration: 5 min Admitting Diagnosis: Elevated troponin, multiple brain masses RN CM completed follow-up phone call after recent hospitalization. answered and patient does not want to talk. states patient doing ok but having problems with swallowing. RN CM inquired if Outpt [facility] had called from [facility]. stated yes but did not want to schedule appt yet till patient feeling better. RN CM encouraged to schedule appt with ST as that will help patient's swallowing improve. voiced understanding. Patient has follow-up appts scheduled. Patient was able to fill prescriptions without any issues. had no further questions or concerns at this time.
== END 2020-09-19 15:05 | disposition home or self-care (01) | DRG 64 ==
LOC: ED 20:02 → PCU 20:51
PROVIDERS: Nurse Practitioner Family; Admitting Provider Hospitalist; Emergency Provider Emergency Medicine; PCP Family Medicine Geriatric Medicine; Visit Provider Family Medicine
DX: I63.9 Cerebral infarction, unspecified (principal); J18.9 Pneumonia, unspecified organism; C34.31 Malignant neoplasm of lower lobe, right bronchus or lung; G93.49 Other encephalopathy; I27.82 Chronic pulmonary embolism; D68.59 Other primary thrombophilia; R47.89 Other speech disturbances; R53.1 Weakness; G93.89 Other specified disorders of brain; I25.10 Atherosclerotic heart disease of native coronary artery without angina pectoris; E78.00 Pure hypercholesterolemia, unspecified; I10 Essential (primary) hypertension; I08.3 Combined rheumatic disorders of mitral, aortic and tricuspid valves; E11.9 Type 2 diabetes mellitus without complications; G20 Parkinson's disease; R13.10 Dysphagia, unspecified; M10.9 Gout, unspecified; R22.0 Localized swelling, mass and lump, head; R00.2 Palpitations; R09.89 Other specified symptoms and signs involving the circulatory and respiratory systems; R74.8 Abnormal levels of other serum enzymes; Z95.1 Presence of aortocoronary bypass graft; Z95.5 Presence of coronary angioplasty implant and graft; Z79.82 Long term (current) use of aspirin; Z79.4 Long term (current) use of insulin; Z79.01 Long term (current) use of anticoagulants; Z79.899 Other long term (current) drug therapy; Z86.73 Personal history of transient ischemic attack (TIA), and cerebral infarction without residual deficits
CPT/HCPCS: 36415; 70450; 70544; 70549; 70553; 71045; 71046; 77012; 80048; 80061; 80076; 81001; 82962; 83036; 83735; 84484; 85025; 85027; 85610; 85730; 87426; 88172; 88305; 88313; 88341; 88342; 92526; 92610; 93005; 93306; 94762; 97162; 97530; 97802; 99155; 99156; 99285; A9575; J7040; J7050; A4216; C2613; J3490

== ENCOUNTER → 2020-09-24 14:07 | Outpatient (CLI) | payer MEDICARE, OTHER, SELFPAY ==
[2020-09-19 14:39] VITALS: BMI 26.3
[2020-09-24 16:13] LABS: Absolute Lymphocyte Count 1.31 X10^3/uL (0.83-4.51); Absolute Neutrophil Count 11.5 X10^3/uL (2.0-7.7); Basophil# 0.03 X10^3/uL; Basophil% 0.2 % (0-1); Eosinophil# 1.38 X10^3/uL; Eosinophils% 8.8 % (0-5); Hematocrit 39.3 % (40-54); Hemoglobin 11.9 g/dL (13.0-16.5); Lymphocyte # 1.31 X10^3/ul (4.0); Lymphocyte % 8.3 % (19-41); Mean Corp Hgb Conc 30.3 g/dL (32-36); Mean Corpuscular Volume 89.1 fL (80-94); Mean Platelet Vol. 11.6 fl (6.2-12.0); Monocyte# 1.38 X10^3/uL; Monocyte% 8.8 % (0-10); NRBC Flagged by Analyzer 0 % (0-5); Neutrophil # 11.45 X10^3/uL (2.7-7.7); Neutrophil % 72.6 % (47-70); Platelet Count 169 K/mm3 (150-450); RBC Distribution Width CV 15.3 % (11.6-14.6); RBC Distribution Width SD 48.8 fl (35.1-43.9); Red Blood Count 4.41 M/mm3 (4.6-6.2); White Blood Count 15.8 K/mm3 (4.4-11.0)
[2020-09-24 16:45] LABS: ALB/GLOB Ratio 0.7 RATIO (0.9-2.4); AST(SGOT) 10 U/L (15-37); Alanine Aminotransfer ALT/SGPT 11 U/L (16-61); Albumin, Serum 2.8 g/dL (3.2-5.0); Alkaline Phosphatase 39 U/L (45-117); Anion Gap 5 (5-15); BUN 32 mg/dL (7-18); BUN/Creat Ratio 32.5 RATIO (10-20); Chloride 101 mmol/L (98-107); Creatinine, Serum 0.98 mg/dL (0.70-1.30); EST Glomerular Filtration Rate 77 mL/min (>60); Est Glom Filt Rate - Afr Amer 93 mL/min (>60); Globulin 4.2 g/dL (2.2-4.2); Glucose 123 mg/dL (74-106); Potassium 3.6 mmol/L (3.5-5.1); Sodium Level 137 mmol/L (136-145); Thyroid Stim Hormone (TSH) 0.95 uIU/mL (0.358-3.74); Uric Acid 9.1 mg/dL (3.5-7.2)
[2020-09-24 17:13] LABS: Vitamin D,25 Hydroxy 24.5 ng/mL
== END ==
PROVIDERS: PCP Family Medicine Geriatric Medicine; Visit Provider Family Medicine Geriatric Medicine
DX: I10 Essential (primary) hypertension (principal); E55.9 Vitamin D deficiency, unspecified; M10.9 Gout, unspecified
CPT/HCPCS: 36415; 80053; 82306; 84443; 84550; 85025